=== PATIENT | male | born 1945 | race Two or more races ===

== ENCOUNTER 2020-05-05 13:16 | Outpatient (REF) | payer MEDICARE, SELFPAY | END 2020-05-05 13:17 | disposition home or self-care (01) | LOC: HO.HAP 13:16 | PROVIDERS: Visit Provider Internal Medicine | DX: Z46.1 Encounter for fitting and adjustment of hearing aid (principal) | CPT/HCPCS: 92592; 99499 ==

== ENCOUNTER 2020-06-24 11:26 | Outpatient (REF) | payer MEDICARE, SELFPAY | END 2020-06-24 11:27 | disposition home or self-care (01) | LOC: HO.HAP 11:26 | PROVIDERS: Visit Provider Internal Medicine | DX: Z46.1 Encounter for fitting and adjustment of hearing aid (principal) | CPT/HCPCS: V5266 ==

== ENCOUNTER 2020-08-05 09:07 | Outpatient (REF) | payer MEDICARE, SELFPAY ==
[2020-08-05 10:03] LABS: MANUAL DIFF FLAG NO
[2020-08-05 10:15] LABS: Basophils Absolute Auto 0.1 X10*3/uL (0.0-0.2); Basophils Percent Auto 0.9 % (0-2); Eosinophils Absolute Auto 0.2 X10*3/uL (0.0-0.4); Eosinophils Percent Auto 3.4 % (0-4); Hematocrit 43.9 % (42-52); Hemoglobin 14.6 g/dl (14.0-18.0); Imm Gran Abs Auto 0.01 X10*3/uL (0.00-0.03); Imm Gran Pct Auto 0.2 % (0.0-0.4); Lymphocytes Absolute Auto 1.5 X10*3/uL (1.2-4.9); Lymphocytes Percent Auto 26.2 % (20-40); Mean Corpuscular HGB Conc 33.3 g/dl (31.0-36.0); Mean Corpuscular Hemoglobin 32.2 pg (27.0-33.0); Mean Corpuscular Volume 96.9 fL (80-98); Monocytes Absolute Auto 0.6 X10*3/uL (0.1-1.2); Neutrophils Absolute Auto 3.5 X10*3/uL (2.0-8.3); Neutrophils Percent Auto 59.3 % (45-73); Platelet Count 223 X10*3/uL (160-400); Red Blood Count 4.53 X10*6/uL (4.60-5.80); Red Cell Distribution Width 12.3 % (11.0-16.0); White Blood Count 5.8 X10*3/uL (4.8-10.8)
[2020-08-05 10:39] LABS: Alanine Aminotransferase 23 U/L (0-40); Alkaline Phosphatase 77 U/L (39-117); Anion Gap 10 (12-20); Aspartate Amino Transferase 25 U/L (5-37); Bilirubin Total 0.6 mg/dL (0.0-1.0); Carbon Dioxide 30 mmol/L (22-29); Chloride 104 mmol/L (96-108); Cholesterol 130 mg/dL; Estimated Glomerular Filt Rate > 60; Glucose Fasting 102 mg/dL (60-99); HDL Cholesterol 31 mg/dL; LDL Cholesterol Calculated 63 mg/dl; Potassium 4.3 mmol/L (3.3-5.1); Sodium 140 mmol/L (135-145); Total Protein 7.6 g/dL (6.5-8.0); Triglycerides 181 mg/dL
[2020-08-05 10:51] LABS: Blood Urea Nitrogen 11 mg/dL (9-16); Calcium 8.9 mg/dL (8.4-10.2)
[2020-08-06 04:21] LABS: Folate 4.3 ng/mL (> or = 4.0); Vitamin B12 291 pg/mL (200-900)
== END 2020-08-05 09:08 | disposition home or self-care (01) ==
LOC: HO.LAB 09:07
PROVIDERS: PCP Internal Medicine; Visit Provider Internal Medicine
DX: E78.5 Hyperlipidemia, unspecified (principal); D51.0 Vitamin B12 deficiency anemia due to intrinsic factor deficiency; I10 Essential (primary) hypertension
CPT/HCPCS: 36415; 80053; 80061; 82607; 82746; 85025

== ENCOUNTER 2020-08-07 13:23 | Outpatient (REF) | payer MEDICARE, SELFPAY ==
[2020-08-07 14:03] LABS: COVID-19 Test Negative (Negative)
== END 2020-08-07 13:24 | disposition home or self-care (01) ==
LOC: HO.LAB 13:23
PROVIDERS: Visit Provider Internal Medicine
DX: Z20.822 Contact with and (suspected) exposure to COVID-19 (principal)
CPT/HCPCS: 36415; 87635; C9803

== ENCOUNTER 2020-08-12 10:09 | Outpatient (REF) | payer MEDICARE, SELFPAY | END 2020-08-12 10:10 | disposition home or self-care (01) | LOC: HO.LAB 10:09 | PROVIDERS: Visit Provider Internal Medicine | DX: Z20.822 Contact with and (suspected) exposure to COVID-19 (principal) | CPT/HCPCS: C9803; U0003; U0005 ==

== ENCOUNTER 2020-09-22 11:30 | Outpatient (REF) | payer MEDICARE, SELFPAY ==
--- NOTE | ~2020-09-22 | XR_ITS ---
EXAMINATION: XR SHOULDER, LEFT CLINICAL INFORMATION: Left shoulder pain. COMPARISON: None TECHNIQUE: AP external rotation, Grashey, scapular Y, and axillary views of the left shoulder. FINDINGS: There is no evidence of acute fracture or dislocation of the left shoulder. No calcific tendinitis is appreciated. Glenohumeral joint appears unremarkable with minimal spurring inferiorly. There is mild spurring about the acromioclavicular joint. No widening of the coracoclavicular space is seen. XR/XR shoulder LT min 2V IMPRESSION: No significant left shoulder abnormality appreciated.
== END 2020-09-22 11:31 | disposition home or self-care (01) ==
LOC: HO.XRAY 11:30
PROVIDERS: PCP Internal Medicine; Visit Provider Internal Medicine
DX: M25.512 Pain in left shoulder (principal)
CPT/HCPCS: 73030

== ENCOUNTER 2020-11-09 16:06 | Inpatient (IN) | payer MEDICARE, SELFPAY ==
--- NOTE | ~2020-11-09 | CT_ITS ---
EXAMINATION: CT ANGIOGRAM HEAD CT ANGIOGRAM NECK CLINICAL INFORMATION: Left-sided weakness. Acute cerebrovascular accident. COMPARISON: None available. TECHNIQUE: Initial noncontrast fall internship imaging of the head and neck was performed. Noncontrast head CT was also performed. Test bolus sequences followed by intravenous administration 70 mL of Omnipaque 350. Helical imaging was performed in the axial plane from the aortic arch to the skull vertex. Delayed postcontrast imaging of the head was also performed. The data was processed at the lead neurodiagnostic technologist's workstation for generation of MIP sequences. Angled MIPs and volume rendered reformatted images were also generated at an offline 3D workstation. Stenoses are assessed in accordance with NASCET criteria unless otherwise indicated. This CT examination was performed using dose optimization techniques as appropriate, variously including the following: *Automated exposure control. *Adjustment of mA and/or kV according to patient size (this includes techniques or standardized protocols for targeted exams where dose is matched to indication/reason for exam; i.e. extremities or head). *Use of iterative reconstruction technique. DLP: 2485 mGy-cm FINDINGS: CT Head: There is no evidence of acute intracranial hemorrhage or edematous territorial infarction. A few foci of hypoattenuation in the periventricular and deep white matter are consistent with mild microangiopathy. Orellana-white matter differentiation is preserved. Proportional prominence of the ventricles and sulcal spaces. No evidence for obstructive hydrocephalus. No abnormal mass effect or midline shift. No extra-axial fluid collections. No pathologic intra-axial enhancement or regional oligemia. No acute soft tissue or osseous abnormalities. Moderate mucosal thickening of the paranasal sinuses. The mastoid air cells and middle ear cavities are clear. Multifocal odontogenic enamel erosions. CT Neck: The thyroid gland and remaining cervical soft tissues are within normal limits. Moderate degenerative disc disease from C3-T1 with disc-osteophyte complex formation. Facet and uncovertebral joint arthropathy leads to osseous encroachment on the neural foramina from C3-T1. CT Upper Chest: The visualized lung apices and upper mediastinum are within normal limits. Neck CTA: Aortic Arch: Normal contour and caliber with mild calcific atherosclerotic disease. Classic 3 vessel branching pattern of the aortic arch. Great Vessel Origins: No significant stenosis of the branch origins. Right Common Carotid Artery: No focal stenosis or occlusion. Cervical Right Internal Carotid Artery: Calcific atherosclerotic disease of the carotid bulb and proximal internal carotid artery causing less than 50% stenosis. Left Common Carotid Artery: No focal stenosis or occlusion. Cervical Left Internal Carotid Artery: Mild calcific atherosclerotic disease of the carotid bulb and proximal internal carotid artery without flow-limiting stenosis. Cervical Right Vertebral Artery: Co-dominant. Atherosclerotic disease causes mild to moderate narrowing of the origin. Otherwise, no focal stenosis or occlusion. Cervical Left Vertebral Artery: Co-dominant. No focal stenosis or occlusion. Brain CTA: Intracranial Internal Carotid Arteries: Minimal calcific atherosclerotic disease of the intracranial internal carotid arteries without occlusion or flow-limiting stenosis. Right Anterior Cerebral Artery: Normal A1 segment. Normal opacification of the distal DARRELL segments. Left Anterior Cerebral Artery: Normal A1 segment. Normal opacification of the distal DARRELL segments. Anterior Communicating Artery: Normal. Right Middle Cerebral Artery: Normal M1 segment of the MCA without focal stenosis or occlusion. Normal arborization of the distal segments. Left Middle Cerebral Artery: Normal M1 segment of the MCA without focal stenosis or occlusion. Normal arborization of the distal segments. Right Vertebral Artery: Normal V4 segment. The posterior inferior cerebellar artery is not well opacified; however, there is no CT evidence of acute occlusion. Left Vertebral Artery: Normal V4 segment. Normal opacification of the proximal segments of the posterior inferior cerebellar artery. Basilar Artery: Normal without focal stenosis or occlusion. Normal appearance of the proximal superior cerebellar arteries. Right Posterior Cerebral Artery: Normal P1 segment. Normal opacification of the distal LEAF COVERER segments. Left Posterior Cerebral Artery: Normal P1 segment. Normal opacification of the distal LEAF COVERER segments. Normal opacification of the superior sagittal, straight, transverse, and sigmoid sinuses. CT/CT angio head neck IMPRESSION: 1. No evidence of acute intracranial hemorrhage or edematous territorial infarction. Mild underlying microangiopathy and generalized cerebral volume loss. 2. CTA of the head and neck without proximal occlusion or flow-limiting stenosis. 3. Moderate multilevel degenerative spondyloarthropathy of the cervical spine. This critical result was discussed with Dr. Bueno at 20:38 on 11/09/2020 and it was ascertained that the content and urgency of the report was understood at the time of direct communication.
--- NOTE | ~2020-11-09 | MR_ITS ---
EXAMINATION: MR BRAIN WITHOUT CONTRAST CLINICAL INFORMATION: Stroke. COMPARISON: Head CTA November 09, 2020. TECHNIQUE: Multiplanar, multisequence imaging of the brain was performed without intravenous contrast. FINDINGS: There is a small focus of acute lacunar infarction within the right lateral thalamus. There is no large territory infarction, hemorrhage, or mass. Mild to moderate patchy foci of T2/FLAIR hyperintensity is seen in the cerebral white matter most typical of chronic microangiopathy. The ventricles are normal in size without hydrocephalus. A small focus of chronic lacunar infarction is seen in the right superior cerebellum. The major arterial flow voids appear preserved at the skull base. There is scattered mild to moderate paranasal sinus mucosal thickening. MR/MR head/brain wo con IMPRESSION: Small focus of acute lacunar infarction in the right lateral thalamus. Background changes of mild to moderate chronic microangiopathy. Small chronic lacunar infarct seen in the right cerebellum.
[2020-11-09 16:14] VITALS: BP 187/90; PULSE 62; RESP 18; TEMP 36.8; O2SAT 96; BMI 30.5
--- NOTE | 2020-11-09 18:01 | ECG_ITS ---
Test Reason : WEAKNESS Blood Pressure : / mmHG Vent. Rate : 055 BPM Atrial Rate : 055 BPM P-R Int : 164 ms QRS Dur : 084 ms QT Int : 420 ms P-R-T Axes : 040 025 037 degrees QTc Int : 401 ms Sinus bradycardia with Premature atrial complexes in a pattern of bigeminy Otherwise normal ECG When compared with ECG of 02-JUL-2016 09:25, No significant change was found Referred By: Max Foote Electronically Signed By:Narendra Ryan
[2020-11-09 18:32] LABS: MANUAL DIFF FLAG NO
[2020-11-09 18:34] LABS: Basophils Absolute Auto 0.1 X10*3/uL (0.0-0.2); Basophils Percent Auto 0.8 % (0-2); Eosinophils Absolute Auto 0.4 X10*3/uL (0.0-0.4); Hematocrit 44.3 % (42-52); Imm Gran Abs Auto 0.01 X10*3/uL (0.00-0.03); Imm Gran Pct Auto 0.2 % (0.0-0.4); Lymphocytes Absolute Auto 2.9 X10*3/uL (1.2-4.9); Lymphocytes Percent Auto 46.4 % (20-40); Mean Corpuscular HGB Conc 33.9 g/dl (31.0-36.0); Mean Corpuscular Volume 97.6 fL (80-98); Mean Platelet Volume 10.4 fL (9.4-12.4); Monocytes Absolute Auto 0.6 X10*3/uL (0.1-1.2); Monocytes Percent Auto 9.6 % (2-11); Neutrophils Absolute Auto 2.3 X10*3/uL (2.0-8.3); Platelet Count 207 X10*3/uL (160-400); Red Blood Count 4.54 X10*6/uL (4.60-5.80); Red Cell Distribution Width 13.2 % (11.0-16.0); White Blood Count 6.3 X10*3/uL (4.8-10.8)
[2020-11-09 18:41] LABS: INTERNATIONAL NORM RATIO 1.1 (0.9-1.1); Prothrombin Time 12.3 SEC (9.9-13.0)
[2020-11-09 18:43] LABS: Partial Thromboplastin Time 32.9 SEC (24.1-38.0)
[2020-11-09 19:01] LABS: Anion Gap 12 (12-20); Blood Urea Nitrogen 11 mg/dL (9-16); Calcium 9.1 mg/dL (8.4-10.2); Carbon Dioxide 29 mmol/L (22-29); Chloride 104 mmol/L (96-108); Estimated Glomerular Filt Rate > 60; Glucose Random 93 mg/dL (60-115); Potassium 4.6 mmol/L (3.3-5.1); Sodium 140 mmol/L (135-145)
[2020-11-09 19:07] LABS: Troponin-I High Sensitivity 7.5 ng/L (<3.5-35.0)
--- NOTE | 2020-11-09 19:18 | ED_ITS ---
HPI - Neuro Symptoms/Deficit General Chief Complaint: General Medical Stated Complaint: stroke Time Seen by Provider: 11/09/20 16:45 Source: patient and family Mode of arrival: ambulatory Limitations: no limitations History of Present Illness HPI Narrative: Patient has history of hypertension coronary disease on baby aspirin since 1400 11/08 patient noticed sudden onset of weakness in his left leg and left arm was walking and able to ambulate because of weakness almost fell weakness continued all day and today he comes as informed his daughter who brought her to the hospital. No headache no seizures Related Data Home Medications Medication Instructions Recorded Confirmed aspirin 1 tab PO DAILY 11/09/20 11/09/20 metoprolol tartrate 1 tab PO DAILY 11/09/20 11/09/20 omeprazole 1 cap PO QAM 11/09/20 11/09/20 rosuvastatin 1 tab PO DAILY 11/09/20 11/09/20 trazodone 2 tab PO BEDTIME PRN 11/09/20 11/09/20 Allergies Allergy/AdvReac Type Severity Reaction Status Date / Time Penicillins [PENICILLINS] Allergy Intermediate Rash Verified 11/09/20 16:14 atorvastatin AdvReac Intermediate elevated Verified 11/09/20 16:14 liver enzymes quetiapine [From SEROQUEL] AdvReac Intermediate ERRATIC Verified 11/09/20 16:14 BEHAVIOR, NIGHTMARES,DIZZINESS Review of Systems Review of Systems: Constitutional : No Weight loss, No Fever, No Chills ENT/Mouth : No sore throat, No Rhinorrhea Eyes: No Eye Pain, No Swelling Cardiovascular : No Chest Pain, no palpitations Respiratory : No Cough, No Sputum, no shortness of breath Gastrointestinal : no Nausea, No Vomiting, No Diarrhea, No abdominal Pain, no black stools Genitourinary : No Dysuria, No Urinary Frequency Musculoskeletal : No joint pain, No Myalgias, No Joint Swelling Skin : No Skin Lesions, No rash Neuro : + Weakness, No Numbness, No Dizziness, No Headache Psych : No Anxiety/Panic, No Depression Heme/Lymph: No Bruising, No Lymphadenopathy Endocrine : No Polyuria, No Polydipsia All other systems reviewed and are negative Neurologic: Denies Abnormal speech present [facility] Past Medical History Medical History CAD (coronary artery disease) Dyslipidemia Essential hypertension GERD (gastroesophageal reflux disease) Hearing loss Insomnia Left shoulder pain Pernicious anemia Surgical History History of angioplasty Family History Family History Father No problems noted. Mother No problems noted. Social History Social History Alcohol intake: never Cigarettes Per Day: 5 Advance Directives: No Advance Directives Information Provided: Yes Physical Exam Vital Signs: Vital Signs: Last Vital Signs Temp 98.2 F 11/09/20 16:14 Pulse 62 11/09/20 16:14 Resp 18 11/09/20 16:14 BP 187/90 H 11/09/20 16:14 Pulse Ox 96 11/09/20 16:14 Body Mass Index 30.5 Const: General: healthy appearing and comfortable Orientation/consciousness: patient oriented x3 HENMT: Head: Yes normocephalic and Yes atraumatic Eyes: General: appearance normal, both eyes and all related structures Neck: Neck: Yes normal visual inspection and Yes full ROM Chest: Chest palpation & inspection: normal inspection of the chest Resp: Effort & Inspection: normal respiratory effort Auscultation: clear to auscultation bilaterally, no crackles and no rales Cardio: Palpation: normal PMI Rate: regular rate Rhythm: regular rhythm Heart sounds: S1 normal heart sound present and S2 normal heart sound present Bruits: Abdominal aortic bruit present Peripheral pulses: Peripheral pulses 2+ throughout GI: Inspection: Yes normal to inspection Palpation (GI): Abdominal aortic bruit present, Soft to palpation and nontender Auscultation: normal bowel sounds : General: Yes no CVA tenderness Back/Spine/Pelvis: Back: no CVA tenderness Thoracic/Lumbar Spine: thoracic and lumbar spine normal to inspection Skin: General skin exam: no rashes or lesions noted Neuro: General: patient oriented x3 and CN's II-XI intact bilaterally Cognition (Neuro): normal cognition Speech: No Abnormal speech present Gait exam (Neuro): Staggering gait present Motor exam (neuro): Other motor observations present (+4/5 left upper extremity 4 /5 left lower extremity 5/5 right-sided) MDM - Neuro Symptoms/Deficit MDM Narrative Medical decision making narrative: Patient with acute onset of left-sided weakness more than 24 hours ago CTA head neck negative for any LV 0 or stroke but clinical examination patient does have weakness more in the left lower extremities than the left upper extremity without any facial involvement or speech . Case discussed Dr. Stroud neurologist plan to admit continue aspirin MRI 2D echo in the morning to rule out any arrhythmias Lab Data Attestation: I reviewed the patient's lab results. Result diagrams: 11/09/20 18:28 11/09/20 18:28 Labs: Lab Results 11/09/20 11/09/20 11/09/20 Range/Units 18:28 18:28 18:28 WBC 6.3 (4.8-10.8) X10*3/uL RBC 4.54 L (4.60-5.80) X10*6/uL Hgb 15.0 (14.0-18.0) g/dl Hct 44.3 (42-52) % MCV 97.6 (80-98) fL MCH 33.0 (27.0-33.0) pg MCHC 33.9 (31.0-36.0) g/dl RDW 13.2 (11.0-16.0) % Plt Count 207 (160-400) X10*3/uL MPV 10.4 (9.4-12.4) fL Immature Gran % (Auto) 0.2 (0.0-0.4) % Neut % (Auto) 36.0 L (45-73) % Lymph % (Auto) 46.4 H (20-40) % Spink % (Auto) 9.6 (2-11) % Eos % (Auto) 7.0 H (0-4) % Baso % (Auto) 0.8 (0-2) % Lymph # (Auto) 2.9 (1.2-4.9) X10*3/uL Spink # (Auto) 0.6 (0.1-1.2) X10*3/uL Eos # (Auto) 0.4 (0.0-0.4) X10*3/uL Baso # (Auto) 0.1 (0.0-0.2) X10*3/uL Abs Immat Gran (auto) 0.01 (0.00-0.03) X10*3/uL Absolute Neuts (auto) 2.3 (2.0-8.3) X10*3/uL Absolute Nucleated RBC 0.000 (0.0-0.012) X10*3/uL Nucleated RBC % (auto) 0.0 (0.0-0.2) /100WBC PT 12.3 (9.9-13.0) SEC INR 1.1 (0.9-1.1) APTT 32.9 (24.1-38.0) SEC Sodium 140 (135-145) mmol/L Potassium 4.6 (3.3-5.1) mmol/L Chloride 104 (96-108) mmol/L Carbon Dioxide 29 (22-29) mmol/L Anion Gap 12 (12-20) BUN 11 (9-16) mg/dL Creatinine 1.09 (0.5-1.4) mg/dL Estim Creat Clear Calc 63.0 Estimated GFR > 60 Random Glucose 93 (60-115) mg/dL Calcium 9.1 (8.4-10.2) mg/dL Troponin I High Sens (<3.5-35.0) ng/L COVID-19 ([place]) (Negative) COVID-19 Clin Com 11/09/20 11/09/20 Range/Units 18:28 22:38 WBC (4.8-10.8) X10*3/uL RBC (4.60-5.80) X10*6/uL Hgb (14.0-18.0) g/dl Hct (42-52) % MCV (80-98) fL MCH (27.0-33.0) pg MCHC (31.0-36.0) g/dl RDW (11.0-16.0) % Plt Count (160-400) X10*3/uL MPV (9.4-12.4) fL Immature Gran % (Auto) (0.0-0.4) % Neut % (Auto) (45-73) % Lymph % (Auto) (20-40) % Spink % (Auto) (2-11) % Eos % (Auto) (0-4) % Baso % (Auto) (0-2) % Lymph # (Auto) (1.2-4.9) X10*3/uL Spink # (Auto) (0.1-1.2) X10*3/uL Eos # (Auto) (0.0-0.4) X10*3/uL Baso # (Auto) (0.0-0.2) X10*3/uL Abs Immat Gran (auto) (0.00-0.03) X10*3/uL Absolute Neuts (auto) (2.0-8.3) X10*3/uL Absolute Nucleated RBC (0.0-0.012) X10*3/uL Nucleated RBC % (auto) (0.0-0.2) /100WBC PT (9.9-13.0) SEC INR (0.9-1.1) APTT (24.1-38.0) SEC Sodium (135-145) mmol/L Potassium (3.3-5.1) mmol/L Chloride (96-108) mmol/L Carbon Dioxide (22-29) mmol/L Anion Gap (12-20) BUN (9-16) mg/dL Creatinine (0.5-1.4) mg/dL Estim Creat Clear Calc Estimated GFR Random Glucose (60-115) mg/dL Calcium (8.4-10.2) mg/dL Troponin I High Sens 7.5 (<3.5-35.0) ng/L COVID-19 ([place]) Negative (Negative) COVID-19 Clin Com See Note ECG Data Attestation: I personally reviewed and interpreted this ECG as follows: Interpretation: Sinus bradycardia with PACs heart rate 55 beats per minute normal axis normal intervals no acute ST-T changes NIH Stroke Scale Internal: Initial- Upon Arrival Level of Consciousness: Alert Level of Consciousness Questions: Answers both questions correctly Level of Consciousness Commands: Performs both tasks correctly Best Gaze: Normal Visual: No visual loss Facial Palsy: Normal Motor Arm (Right): No drift Motor Arm (Left): Drift Motor Leg (Right): No drift Motor Leg (Left): Drift Limb Ataxia: Absent Sensory: Normal Best Language: No aphasia Dysarthia: Normal Extinction and Inattention: No abnormality Score: 2 Discharge Plan Discharge Clinical Impression: Acute CVA (cerebrovascular accident) Patient Disposition: Admitted As Inpatient
[2020-11-09] MEDS: iohexoL 350 MG/ML 100 ML INFUS..BTL IV (19:37)
[2020-11-09] MEDS: Aspirin 81 MG TAB.CHEW 162 MG PO (20:22)
[2020-11-09 23:01] LABS: COVID-19 Test Negative (Negative)
[2020-11-10] VITALS (13 sets, daily range): BP systolic 128–191; BP diastolic 58–96; PULSE 53–73; RESP 16–18; TEMP 36.4–36.9; O2SAT 94–98
--- NOTE | 2020-11-10 | ECG_ITS ---
Test Reason : ALESHA Blood Pressure : / mmHG Vent. Rate : 053 BPM Atrial Rate : 053 BPM P-R Int : 162 ms QRS Dur : 084 ms QT Int : 476 ms P-R-T Axes : 067 054 075 degrees QTc Int : 446 ms Sinus bradycardia Otherwise normal ECG When compared with ECG of 09-NOV-2020 18:15, Premature atrial complexes are no longer Present Referred By: Max Foote Electronically Signed By:Narendra Ryan
[2020-11-10 00:54] LABS: MANUAL DIFF FLAG NO
[2020-11-10 01:00] LABS: Basophils Absolute Auto 0.1 X10*3/uL (0.0-0.2); Basophils Percent Auto 0.9 % (0-2); Eosinophils Absolute Auto 0.3 X10*3/uL (0.0-0.4); Eosinophils Percent Auto 5.2 % (0-4); Hematocrit 40.4 % (42-52); Hemoglobin 13.5 g/dl (14.0-18.0); Imm Gran Abs Auto 0.01 X10*3/uL (0.00-0.03); Imm Gran Pct Auto 0.2 % (0.0-0.4); Lymphocytes Absolute Auto 2.8 X10*3/uL (1.2-4.9); Lymphocytes Percent Auto 42.8 % (20-40); Mean Corpuscular HGB Conc 33.4 g/dl (31.0-36.0); Mean Corpuscular Hemoglobin 32.2 pg (27.0-33.0); Mean Corpuscular Volume 96.4 fL (80-98); Mean Platelet Volume 10.5 fL (9.4-12.4); Monocytes Absolute Auto 0.8 X10*3/uL (0.1-1.2); Monocytes Percent Auto 11.7 % (2-11); Neutrophils Absolute Auto 2.6 X10*3/uL (2.0-8.3); Neutrophils Percent Auto 39.2 % (45-73); Platelet Count 181 X10*3/uL (160-400); Red Blood Count 4.19 X10*6/uL (4.60-5.80); Red Cell Distribution Width 13.1 % (11.0-16.0); White Blood Count 6.6 X10*3/uL (4.8-10.8)
[2020-11-10 01:22] LABS: Anion Gap 9 (12-20); Blood Urea Nitrogen 10 mg/dL (9-16); Calcium 8.8 mg/dL (8.4-10.2); Carbon Dioxide 29 mmol/L (22-29); Chloride 106 mmol/L (96-108); Glucose Random 88 mg/dL (60-115); Potassium 4.2 mmol/L (3.3-5.1); Sodium 140 mmol/L (135-145)
--- NOTE | 2020-11-10 01:22 | PC.NURSE ---
BP / Hospitalist (Qamar) notified
--- NOTE | 2020-11-10 01:22 | PC.NURSE ---
pt alert and oriented. oriented to self, location, time and situation. pt is hard of hearing/deaf and uses hearing aid. verbal response and eye contact appropriate for setting. respirations even and unlabored. no distress noted at this time. call marin in reach.
[2020-11-10 01:31] LABS: Creatinine Clr Calc Pharmacy 76.4; Estimated Glomerular Filt Rate > 60
[2020-11-10] MEDS: hydrALAZINE HCl 20 MG/ML VIAL 5 MG IVPUSH (01:36)
[2020-11-10] MEDS: traZODone HCL 100 MG TABLET 200 MG PO (02:56)
[2020-11-10] MEDS: ondansetron HCL 4 MG/2 ML VIAL IVPUSH (04:40)
--- NOTE | 2020-11-10 04:46 | PC.NURSE ---
pt heartrate down to 41 bpm. pt appearing pale, diaphoretic and complaining of nausea hospitalist (Qamar) notified. prn zofran given EKG obtained by cable technician pt placed in supine position and stated he felt better after position change pt placed on 2L 02 nasal cannula
[2020-11-10 04:48] LABS: Glucose, Whole Blood 106 mg/dL (60-115)
--- NOTE | 2020-11-10 04:57 | PC.NURSE ---
pt given crackers, orange juice and jello. pt currently in bed in semi fowlers eating. skin back to baseline color PWD, no longer diaphoretic. no distress noted at this time. call marin in reach
--- NOTE | 2020-11-10 05:02 | PC.NURSE ---
neuro assessment: perrla pt able to smile and stick out tongue pt able to squeeze this nurses fingers with both his hands pt able to lift arms and legs bilaterally pt able to push and pull against this nurses hands with both his feet. hospitalist aware
--- NOTE | 2020-11-10 06:09 | P.HPHOSP_ITS ---
History of Present Illness Date of Service: 11/09/20 Chief Complaint: weakness This is a Gibraltarian-speaking only 74-year-old male with past medical history of CAD, dyslipidemia, HTN, GERD, hearing loss, insomnia, pernicious anemia who presents to the hospital with complaints of left-sided weakness. Patient is very hard of hearing and even with the help of undercoat sprayer was difficulty to get much history from him due to the difficulty hearing. Patient reports that around 2:00 p.m. on Monday he started developing weakness as well as pain in his left upper and lower extremity. The weakness worsened and he also had worsening pain and therefore decided to come to the hospital today. He denies any slurred speech, no change in vision, no headache, denies any facial droop, he reports that he has difficulty walking due to the weakness in his left leg. He denies any chest pain, no abdominal pain, nausea or vomi ting, no diarrhea or constipation, no urinary symptoms and no lower extremity edema. Denies any shortness of breath cough or sputum production. No fever or chills. On arrival to the ED patient hemodynamically stable with No significant abnormal vitals Labs are significant for WBC count of 6.6, hemoglobin of 13.5, otherwise unremarkable Head and neck CT angiogram shows of acute intracranial hemorrhage or at about a story [place]ie infarction. Mild underlying microangiopathy and generalized cerebral volume loss. CTA of the head and neck without proximal occlusion or flow- limiting stenosis. Neurology was consulted, recommended admission Review of Systems Review of Systems: Yes all other systems are reviewed and are negative [facility] Medical History CAD (coronary artery disease) Dyslipidemia Essential hypertension GERD (gastroesophageal reflux disease) Hearing loss Insomnia Left shoulder pain Pernicious anemia Family History Father No problems noted. Mother No problems noted. Surgical History History of angioplasty Social History Alcohol intake: never Cigarettes Per Day: 5 Advance Directives: No Advance Directives Information Provided: Yes Meds Allergies Allergy/AdvReac Type Severity Reaction Status Date / Time Penicillins [PENICILLINS] Allergy Intermediate Rash Verified 11/09/20 16:14 atorvastatin AdvReac Intermediate elevated Verified 11/09/20 16:14 liver enzymes quetiapine [From SEROQUEL] AdvReac Intermediate ERRATIC Verified 11/09/20 16:14 BEHAVIOR, NIGHTMARES,DIZZINESS Active Medications: Current Medications Generic Name Dose Route Start Last Admin Trade Name Freq PRN Reason Stop Dose Admin Acetaminophen 650 mg 11/09/20 23:49 Acetaminophen 325 Mg Tablet PO Q6H PRN Pain, Mild (Pain Scale 1-3) Aspirin 81 mg 11/10/20 09:00 Aspirin Enteric Coated 81 Mg Tablet. PO DAILY LAUREN Atorvastatin Calcium 80 mg 11/10/20 09:00 Atorvastatin Calcium 80 Mg Tablet PO DAILY LAUREN Docusate Sodium 100 mg 11/09/20 23:49 Docusate Sodium 100 Mg Capsule PO DAILY PRN Constipation Omeprazole 20 mg 11/10/20 06:30 Omeprazole 20 Mg Capsule. PO 0630 LAUREN Ondansetron HCl 4 mg 11/09/20 23:49 11/10/20 04:40 Ondansetron Hcl 4 Mg/2 Ml Vial IVPUSH 4 mg Q8H PRN Administration Nausea and Vomiting Trazodone HCl 200 mg 11/09/20 23:52 11/10/20 02:56 Trazodone Hcl 100 Mg Tablet PO 200 mg BEDTIME PRN Administration Sleep Home Medications Medication Instructions Recorded Confirmed Last Taken Type aspirin 1 tab PO DAILY 11/09/20 11/09/20 Unknown History metoprolol tartrate 1 tab PO DAILY 11/09/20 11/09/20 Unknown History omeprazole 1 cap PO QAM 11/09/20 11/09/20 Unknown History rosuvastatin 1 tab PO DAILY 11/09/20 11/09/20 Unknown History trazodone 2 tab PO BEDTIME PRN 11/09/20 11/09/20 Unknown History Physical Exam Vital Signs and Narrative: Vital Signs: Last Vital Signs Temp 97.8 F 11/10/20 01:05 Pulse 62 11/10/20 05:52 Resp 16 11/10/20 05:52 BP 128/58 L 11/10/20 04:41 Pulse Ox 94 11/10/20 04:41 Body Mass Index 30.5 Const: General: cooperative and no acute distress Orientation/consciousness: patient oriented x3 Eyes: General: appearance normal, both eyes and all related structures Resp: Effort & Inspection: normal respiratory effort and able to speak in complete sentences Auscultation: clear to auscultation bilaterally Cardio: Rate: regular rate Rhythm: regular rhythm GI: Palpation (GI): Soft to palpation Auscultation: normal bowel sounds Skin: General skin exam: no rashes or lesions noted Neuro: Other: 4/5 strength in the left lower extremity, left upper extremity with a strength 3/5, sensation intact, General: patient oriented x3 and CN's II-XI intact bilaterally Cognition (Neuro): normal cognition Extrem: General: Yes normal to inspection and Yes no pedal edema Results Labs CBC and Chem 7: 11/10/20 00:44 11/10/20 00:44 Labs: Laboratory Results - last 24 hr 11/09/20 11/09/20 11/09/20 18:28 18:28 18:28 MCV 97.6 MCH 33.0 MCHC 33.9 RDW 13.2 Plt Count 207 MPV 10.4 Immature Gran % (Auto) 0.2 Neut % (Auto) 36.0 L Lymph % (Auto) 46.4 H [place] % (Auto) 9.6 Eos % (Auto) 7.0 H Baso % (Auto) 0.8 Lymph # (Auto) 2.9 [place] # (Auto) 0.6 Eos # (Auto) 0.4 Baso # (Auto) 0.1 Abs Immat Gran (auto) 0.01 Absolute Neuts (auto) 2.3 Absolute Nucleated RBC 0.000 Nucleated RBC % (auto) 0.0 PT 12.3 INR 1.1 APTT 32.9 Anion Gap 12 Estim Creat Clear Calc 63.0 Estimated GFR > 60 POC Glucose Random Glucose 93 Calcium 9.1 Troponin I High Sens COVID-19 ([facility]INE) COVID-19 Clin Com 11/09/20 11/09/20 11/10/20 18:28 22:38 00:44 MCV MCH MCHC RDW Plt Count MPV Immature Gran % (Auto) Neut % (Auto) Lymph % (Auto) [place] % (Auto) Eos % (Auto) Baso % (Auto) Lymph # (Auto) [place] # (Auto) Eos # (Auto) Baso # (Auto) Abs Immat Gran (auto) Absolute Neuts (auto) Absolute Nucleated RBC Nucleated RBC % (auto) PT INR APTT Anion Gap 9 L Estim Creat Clear Calc 76.4 Estimated GFR > 60 POC Glucose Random Glucose 88 Calcium 8.8 Troponin I High Sens 7.5 COVID-19 ([facility]INE) Negative COVID-19 Clin Com See Note 11/10/20 11/10/20 00:44 04:37 MCV 96.4 MCH 32.2 MCHC 33.4 RDW 13.1 Plt Count 181 MPV 10.5 Immature Gran % (Auto) 0.2 Neut % (Auto) 39.2 L Lymph % (Auto) 42.8 H [place] % (Auto) 11.7 H Eos % (Auto) 5.2 H Baso % (Auto) 0.9 Lymph # (Auto) 2.8 [place] # (Auto) 0.8 Eos # (Auto) 0.3 Baso # (Auto) 0.1 Abs Immat Gran (auto) 0.01 Absolute Neuts (auto) 2.6 Absolute Nucleated RBC 0.000 Nucleated RBC % (auto) 0.0 PT INR APTT Anion Gap Estim Creat Clear Calc Estimated GFR POC Glucose 106 Random Glucose Calcium Troponin I High Sens COVID-19 ([facility]INE) COVID-19 Clin Com Imaging Radiologist's Impressions: Impressions Head/Neck CTA 11/09/20 17:59 IMPRESSION: 1. No evidence of acute intracranial hemorrhage or edematous territorial infarction. Mild underlying microangiopathy and generalized cerebral volume loss. 2. CTA of the head and neck without proximal occlusion or flow-limiting stenosis. 3. Moderate multilevel degenerative spondyloarthropathy of the cervical spine. This critical result was discussed with Dr. Bueno at 20:38 on 11/09/2020 and it was ascertained that the content and urgency of the report was understood at the time of direct communication. Assessment and Plan (1) Acute CVA (cerebrovascular accident): Status: Acute 74-year-old male with past medical history of CAD, HLD, who presents to the hospital with complaints of left-sided weakness will be admitted for further evaluation of stroke # acute CVA - has left-sided weakness most likely acute stroke - CT angiogram negative at this time - will obtain MRI in the a.m. - echocardiogram - patient on rosuvastatin, will switch to high dose atorvastatin - on ASA at home-will continue # HLD - continue high dose statin # insomnia - conitnue trazodone # CAD - continue ASA DVT prophylaxis:Lovenox Quality Stroke Does the patient have a stroke diagnosis?: No VTE Prior VTE?: No VTE Risk Level:: Medical - moderate - high VTE Device Contraindication: Treatment Not Indicated VTE Drug Contraindication: N/A - Med Ordered
[2020-11-10 07:27] LABS: Cholesterol 135 mg/dL; HDL Cholesterol 25 mg/dL; LDL Cholesterol Calculated 63 mg/dl; Triglycerides 237 mg/dL
[2020-11-10] MEDS: Aspirin Enteric Coated 81 MG TABLET.DR PO (07:54)
[2020-11-10] MEDS: Atorvastatin Calcium 80 MG TABLET PO (07:54)
[2020-11-10] MEDS: Enoxaparin Sodium 40 MG/0.4 ML SYRINGE SUBCUT (07:54)
[2020-11-10] MEDS: Omeprazole 20 MG CAPSULE.DR PO (07:54)
--- NOTE | 2020-11-10 09:30 | CA_ITS ---
Transthoracic Echocardiogram Patient (Last, First, Middle): Cristino Orellana J Gender: Male Date of : 1945 Age: 74 Procedure Date: 11/10/2020 Procedure Type: Transthoracic Echocardiogram Location: ER Height: 170.18 cm Weight: 88. kg BSA: 2.00 m2 Heart Rate: bpm BP: 128 / [address] Sweeper Operator: Referring MD: Max Foote MD Symptoms: stroke Conclusions: - Normal left ventricular size and systolic function. There is mildly increased left ventricular wall thickness. The visually estimated ejection fraction is between 60-65%. - There is a 3.7 x 3.4 mm calcified mobile structure attached to the ventricular aspect of the aortic valve (likely noncoronary cusp). Differentials including mobile plaque vs healed vegetation. Findings Left Ventricle Normal left ventricular size and systolic function. There is mildly increased left ventricular wall thickness. The visually estimated ejection fraction is between 60-65%. There is no evidence of regional wall motion abnormalities. Abnormal diastolic function is noted. Spectral Doppler is indicative of an impaired relaxation filling pattern. E/E prime ratio is between 8 and 15 consistent with indeterminate filling pressures. Right Ventricle Normal right ventricular cavity size and systolic function. Atria Both atria are normal in size. There is no evidence of interatrial shunt by color Doppler. Aortic Valve There is mild thickening of the aortic valve. There is no aortic valve stenosis. There is trace (trivial) aortic valve regurgitation. There is a 3.7 x 3.4 mm calcified mobile structure attached to the ventricular aspect of the aortic valve (likely noncoronary cusp). Differentials including mobile plaque vs healed vegetation. Mitral Valve There is moderate mitral annular calcification. There is no mitral valve regurgitation. There is no mitral valve stenosis. Pulmonic Valve Normal pulmonic valve structure and function. There is trace pulmonic valve regurgitation. Tricuspid Valve Normal tricuspid valve structure and function. There is no tricuspid valve regurgitation. Normal right atrial pressure. There is no evidence of pulmonary hypertension. Great Vessels Moderate plaque is seen in the ascending aorta. The visualized portions of the pulmonary artery and branches are normal. Venous The inferior vena cava is normal in size and collapses greater than 50% with inspiration. Pericardium/Pleural There is no evidence of pericardial effusion. Prior Study Comparison Changes noted compared to prior study dated: 07/01/2016. There is a 3.7 x 3.4 mm calcified mobile structure attached to the ventricular aspect of the aortic valve (likely noncoronary cusp). Differentials including mobile plaque vs healed vegetation. Please send a set of blood cultures. Measurements 2D Linear Measurements RVIDd: 2.84 RVIDd Index: 1.42 IVSd: 1.14 0.6-0.9/0.6-1.0 cm LVIDd: 4.49 3.9-5.3/4.2-5.9 cm LVIDd Index: 2.25 2.4-3.2/2.2-3.1 cm/m2 LVIDs: 2.89 2.0-3.6 cm LVPWd: 1.29 0.7-1.1 cm Ao Root: 2.90 2.1-3.5 cm LA Diam: 3.80 2.7-3.8/3.0-4.0 cm LAIDs Index: 1.90 1.5-2.3 cm/m2 LV Mass: 250.49 67-162/88-224 g LV Mass Index: 125.24 43-95/49-115 g/m2 LVOT Diam: 2.20 3.0+(-)1.3 cm 2D Systolic Function EF 4C: 58.80 >55% EF 2C: 50.20 >55% EF BiP: 55.30 >55% Mitral Valve MV Pk E: 0.53 MV PK A: 0.63 MV Decel Time: 349.00 E/A: 0.80 E'Lateral: 8.16 E'Medial: 4.24 E/E' Med: 12.40 E/E' Lat: 6.50 Aortic Valve AoV Pk Art: 1.66 AoV Mn Art: 1.17 AoV VTI: 0.30 AoV Pk Grad: 11.00 Aov Mn Grad: 6.00 CAITLIN Cont.VTI: 2.55 LVOT LVOT Pk Art: 1.01 LVOT Mn Art: 0.69 LVOT VTI: 0.20 LVOT Pk Grad: 4.00 LVOT Mn Grad: 2.00 LVOT Diam: 2.20 LVOT Area: 3.80 Diastolic Function MV Pk E: 0.53 MV Pk A: 0.63 E/A: 0.80 E'Medial: 4.24 E/E' Med: 12.40 E' Laterial: 8.16 E/E' Lat: 6.50 Tricuspid Valve TR Pk Art: 2.44 TR Pk Grad: 24.00 RA Press: 3.00 RVSP: 27.00 Great Vessels Aorta Ao Root-2D: 2.90 2.0-3.7 cm Ao Asc: 3.40 2.1-3.4 cm Ao Arch: 3.30 Updated in Other Vendor System with Status of Final Naerndra Ryan MD electronically signed on 11/10/2020 2:58:48 PM with status of Final
--- NOTE | 2020-11-10 09:46 | P.PNIM_ITS ---
Subjective Subjective Date of Service: 11/10/20 Neurologic Neurologic: Denies Abnormal speech present Physical Exam Vital Signs: Vital Signs: Last Vital Signs Temp 97.8 F 11/10/20 01:05 Pulse 73 11/10/20 09:23 Resp 18 11/10/20 07:57 BP 151/93 H 11/10/20 09:23 Pulse Ox 98 11/10/20 09:23 Body Mass Index 30.5 Const: General: cooperative, healthy appearing, comfortable and no acute distress Orientation/consciousness: patient oriented x3 HENMT: Head: Yes normocephalic and Yes atraumatic Eyes: General: appearance normal, both eyes and all related structures Neck: Neck: Yes normal visual inspection and Yes full ROM Chest: Chest palpation & inspection: normal inspection of the chest Resp: Effort & Inspection: normal respiratory effort and able to speak in complete sentences Auscultation: clear to auscultation bilaterally, no c rackles and no rales Cardio: Palpation: normal PMI Rate: regular rate Rhythm: regular rhythm Heart sounds: S1 normal heart sound present and S2 normal heart sound present Bruits: Abdominal aortic bruit present Peripheral pulses: Peripheral pulses 2+ throughout GI: Inspection: Yes normal to inspection Palpation (GI): Abdominal aortic bruit present, Soft to palpation and nontender Auscultation: normal bowel sounds : General: Yes no CVA tenderness Back/Spine/Pelvis: Back: no CVA tenderness Thoracic/Lumbar Spine: thoracic and lumbar spine normal to inspection Skin: General skin exam: no rashes or lesions noted Neuro: Other: 4/5 strength in the left lower extremity, left upper extremity with a strength 3/5, sensation intact, General: patient oriented x3 and CN's II-XI intact bilaterally Cognition (Neuro): normal cognition Speech: No Abnormal speech present Gait exam (Neuro): Staggering gait present Motor exam (neuro): Other motor observations present (+4/5 left upper extremity 4 /5 left lower extremity 5/5 right-sided) Extrem: General: Yes normal to inspection and Yes no pedal edema Objective Data Current Medications Generic Name Dose Route Start Last Admin Trade Name Freq PRN Reason Stop Dose Admin Acetaminophen 650 mg 11/09/20 23:49 Acetaminophen 325 Mg Tablet PO Q6H PRN Pain, Mild (Pain Scale 1-3) Aspirin 81 mg 11/10/20 09:00 11/10/20 07:54 Aspirin Enteric Coated 81 Mg Tablet. PO 81 mg DAILY LAUREN Administration Atorvastatin Calcium 80 mg 11/10/20 09:00 11/10/20 07:54 Atorvastatin Calcium 80 Mg Tablet PO 80 mg DAILY LAUREN Administration Docusate Sodium 100 mg 11/09/20 23:49 Docusate Sodium 100 Mg Capsule PO DAILY PRN Constipation Enoxaparin Sodium 40 mg 11/10/20 09:00 11/10/20 07:54 Enoxaparin Sodium 40 Mg/0.4 Ml Syringe SUBCUT 40 mg Q24H LAUREN Administration Omeprazole 20 mg 11/10/20 06:30 11/10/20 07:54 Omeprazole 20 Mg Capsule. PO 20 mg 0630 LAUREN Administration Ondansetron HCl 4 mg 11/09/20 23:49 11/10/20 04:40 Ondansetron Hcl 4 Mg/2 Ml Vial IVPUSH 4 mg Q8H PRN Administration Nausea and Vomiting Trazodone HCl 200 mg 11/09/20 23:52 11/10/20 02:56 Trazodone Hcl 100 Mg Tablet PO 200 mg BEDTIME PRN Administration Sleep Labs CBC & Chem 7: 11/10/20 00:44 11/10/20 00:44 Labs: Triglycerides 237 Cholesterol 135 LDL Cholesterol, Calc 63 HDL Cholesterol 25 Quality Stroke Does the patient have a stroke diagnosis?: No VTE Prior VTE?: No VTE Risk Level:: Medical - moderate - high VTE Device Contraindication: Treatment Not Indicated VTE Drug Contraindication: N/A - Med Ordered Assessment and Plan (1) Acute CVA (cerebrovascular accident): Status: Acute Assessment and Plan: 74-year-old male with past medical history of CAD, HLD, who presents to the hospital with left-sided weakness and concern for stroke not yet evident on CT # Acute CVA as seen on MR - has left-sided weakness most likely acute stroke - CT angiogram negative at this time - MRI:Small focus of acute lacunar infarction in the right lateral thalamus. - echocardiogram - patient on rosuvastatin, changed to high intensity statin ( atorvastatin) - on ASA at home-will continue -Neuro consult pending -PT and OT eval # HLD - continue high dose statin -Hypertrigliceridemia, add Fenofibrate # Insomnia - conitnue trazodone # CAD - continue ASA DVT prophylaxis:Lovenox
[2020-11-10] MEDS: Fenofibrate 54 MG TABLET PO (10:06)
--- NOTE | 2020-11-10 10:08 | PC.NURSE ---
alert, speech clear, skin wpd, nad, b/l smile and [facility] ascp consultant strength, swallows fine, b/l smile no drift
--- NOTE | 2020-11-10 11:27 | PC.NURSE ---
nad, having bedside echo
--- NOTE | 2020-11-10 12:52 | PM.NEUROCN ---
History of Present Illness Data of Consult Service Date: 11/10/20 Primary Care Provider: Unknown Physician HPI Reason for consult: Left leg weakness for 2 days, left hand numbness for one day This is a 74-year-old man with a history of hypertension, dyslipidemia hearing loss and a small myocardial infarction a few years ago, pernicious anemia and GERD who noted her around 2 PM on Monday, while walking the part that his left leg was not quite right. The symptoms continued and guarded worse in the night. 24 hours later he called his daughter because he was feeling some numbness in the left hand as well. He was brought to the hospital more than 24 hours after onset of symptoms with some left leg weakness and slight left hand numbness. There was no headache or dizziness. There was no speech impediment or facial droop and no visual disturbance. Since then he feels sits little bit better but not back to normal. He had a CTA which did not show any occlusive disease in the neck or intracranial circulation. MRI shows a moderate sized lacunar stroke in the right lateral thalamic posterior capsular area. There is also mild microvascular white matter changes. There is no previous history of stroke or TIA. He had already been on metoprolol and aspirin on admission. He Review of Systems Eyes: Eyes: Reports no additional eye complaints ENT: Reports system reviewed and no additional complaints, except as documented and Reports Normal hearing present Cardiovascular: Cardiovascular: Reports no additional cardiovascular complaints Respiratory: Respiratory: Reports no additional respiratory complaints Gastrointestinal: Gastrointestinal: Reports no additional gastrointestinal complaints Genitourinary: Genitourinary: Reports no additional male genitourinary complaints Musculoskeletal: Musculoskeletal: Reports no additional musculoskeletal complaints Integumentary/Breasts: Skin/Breast: Reports system reviewed and no additional complaints, except as docu Neurologic: Reports as per HPI and Reports Normal hearing present Psychiatric: Psychiatric: Reports as per HPI Endocrine: Endocrine: Reports no additional endocrine complaints Hematologic/Lymphatic: Hematologic/Lymphatic: Reports no additional hematologic/lymphatic complaints Allergic/Immunologic: Allergic/Immunologic: Reports no additional allergic/immunologic complaints [facility] Past Medical History Medical History CAD (coronary artery disease) Dyslipidemia Essential hypertension GERD (gastroesophageal reflux disease) Hearing loss Insomnia Left shoulder pain Pernicious anemia Family History Family History Father No problems noted. Mother No problems noted. Surgical History Surgical History History of angioplasty Social History Social History Alcohol intake: never Cigarettes Per Day: 5 Advance Directives: No Advance Directives Information Provided: Yes Meds Allergies Allergy/AdvReac Type Severity Reaction Status Date / Time Penicillins [PENICILLINS] Allergy Intermediate Rash Verified 11/09/20 16:14 atorvastatin AdvReac Intermediate elevated Verified 11/09/20 16:14 liver enzymes quetiapine [From SEROQUEL] AdvReac Intermediate ERRATIC Verified 11/09/20 16:14 BEHAVIOR, NIGHTMARES,DIZZINESS Active Medications: Current Medications Generic Name Dose Route Start Last Admin Trade Name Freq PRN Reason Stop Dose Admin Acetaminophen 650 mg 11/09/20 23:49 Acetaminophen 325 Mg Tablet PO Q6H PRN Pain, Mild (Pain Scale 1-3) Aspirin 81 mg 11/10/20 09:00 11/10/20 07:54 Aspirin Enteric Coated 81 Mg Tablet. PO 81 mg DAILY LAUREN Administration Atorvastatin Calcium 80 mg 11/10/20 09:00 11/10/20 07:54 Atorvastatin Calcium 80 Mg Tablet PO 80 mg DAILY LAUREN Administration Docusate Sodium 100 mg 11/09/20 23:49 Docusate Sodium 100 Mg Capsule PO DAILY PRN Constipation Enoxaparin Sodium 40 mg 11/10/20 09:00 11/10/20 07:54 Enoxaparin Sodium 40 Mg/0.4 Ml Syringe SUBCUT 40 mg Q24H LAUREN Administration Fenofibrate 54 mg 11/10/20 10:00 11/10/20 10:06 Fenofibrate 54 Mg Tablet PO 54 mg DAILY LAUREN Administration Omeprazole 20 mg 11/10/20 06:30 11/10/20 07:54 Omeprazole 20 Mg Capsule. PO 20 mg 0630 LAUREN Administration Ondansetron HCl 4 mg 11/09/20 23:49 11/10/20 04:40 Ondansetron Hcl 4 Mg/2 Ml Vial IVPUSH 4 mg Q8H PRN Administration Nausea and Vomiting Trazodone HCl 200 mg 11/09/20 23:52 11/10/20 02:56 Trazodone Hcl 100 Mg Tablet PO 200 mg BEDTIME PRN Administration Sleep Home Medications Medication Instructions Recorded Confirmed Last Taken Type aspirin 1 tab PO DAILY 11/09/20 11/09/20 Unknown History metoprolol tartrate 1 tab PO DAILY 11/09/20 11/09/20 Unknown History omeprazole 1 cap PO QAM 11/09/20 11/09/20 Unknown History rosuvastatin 1 tab PO DAILY 11/09/20 11/09/20 Unknown History trazodone 2 tab PO BEDTIME PRN 11/09/20 11/09/20 Unknown History Physical Exam Vital Signs: Vital Signs: Last Vital Signs Temp 97.8 F 11/10/20 01:05 Pulse 68 11/10/20 10:07 Resp 18 11/10/20 10:07 BP 160/80 H 11/10/20 10:07 Pulse Ox 96 11/10/20 10:07 Body Mass Index 30.5 Const: General: cooperative, comfortable, no acute distress, well developed, alert and awake Nutritional Appearance: well nourished Orientation/consciousness: oriented to person, oriented to place and oriented to time Limitations: no limitations HENMT: Head: Yes normal to inspection, Yes normocephalic and Yes atraumatic Ears: hearing grossly normal bilaterally (Severe hearing loss bilaterally. Has hearing aids) General nose exam: Normal external nose present Face and sinus: Yes normal facial exam Mouth: Normal oral and palatal mucosa present Eyes: General: appearance normal, both eyes and all related structures Visual Richard: normal visual richard by confrontation Alignment and Position: alignment normal Periorbital: periorbital findings normal Eyelids: Yes eyelids normal Conjunctivae: conjunctivae normal Sclerae: sclerae normal Corneas: corneas normal Pupils: Equal, round and reactive pupils present and Pupil accommodation reflex normal EOM: EOMs intact bilaterally Direct Ophthalmoscopy: normal light reflex Neck: Neck: Yes normal visual inspection, Yes full ROM and Yes no meningeal signs Thyroid: Thyroid normal Carotids: normal carotid upstroke and bounding pulses Chest: Chest palpation & inspection: normal inspection of the chest Resp: Effort & Inspection: normal respiratory effort Auscultation: clear to auscultation bilaterally Cardio: Rate: regular rate Rhythm: regular rhythm Heart sounds: S1 normal heart sound present and S2 normal heart sound present Peripheral pulses: Peripheral pulses 2+ throughout GI: Inspection: Yes normal to inspection Percussion: Yes normal to percussion Auscultation: normal bowel sounds Rectal Exam - Male: Yes deferred Back/Spine/Pelvis: Cervical Spine: normal cervical lordosis and cervical ROM normal Thoracic/Lumbar Spine: thoracic and lumbar spine normal to inspection Skin: General skin exam: no rashes or lesions noted Neuro: Other: Minimal weakness of left deltoid 5 minus/5. Left hip flexor and dorsiflexor weakness, 4+/5, with normal recent reflexes and flexor plantar responses General: oriented to person, oriented to place, oriented to time, gait normal, tone normal, moves all extremities, Normal light touch and pain sensation, no meningeal signs, no focal motor deficits, CN's II-XI intact bilaterally (Severe hearing loss bilaterally), normal sensation to monofilament and deep tendon reflexes 2+ bilaterally Cranial nerves: Yes CN's II-XII intact bilaterally, Yes Equal, round and reactive pupils present, Yes Bilaterally intact EOM present, Yes Nystagmus not present, Yes Normal facial strength present, Yes Midline tongue present, Yes Normal gag reflex present, Yes Symmetric palate elevation present, Yes Normal hearing present and Yes Ability to bilaterally rotate head present Cognition (Neuro): normal cognition Speech: Other speech findings present (Neuro) Motor exam (neuro): 5/5 motor strength present throughout (Except for subtle weakness in the left deltoid. Hip flexor and dorsiflexor), Pronator motor function not present, no tremor noted, no asterixis, Motor fasciculations not present, Normal motor muscle tone present throughout and Motor abnormalities not present Sensory Exam: Bilaterally intact graphesthesia Deep tendon reflexes (DTR's): Right triceps reflex intensity grade: 2+, Left triceps reflex intensity grade: 2+, Rt Biceps (C5, C6): 2+, Left biceps reflex intensity grade: 2+, Right brachioradialis reflex intensity grade: 2+, Left brachioradialis reflex intensity grade: 2+, Right patellar reflex intensity grade: 2+, Left patellar reflex intensity grade: 2+, Right ankle reflex intensity grade: 2+ and Left ankle reflex intensity grade: 2+ Plantar Reflex Responses: downgoing: right, left and bilateral Coordination: [id number] test normal, [id number]-[id number] test normal and Romberg test negative Pupils: Normal pupillary reactivity/response: bilateral Extrem: General: Yes normal to inspection, Yes normal exam except as noted and Yes no pedal edema Psych: Appearance: grossly normal Mental Status: mental status grossly normal Speech and movement: Normal speech and movement present and Clear speech present Affect: normal affect Attitude: cooperative Thought process: Normal thought process present Results Labs CBC & Chem 7: 11/10/20 00:44 11/10/20 00:44 Labs: Short CBC 11/09/20 11/10/20 Range/Units 18:28 00:44 WBC 6.3 6.6 (4.8-10.8) X10*3/uL Hgb 15.0 13.5 L (14.0-18.0) g/dl Hct 44.3 40.4 L (42-52) % Plt Count 207 181 (160-400) X10*3/uL BMP 11/09/20 11/10/20 18:28 00:44 Sodium 140 140 Potassium 4.6 4.2 Chloride 104 106 Carbon Dioxide 29 29 BUN 11 10 Creatinine 1.09 0.90 Calcium 9.1 8.8 Assessment and Plan (1) Acute CVA (cerebrovascular accident): Status: Acute Small vessel disease with a lacunar stroke right lateral thalamus and posture Stroke. Expect complete recovery in a few weeks. He has no evidence of any major vascular occlusive disease in the neck or intracranial circulation. The recommendation would be to control his blood pressure and continue aspirin 81 mg. PT, OT (2) Dyslipidemia: Status: Acute Check lipid profile and suggest atorvastatin 80 mg a day (3) Hearing loss: Status: Acute (4) Essential hypertension: Status: Acute Control of blood ppressure trying to keep systolic below 1:30 and diastolic below 80 (5) CAD (coronary artery disease): Qualifiers: Coronary Disease-Associated Artery/Lesion type: [place] artery [place] vs. transplanted heart: [place] heart Associated angina: angina presence unspecified Qualified Code(s): I25.10 - Atherosclerotic heart disease of [place] coronary artery without angina pectoris Status: Acute Procedures Date of Service Date of Service: 11/10/20
--- NOTE | 2020-11-10 14:18 | MHC.CM.PN ---
Met with patient and daughter, Reena in regards to discharge planning. Patient is primarily Malagasy speaking. Patient's daughter speaks Uruguayan & Malagasy. 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 Patient lives alone, ambulates with a cane during the winter weathers and is active with [facility]. He receives medical transportation as needed. PCP verified. Daughter has a copy of patient's HCP at home and will attempt to obtain a copy. IMM explained and signed. Physical therapy and occupational therapy evals are completing. Home with services vs short term rehab are being recommended. Patient and daughter would prefer patient discharge home with services. Spoke with Mary at [facility]. Home services will be provided by [facility]. Reena will transport patient home when medically stable. Continue to monitor for d/c needs.
--- NOTE | 2020-11-10 14:29 | MHC.STROKE ---
11/09/20 1606 WALK-IN WITH DAUGHTER. C/O LA, LL WEAKNESS THAT STARTED 11/08/2020 AT 1400. NIHSS = 2, OUT OF THE WINDOW FOR TPA, CT/CTAH/N DONE, NO BLEED NO LVO. ADMITTED TO INPATIENT, STROKE ORDER SET USED. PASSED SWALLOW SCREEN PRIOR TO PO. PT/OT RECOMMENDING STR OR HOME WITH REHAB SERVICES. CASE MANAGEMENT NOTE REFERS TO THEIR PREFERENCE TO GO HOME WITH SERICES. DR BAZAN SAW PATIENT, SEE HIS NOTE, REOMMENDING BP CONTROL WITH SBP AROUND 130'S. ON ASPIRIN/STATIN. I MET WITH THE PATIENT TODAY WITH THE TRAINING AND DEVELOPMENT SPECIALIST, I REVIEWED THE MRI SCAN AND LOCATION OF THE STROKE WITH CORRELATING SYMPTOMS. I REVIEWED HIS RISK FACTORS, HE I STRESSED MEDICATION COMPLIANCE. HIS LDL IS 63. HE IS VERY [place] AND RE-INFKORCEMENT WILL BE NEEDED. ALL STROKE MEASURES MET. I WILL CONTINUE TO FOLLOW.
[2020-11-10] MEDS: Nicotine 21 MG PATCH.TD24 TRANSDERMA (16:39)
--- NOTE | 2020-11-10 18:53 | PC.NURSE ---
PATIENT VOID 550 CC URINE ,PATIENT ATE 100 % OF HIS MEALS ,PATIENT DRANK 600 CC ,PATIENT IS WATCHING TELEVISION
--- NOTE | 2020-11-10 19:06 | PC.NURSE ---
attempt #1 to give report. Lucrecia SHULTZ to take
[2020-11-11 03:40] VITALS: BP 167/86; PULSE 65; RESP 18; TEMP 36.7; O2SAT 92
[2020-11-11] MEDS: Omeprazole 20 MG CAPSULE.DR PO (06:21)
[2020-11-11 06:56] VITALS: BP 147/70; PULSE 68; RESP 20; TEMP 36.6; O2SAT 97
[2020-11-11] MEDS: Enoxaparin Sodium 40 MG/0.4 ML SYRINGE SUBCUT (07:50)
[2020-11-11] MEDS: Fenofibrate 54 MG TABLET PO (07:51)
[2020-11-11] MEDS: Aspirin Enteric Coated 81 MG TABLET.DR PO (07:51)
[2020-11-11] MEDS: Nicotine 21 MG PATCH.TD24 TRANSDERMA (07:52)
--- NOTE | 2020-11-11 09:38 | PM.DS ---
DS: Providers Provider Date of Service: 11/11/20 Date of admission: 11/09/20 23:50 Primary care physician: Unknown Physician Consults: 11/09/20 23:50 Consult to Neurology Routine Consulting Provider: [facility] Reason for consultation: stroke Has provider been notified: Yes DS: Diagnosis Discharge Diagnosis (1) Acute CVA (cerebrovascular accident): Status: Acute (2) Dyslipidemia: Status: Acute (3) Hearing loss: Status: Acute (4) Essential hypertension: Status: Acute (5) CAD (coronary artery disease): Status: Acute DS: Medications Discharge Medications Home Medications: Home Medications Medication Instructions Recorded Confirmed aspirin 1 tab PO DAILY 11/09/20 11/09/20 metoprolol tartrate 1 tab PO DAILY 11/09/20 11/09/20 omeprazole 1 cap PO QAM 11/09/20 11/09/20 rosuvastatin 1 tab PO DAILY 11/09/20 11/09/20 trazodone 2 tab PO BEDTIME PRN 11/09/20 11/09/20 DS: Summary Hospital Course Hospital Course: Chief Complaint: weakness This is a [place] Zealander-speaking only 74-year-old male with past medical history of CAD, dyslipidemia, HTN, GERD, hearing loss, insomnia, pernicious anemia who presents to the hospital with complaints of left-sided weakness. Patient is very hard of hearing and even with the help of supervisor orchard was difficulty to get much history from him due to the difficulty hearing. Patient reports that around 2:00 p.m. on Monday he started developing weakness as well as pain in his left upper and lower extremity. The weakness worsened and he also had worsening pain and therefore decided to come to the hospital today. He denies any slurred speech, no change in vision, no headache, denies any facial droop, he reports that he has difficulty walking due to the weakness in his left leg. He denies any chest pain, no abdominal pain, nausea or vomiting, no diarrhea or constipation, no urinary symptoms and no lower extremity edema. Denies any shortness of breath cough or sputum production. No fever or chills. On arrival to the ED patient hemodynamically stable with No significant abnormal vitals Labs are significant for WBC count of 6.6, hemoglobin of 13.5, otherwise unremarkable Head and neck CT angiogram shows of acute intracranial hemorrhage or at about a story Sallie infarction. Mild underlying microangiopathy and generalized cerebral volume loss. CTA of the head and neck without proximal occlusion or flow-limiting stenosis. Hospital course: Patient was admitted for further workup for possible stroke and indeed MRI of the head showed Small vessel disease with a lacunar stroke right lateral thalamus and posture Stroke. patient wa seen by Neurologist (Dr. Underwood) is Expected to completely recovery in a few weeks. He has no evidence of any major vascular occlusive disease in the neck or intracranial circulation. The recommendation would be to control his blood pressure and continue aspirin 81 mg. PT, OT recommend going home with service. At this time, patient has minimal weakness in the left hand. His home meds will include ASA, Lipitor and Fenofibrate for Hyperlipidememia and Hypertriglyceridemai and his HTN meds and should follow up with PCP within a week. Smoking Cessation is asvised and t Final Diagnosis: Acute stroke Hypelipidemia Hypertriglyceridemia Tobacco use desorder HTN h/o CAD Time Spent with Patient Time attestation: Total time spent providing and/or coordinating discharge services: Discharge coordination time: Greater than 30 minutes Quality: Stroke Does the patient have a stroke diagnosis?: Yes Reason for No Anti-thrombotic at DC: N/A - Med Ordered Reason for No Anticoagulant at DC: Drug treatment not indicated Reason Not Initiating IV-Tpa: Drug treatment not indicated Reason for No Anti-thrombotic by Day Two: N/A - Med Ordered Reason for No Statin at DC: N/A - Med Ordered Physical Exam Vital Signs: Vital Signs: Last Vital Signs Temp 98 F 11/11/20 06:56 Pulse 68 11/11/20 06:56 Resp 20 11/11/20 06:56 BP 147/70 H 11/11/20 06:56 Pulse Ox 97 11/11/20 06:56 Body Mass Index 30.5 Const: General: cooperative, healthy appearing, comfortable, no acute distress, well developed, alert and awake Nutritional Appearance: well nourished Orientation/consciousness: oriented to person, oriented to place, oriented to time and patient oriented x3 Limitations: no limitations Eyes: Pupils: Equal, round and reactive pupils present EOM: EOMs intact bilaterally Direct Ophthalmoscopy: normal light reflex Neck: Neck: Yes no meningeal signs Resp: Effort & Inspection: normal respiratory effort and able to speak in complete sentences Auscultation: clear to auscultation bilaterally, no crackles and no rales Cardio: Palpation: normal PMI Rate: regular rate Rhythm: regular rhythm Heart sounds: S1 normal heart sound present and S2 normal heart sound present Bruits: Abdominal aortic bruit present Peripheral pulses: Peripheral pulses 2+ throughout GI: Palpation (GI): Abdominal aortic bruit present, Soft to palpation and nontender Percussion: Yes normal to percussion Auscultation: normal bowel sounds Skin: General skin exam: no rashes or lesions noted Neuro: Other: Minimal weakness of left deltoid 5 minus/5. Left hip flexor and dorsiflexor weakness, 4+/5, with normal recent reflexes and flexor plantar responses General: oriented to person, oriented to place, oriented to time, patient oriented x3, gait normal, tone normal, moves all extremities, Normal light touch and pain sensation, no meningeal signs, no focal motor deficits, CN's II-XI intact bilaterally (Severe hearing loss bilaterally), normal sensation to monofilament and deep tendon reflexes 2+ bilaterally Cranial nerves: Yes CN's II-XII intact bilaterally, Yes Equal, round and reactive pupils present, Yes Bilaterally intact EOM present, Yes Nystagmus not present, Yes Normal facial strength present, Yes Midline tongue present, Yes Normal gag reflex present, Yes Symmetric palate elevation present, Yes Normal hearing present and Yes Ability to bilaterally rotate head present Cognition (Neuro): normal cognition Speech: No Abnormal speech present and Other speech findings present (Neuro) Gait exam (Neuro): Staggering gait present Motor exam (neuro): 5/5 motor strength present throughout (Except for subtle weakness in the left deltoid. Hip flexor and dorsiflexor), Pronator motor function not present, no tremor noted, no asterixis, Motor fasciculations not present, Normal motor muscle tone present throughout, Motor abnormalities not present and Other motor observations present (+4/5 left upper extremity 4 /5 left lower extremity 5/5 right-sided) Sensory Exam: Bilaterally intact graphesthesia Deep tendon reflexes (DTR's): Right triceps reflex intensity grade: 2+, Left triceps reflex intensity grade: 2+, Rt Biceps (C5, C6): 2+, Left biceps reflex intensity grade: 2+, Right brachioradialis reflex intensity grade: 2+, Left brachioradialis reflex intensity grade: 2+, Right patellar reflex intensity grade: 2+, Left patellar reflex intensity grade: 2+, Right ankle reflex intensity grade: 2+ and Left ankle reflex intensity grade: 2+ Plantar Reflex Responses: downgoing: right, left and bilateral Coordination: [id number] test normal, kilo-jd-[id number] test normal and Romberg test negative Pupils: Normal pupillary reactivity/response: bilateral Extrem: General: Yes normal to inspection, Yes normal exam except as noted and Yes no pedal edema Psych: Appearance: grossly normal Affect: normal affect Discharge Plan Discharge Anticipated Discharge Date/Time: 11/11/20 09:47 Patient Disposition: Home Health Service Discharge Diagnosis: Acute stroke Referrals: Physician,Unknown [Primary Care Provider] - 1 Week Discharge Medications: New atorvastatin 80 mg Tablet 80 mg PO DAILY Qty: 30 RF: 0 fenofibrate 54 mg Tablet 54 mg PO DAILY Qty: 30 RF: 0 Continued aspirin 81 mg tablet,delayed release (DR/EC) 1 tab PO DAILY RF: 0 trazodone 100 mg tablet 2 tab PO BEDTIME PRN (Reason: Sleep) RF: 0 omeprazole 20 mg capsule,delayed release(DR/EC) 1 cap PO QAM RF: 0 metoprolol tartrate 25 mg tablet 1 tab PO DAILY RF: 0 Discontinued rosuvastatin 40 mg tablet 1 tab PO DAILY RF: 0 Discharge Orders: Discharge Order (Routine); Ordered 11/11/20 Ordered By: Titus Garber Diet: advance to usual diet and low salt diet Activity on Discharge: As tolerated Stand Alone Forms: Patient Portal Discharge page Care Plan Goals: Full recovery from stroke, controll of blood pressure and cholesterol Health Concerns: smoking, Stroke, Plan of Treatment: Take all your medications as tolerated and follow up with your Doctor in a [facility] for appointment Participate in PT as ordered Assessment: SEE above
[2020-11-11 09:47] VITALS: BP 147/70; PULSE 68; O2SAT 97
--- NOTE | 2020-11-11 09:51 | W.MHC.F2F ---
Service Date Service Date: 11/11/20 Encounter Date of encounter: 11/11/20 Reasons for Services Reason for jail: CV/CP assess and/or care, neurological assessment and medication treatment Reason for physical therapy: home safety and mobility, therapeutic exercises, gait/transfer training and energy conservation Reason for occupational therapy: home safety and mobility, therapeutic exercises, gait/transfer training, assess need for DME and energy conservation Homebound: Leaving the home is medically contraindicated at this time without the asist of a device and/or another person due th the listed conditions above and below. Homebound supporting statement: Homebound due to acute stroke with left sided weakness and therefore needing the assistance of another person Certification: Based on the above findings, I certify that this patient is confined to the home and needs intermittent jail care, physical therapy and/or speech therapy, or continues to need occupational therapy. The patient is under my care, and I have initiated the establishment of the plan of care. The patient will be followed by a physician who will periodically review the plan of care.
--- NOTE | 2020-11-11 10:05 | MHC.CM.PN ---
sylvia at [facility] [phone] was notified of pts dc she confirmed thast she will be arranging sn,ot and pt services for pt
== END 2020-11-11 11:33 | disposition home health service (06) | DRG 66 ==
LOC: HO.ED 21:06 → HO.EDOVER 11-10 00:27 → HO.IMC 11-10 19:34
PROVIDERS: Admitting Provider Internal Medicine; Emergency Provider Internal Medicine; Visit Provider Internal Medicine
DX: I63.81 Other cerebral infarction due to occlusion or stenosis of small artery (principal); K21.9 Gastro-esophageal reflux disease without esophagitis; I25.10 Atherosclerotic heart disease of native coronary artery without angina pectoris; E78.5 Hyperlipidemia, unspecified; R29.702 NIHSS score 2; G47.00 Insomnia, unspecified; H91.90 Unspecified hearing loss, unspecified ear; I25.2 Old myocardial infarction; F17.210 Nicotine dependence, cigarettes, uncomplicated; Z98.61 Coronary angioplasty status; Z20.822 Contact with and (suspected) exposure to COVID-19; Z71.6 Tobacco abuse counseling; Z88.0 Allergy status to penicillin; Z79.82 Long term (current) use of aspirin; Z79.899 Other long term (current) drug therapy
CPT/HCPCS: 36415; 70496; 70498; 70551; 80048; 80061; 82947; 84484; 85025; 85610; 85730; 87635; 93005; 93306; 97112; 97116; 97162; 97166; 97535; 99285; J1650; J2405; Q9967

== ENCOUNTER → 2020-11-23 10:13 | Outpatient (BNVA) | payer MEDICARE, SELFPAY | PROVIDERS: PCP Internal Medicine; Referring Provider Internal Medicine; Visit Provider Internal Medicine Cardiovascular Disease | DX: I25.10 Atherosclerotic heart disease of native coronary artery without angina pectoris (principal); E78.5 Hyperlipidemia, unspecified | CPT/HCPCS: 99212 ==

== ENCOUNTER 2020-11-27 09:10 | Outpatient (REF) | payer MEDICARE, SELFPAY ==
--- NOTE | 2020-11-27 12:31 | MHC.AU.HFU ---
Hearing Instrument Follow-Up- Binaural Date of Visit: 11/27/20 Right Ear: Roof Promenade Tile Setter: Kiran Model: 3 SERIES I30 BTE Serial Number: [id number] Repair Warranty: ORIGINAL EXP 11/29/15 Loss and Damage Warranty: 11/29/15 Battery Size: 13 Color: Silver Tubing: Tube lock Type of Mold: Microsonic skeleton mold Dispensed By: [facility] Date of Fittin09/26/2013 Left Ear: Roof Promenade Tile Setter: Kiran Model: 3 SERIES I30 BTE Serial Number: [id number] Repair Warranty: 11/29/2015 Loss and Damage Warranty: 11/29/15 Battery Size: 13 Color: SILVER Tubing: Tube lock Type of Mold: Microsonic skeleton mold Dispensed By: [facility] Date of Fittin09/26/2013 Follow-Up Summary: Patient dropped off left hearing aid stating that it is not working and he can't hear anything out of it. Confirmed that there is no amplification via listening, however aid does turn on and can hear the start up tone. Cleaned aid, replaced tubing, cleaned earmold, vacuumed microphones and battery compartment, placed in hearing aid dryer. Aid still not amplifying. Need to sent aid to [facility] for repair. Requesting PA for out of warranty repair from [facility]. Once approved, will send aid out. Called patient's daughter and advised that he can come in to program his right aid (which he hasn't worn recently due to discomfort in the canal) for the left ear and attach his left earmold. He will schedule another appointment to come and switch the right aid over for the left for the time being. Recommendations: Recommendations: Patient will be contacted when materials have arrived. A prior authorization will be submitted to patient's insurance. Diagnosis Code(s): Primary Diagnosis: H90.6 Mixed Hearing Loss, Bilateral Signature: Provider: Ilene Luciano, CCC-A
== END 2020-11-27 09:11 | disposition home or self-care (01) ==
LOC: HO.HAP 09:10
PROVIDERS: Visit Provider Internal Medicine
DX: Z46.1 Encounter for fitting and adjustment of hearing aid (principal); H90.6 Mixed conductive and sensorineural hearing loss, bilateral
CPT/HCPCS: 92592

== ENCOUNTER 2021-03-24 11:24 | Outpatient (REF) | payer MEDICARE, SELFPAY | END 2021-03-24 11:25 | disposition home or self-care (01) | LOC: HO.HAP 11:24 | PROVIDERS: Visit Provider Internal Medicine | DX: Z46.1 Encounter for fitting and adjustment of hearing aid (principal); H90.6 Mixed conductive and sensorineural hearing loss, bilateral | CPT/HCPCS: 92592 ==

== ENCOUNTER 2021-03-29 11:55 | Outpatient (REF) | payer MEDICARE, SELFPAY | END 2021-03-29 11:56 | disposition home or self-care (01) | LOC: HO.HAP 11:55 | PROVIDERS: Visit Provider Internal Medicine | DX: Z13.89 Encounter for screening for other disorder (principal) ==

== ENCOUNTER 2021-09-04 08:31 | Outpatient (REF) | payer OTHER, SELFPAY ==
[2021-09-04 08:49] LABS: MANUAL DIFF FLAG NO
[2021-09-04 09:22] LABS: Basophils Absolute Auto 0.1 X10*3/uL (0.0-0.2); Basophils Percent Auto 1.6 % (0-2); Eosinophils Absolute Auto 0.3 X10*3/uL (0.0-0.4); Eosinophils Percent Auto 6.1 % (0-4); Hematocrit 40.7 % (42.0-52.0); Hemoglobin 13.5 g/dl (14.0-18.0); Imm Gran Abs Auto 0.01 X10*3/uL (0.00-0.03); Imm Gran Pct Auto 0.2 % (0.0-0.4); Lymphocytes Absolute Auto 1.9 X10*3/uL (1.2-4.9); Lymphocytes Percent Auto 44.7 % (20-40); Mean Corpuscular HGB Conc 33.2 g/dl (31.0-36.0); Mean Corpuscular Hemoglobin 32.6 pg (27.0-33.0); Mean Corpuscular Volume 98.3 fL (80.0-98.0); Mean Platelet Volume 11.2 fL (9.4-12.4); Monocytes Absolute Auto 0.4 X10*3/uL (0.1-1.2); Monocytes Percent Auto 8.7 % (2-11); Neutrophils Absolute Auto 1.6 x10*3/uL (2.0-8.3); Neutrophils Percent Auto 38.7 % (45-73); Platelet Count 221 X10*3/uL (160-400); Red Blood Count 4.14 X10*6/uL (4.60-5.80); Red Cell Distribution Width 12.3 % (11.0-16.0); White Blood Count 4.3 X10*3/uL (4.8-10.8)
[2021-09-04 09:50] LABS: Alanine Aminotransferase 16 U/L (0-40); Albumin Level 3.9 g/dL (3.5-5.0); Alkaline Phosphatase 63 U/L (39-117); Anion Gap 12 (12-20); Aspartate Amino Transferase 25 U/L (5-37); Bilirubin Total 0.4 mg/dL (0.0-1.0); Blood Urea Nitrogen 10 mg/dL (9-16); Calcium 8.9 mg/dL (8.4-10.2); Carbon Dioxide 24 mmol/L (22-29); Chloride 107 mmol/L (96-108); Cholesterol 109 mg/dL; Estimated Glomerular Filt Rate > 60; Glucose Fasting 104 mg/dL (60-99); HDL Cholesterol 30 mg/dL; LDL Cholesterol Calculated 46 mg/dl; Potassium 4.4 mmol/L (3.3-5.1); Sodium 139 mmol/L (135-145); Total Protein 7.9 g/dL (6.5-8.0); Triglycerides 168 mg/dL
[2021-09-04 10:22] LABS: Folate 4.7 ng/mL (> or = 4.0); Vitamin B12 286 pg/mL (200-900)
[2021-09-09 12:41] LABS: Vitamin D 25-OH, D2 <4 ng/mL; Vitamin D 25-OH, D3 23 ng/mL; Vitamin D 25-OH, Total 23 ng/mL (30-100)
== END 2021-09-04 08:32 | disposition home or self-care (01) ==
LOC: HO.LAB 08:31
PROVIDERS: PCP Internal Medicine; Visit Provider Internal Medicine
DX: I25.10 Atherosclerotic heart disease of native coronary artery without angina pectoris (principal); D64.9 Anemia, unspecified; K21.9 Gastro-esophageal reflux disease without esophagitis; E78.5 Hyperlipidemia, unspecified; D51.0 Vitamin B12 deficiency anemia due to intrinsic factor deficiency; E55.9 Vitamin D deficiency, unspecified
CPT/HCPCS: 36415; 80053; 80061; 82306; 82607; 82746; 85025

== ENCOUNTER 2022-02-14 10:08 | Outpatient (REF) | payer OTHER, SELFPAY ==
[2022-02-14 10:32] LABS: MANUAL DIFF FLAG NO
[2022-02-14 11:42] LABS: Basophils Absolute Auto 0.1 X10*3/uL (0.0-0.2); Basophils Percent Auto 1.3 % (0-2); Eosinophils Absolute Auto 0.4 X10*3/uL (0.0-0.4); Eosinophils Percent Auto 8.4 % (0-4); Hematocrit 42.3 % (42.0-52.0); Hemoglobin 14.1 g/dl (14.0-18.0); Imm Gran Abs Auto 0.01 X10*3/uL (0.00-0.03); Imm Gran Pct Auto 0.2 % (0.0-0.4); Lymphocytes Absolute Auto 1.9 X10*3/uL (1.2-4.9); Lymphocytes Percent Auto 40.3 % (20-40); Mean Corpuscular HGB Conc 33.3 g/dl (31.0-36.0); Mean Corpuscular Volume 96.1 fL (80.0-98.0); Mean Platelet Volume 11.2 fL (9.4-12.4); Monocytes Absolute Auto 0.5 X10*3/uL (0.1-1.2); Monocytes Percent Auto 9.6 % (2-11); Neutrophils Absolute Auto 1.9 x10*3/uL (2.0-8.3); Neutrophils Percent Auto 40.2 % (45-73); Platelet Count 229 X10*3/uL (160-400); Red Cell Distribution Width 12.3 % (11.0-16.0); White Blood Count 4.7 X10*3/uL (4.8-10.8)
== END 2022-02-14 10:09 | disposition home or self-care (01) ==
LOC: HO.LAB 10:08
PROVIDERS: PCP Internal Medicine; Visit Provider Internal Medicine
DX: D64.9 Anemia, unspecified (principal); E55.9 Vitamin D deficiency, unspecified
CPT/HCPCS: 36415; 82306; 85025

== ENCOUNTER 2022-05-18 08:26 | Outpatient (REF) | payer OTHER, SELFPAY ==
[2022-05-18 08:41] LABS: MANUAL DIFF FLAG NO
--- NOTE | 2022-05-18 08:45 | ECG_ITS ---
Test Reason : pre op Blood Pressure : / mmHG Vent. Rate : 056 BPM Atrial Rate : 056 BPM P-R Int : 182 ms QRS Dur : 084 ms QT Int : 404 ms P-R-T Axes : 047 033 065 degrees QTc Int : 389 ms Sinus bradycardia with sinus arrhythmia Otherwise normal ECG When compared with ECG of 10-NOV-2020 04:41, QT has shortened Referred By: Hawa Singh Electronically Signed By:BRYANT VILLALOBOS MD
[2022-05-18 08:56] LABS: Basophils Absolute Auto 0.1 X10*3/uL (0.0-0.2); Basophils Percent Auto 1.2 % (0-2); Eosinophils Absolute Auto 0.3 X10*3/uL (0.0-0.4); Eosinophils Percent Auto 5.8 % (0-4); Hemoglobin 14.1 g/dl (14.0-18.0); Imm Gran Abs Auto 0.01 X10*3/uL (0.00-0.03); Imm Gran Pct Auto 0.2 % (0.0-0.4); Lymphocytes Percent Auto 38.3 % (20-40); Mean Corpuscular HGB Conc 33.6 g/dl (31.0-36.0); Mean Corpuscular Hemoglobin 32.3 pg (27.0-33.0); Mean Corpuscular Volume 96.3 fL (80.0-98.0); Mean Platelet Volume 10.9 fL (9.4-12.4); Monocytes Absolute Auto 0.5 X10*3/uL (0.1-1.2); Monocytes Percent Auto 8.9 % (2-11); Neutrophils Absolute Auto 2.4 x10*3/uL (2.0-8.3); Neutrophils Percent Auto 45.6 % (45-73); Platelet Count 212 X10*3/uL (160-400); Red Blood Count 4.36 X10*6/uL (4.60-5.80); Red Cell Distribution Width 12.8 % (11.0-16.0); White Blood Count 5.2 X10*3/uL (4.8-10.8)
[2022-05-18 09:31] LABS: Alanine Aminotransferase 23 U/L (0-40); Alkaline Phosphatase 58 U/L (39-117); Anion Gap 10 (12-20); Aspartate Amino Transferase 28 U/L (5-37); Bilirubin Total 0.8 mg/dL (0.0-1.0); Blood Urea Nitrogen 13 mg/dL (9-16); Carbon Dioxide 28 mmol/L (22-29); Chloride 105 mmol/L (96-108); Cholesterol 108 mg/dL; Estimated Glomerular Filt Rate > 60; Glucose Fasting 105 mg/dL (60-99); HDL Cholesterol 30 mg/dL; LDL Cholesterol Calculated 48 mg/dl; Potassium 3.8 mmol/L (3.3-5.1); Sodium 139 mmol/L (135-145); Total Protein 7.3 g/dL (6.5-8.0); Triglycerides 150 mg/dL
[2022-05-18 09:48] LABS: Vitamin D 25-OH Total 48.9 ng/mL (>30)
[2022-05-18 09:53] LABS: Folate 4.2 ng/mL (> or = 4.0); Vitamin B12 470 pg/mL (200-900)
== END 2022-05-18 08:27 | disposition home or self-care (01) ==
LOC: HO.LAB 08:26
PROVIDERS: PCP Internal Medicine; Visit Provider Internal Medicine
DX: Z01.818 Encounter for other preprocedural examination (principal); E53.8 Deficiency of other specified B group vitamins; D64.9 Anemia, unspecified; E78.5 Hyperlipidemia, unspecified; E55.9 Vitamin D deficiency, unspecified
CPT/HCPCS: 36415; 80053; 80061; 82306; 82607; 82746; 85025; 93005

== ENCOUNTER 2022-05-23 08:34 | Day surgery (SDC) | payer OTHER, SELFPAY ==
--- NOTE | 2022-05-20 10:25 | MHC.SHP ---
Pre-Procedural Eval Section A Date of Service: 05/20/22 The patient is an INPATIENT: No Changes since office visit: No Cold of Flu in the past 2 weeks, No New Medical Problems, No Changes in Medication and No Patient answered all questions The History & Physical has been completed within 30 days and I have reviewed it.: Yes Section B Chief Complaint: Age-related nuclear cataract, left eye Allergies: Allergies Allergy/AdvReac Type Severity Reaction Status Date / Time Penicillins [PENICILLINS] Allergy Intermediate Rash Verified 05/16/22 13:59 atorvastatin AdvReac Intermediate elevated Verified 05/16/22 13:59 liver enzymes quetiapine [From SEROQUEL] AdvReac Intermediate ERRATIC Verified 05/16/22 13:59 BEHAVIOR, NIGHTMARES,DIZZINESS Plan Diagnosis/Plan: Unchanged I have reviewed the history and physical and performed a pertinent physical examination on my patient. No changes have occurred unless specified. Time Spent With Patient Time: Total time managing care of this patient today ____ minutes.
[2022-05-23] MEDS: Tetracaine HCl/PF 0.5% Oph Sol 4 ML DROPS 1 DROP EYE-LEFT (09:20)
--- NOTE | 2022-05-23 09:23 | P.CONAN_ITS ---
[facility] Active Problems Active Problems: All Active Problems (Updated 05/16/22 @ 14:05 by Hawa Singh MD) Pre-op evaluation (Acute) Hypovitaminosis D (Acute) Mixed hyperlipidemia (Acute) Right-sided lacunar infarction (Acute) Obesity (BMI 30.0-34.9) (Acute) Need for dental care (Acute) Pre-operative clearance (Acute) CAD (coronary artery disease) (Acute) Left shoulder pain (Acute) Dyslipidemia (Acute) GERD (gastroesophageal reflux disease) (Acute) Insomnia (Acute) Pernicious anemia (Acute) Past Medical History Medical History CAD (coronary artery disease) Dyslipidemia Essential hypertension GERD (gastroesophageal reflux disease) Hearing loss Hypovitaminosis D Insomnia Left shoulder pain Mixed hyperlipidemia Myocardial infarction Pernicious anemia Right-sided lacunar infarction Family History Family History Father No problems noted. Mother No problems noted. Surgical History Surgical History Hx of esophagogastroduodenoscopy Stented coronary artery History of Problems with Anesthesia: No Social History Social History Household Members: None Housing: Apartment Do you presently have visiting nurse or other home services: No Alcohol intake: never Patient Tobacco Use Status: Current everyday Tobacco user Tobacco use type: Cigarette Cigarettes Per Day: 2 e-Cigarette/Vaping Use: Never Used Second Hand Smoke Exposure: No Use of substances other than those prescribed or required for medical reasons: No Are you DNR?: No Advance Directives: No Advance Directives Information Provided: Yes service: No Current occupational status: retired Cognitive needs: No Hearing needs: Yes Vision needs: No Meds Allergies Allergy/AdvReac Type Severity Reaction Status Date / Time Penicillins [PENICILLINS] Allergy Intermediate Rash Verified 05/23/22 09:32 atorvastatin AdvReac Intermediate elevated Verified 05/23/22 09:32 liver enzymes quetiapine [From SEROQUEL] AdvReac Intermediate ERRATIC Verified 05/23/22 09:32 BEHAVIOR, NIGHTMARES,DIZZINESS Active Medications: Current Medications Cyclopentolate HCl (Cyclopentolate 1 % Ophth Danna 2 Ml Drpbtl) 1 drop EYE-LEFT Q5M [facility] Stop: 05/23/22 09:26 Lactated Ringer's (Lr) 500 mls @ 20 mls/hr IVCONT .Q24H [facility] Ketorolac Tromethamine (Ketorolac Tromethamine 0.5% Op 5 Ml Drops) 1 drop EYE- LEFT Q5M [facility] Stop: 05/23/22 09:26 Moxifloxacin HCl (Moxifloxacin Hcl 0.5 % Oph Danna 3 Ml Drpbtl) 1 drop EYE-LEFT POSTOP ONE Stop: 05/23/22 09:04 Phenylephrine HCl (Phenylephrine Hcl 2.5% Oph Danna 2 Ml Bottle) 1 drop EYE-LEFT Q5M [facility] Stop: 05/23/22 09:26 Povidone Iodine (Povidone Iodine 5 % Ophth Soln 30 Ml Bottle) 1 appl EYE-LEFT PREOP PRN PRN Reason: Pre-Op Surgical Implant Prophy Tetracaine HCl (Tetracaine Hcl/Pf 0.5% Oph Danna 4 Ml Drops) 1 drop EYE-LEFT PREOP ONE Stop: 05/23/22 09:04 Last Admin: 05/23/22 09:20 Dose: 1 drop Triamcinolone Acetonide (Triamcinolone Acetonide 40 Mg/Ml Vial) 40 mg IM POSTOP ONE Stop: 05/23/22 09:04 Tropicamide (Tropicamide 1 % Ophth Danna 3 Ml Btl) 1 drop EYE-LEFT Q5M [facility] Stop: 05/23/22 09:26 Exam Exam Date and Time: May 23, 2022922 Height,Weight and Vital Signs: Height 5 ft 7 in Weight 87.09 kg Airway Mallampati Class: III (Edentulous) TM Dist: >3cm Neck ROM: Full Denture: Upper and Lower Loose/Missing/Broken Teeth: Yes, Upper and Lower Heart: RRR Lungs: CTA Assessment and Plan Assessment Anesthesia Assessment: Anesthesia Plan Discussed and Chart Reviewed Final Anesthetic Review History of Problems with Anesthesia: No NPO: Yes ASA Class: III Final Preanesthetic Review: Meds/Allgs Chart Reviewed, Consent Obtained/Reviewed and Anes Risks/Benef Reviewed Patient Risk: Intermediate Procedure Risk: Low Anesthetic Plan Anesthetic Plan: MAC: Disposition: Standard PACU
[2022-05-23] MEDS: Cyclopentolate 1 % Ophth Sol 2 ML DRPBTL 1 DROP EYE-LEFT ×3 (09:24→09:44)
[2022-05-23 09:25] VITALS: BP 150/80; PULSE 57; RESP 16; TEMP 36.5; O2SAT 96
[2022-05-23] MEDS: Tropicamide 1 % Ophth Sol 3 ML BTL 1 DROP EYE-LEFT ×3 (09:28→09:45)
[2022-05-23] MEDS: Ketorolac Tromethamine 0.5% Op 5 ML DROPS 1 DROP EYE-LEFT ×3 (09:32→09:46)
[2022-05-23] MEDS: Phenylephrine HCL 2.5% Oph SoL 2 ML BOTTLE 1 DROP EYE-LEFT ×3 (09:34→09:47)
--- NOTE | 2022-05-23 10:28 | HO.PNOPHT ---
Ophthalmology Procedure Procedure Date of Service: 05/23/22 Ophthalmology Viscoelastic: Healfelicia Ayalat Dual Pack Pro Ophthalmology Lenses: TECEDUARDO [id number] (23.5) Procedure Notes: PREOPERATIVE DIAGNOSIS: Decreased visual acuity left eye secondary to cataract POSTOPERATIVE DIAGNOSIS: Same PROCEDURE: Left cataract extraction with intraocular lens insertion SURGEON: Omid Amos M.D. ANESTHESIA: Topical/MAC ESTIMATED BLOOD LOSS: None COMPLICATIONS: None After obtaining informed consent, the patient was brought to the operation room suite and placed in the supine position. After adequate sedation per anesthesia, topical drops of Tetracaine were given to the left eye. The eye was then prepped and draped in the usual sterile fashion. The operating room microscope was then positioned over the operative eye and a lid speculum placed. A paracentesis was created. Viscoelastic was then instilled into the anterior chamber. A three plane incision was then created temporally, utilizing a 2.85 mm keratome. Capsulotomy forceps were then utilized to create a circular tear capsulotomy. Hydrodissection and hydrodelineation were carried out until adequate mobilization of the nucleus occurred. Phacoemulsification was then utilized to remove the dense central nucleus followed by removal of the cortical material utilizing the automated aspiration irrigation unit. Viscoat elastic was instilled into the posterior capsular bag followed by placement of a posterior chamber intraocular lens without difficulty. The residual Viscoat elastic was then removed utilizing the automated IA machine. The wound was check and found to be watertight. The patient tolerated the procedure well and the lid speculum was removed. Intracameral injection of Vigamox 0.1 mL followed by a subtenon injection of Kenalog-40 0.2 mL were administered. The patient will be seen in the a.m.
[2022-05-23 10:56] VITALS: BP 135/79; PULSE 56; RESP 16; TEMP 36.7; O2SAT 98
== END 2022-05-23 11:10 | disposition home or self-care (01) ==
PROVIDERS: PCP Internal Medicine; Visit Provider Ophthalmology
PROC: (CPT 66985; principal; 2022-05-23 10:50)
DX: H25.12 Age-related nuclear cataract, left eye (principal); H52.4 Presbyopia; I10 Essential (primary) hypertension; I25.10 Atherosclerotic heart disease of native coronary artery without angina pectoris; Z98.61 Coronary angioplasty status; I25.2 Old myocardial infarction; E78.00 Pure hypercholesterolemia, unspecified; Z79.82 Long term (current) use of aspirin; Z79.51 Long term (current) use of inhaled steroids; Z79.899 Other long term (current) drug therapy; Z88.0 Allergy status to penicillin; Z88.8 Allergy status to other drugs, medicaments and biological substances; F17.210 Nicotine dependence, cigarettes, uncomplicated
CPT/HCPCS: 66984; J2250; J3301; V2632

== ENCOUNTER 2022-06-13 07:29 | Day surgery (SDC) | payer OTHER, SELFPAY ==
--- NOTE | 2022-06-08 09:28 | MHC.SHP ---
Pre-Procedural Eval Section A Date of Service: 06/08/22 The patient is an INPATIENT: No Changes since office visit: No Cold of Flu in the past 2 weeks, No New Medical Problems, No Changes in Medication and No Patient answered all questions The History & Physical has been completed within 30 days and I have reviewed it.: Yes Section B Chief Complaint: Age-related nuclear cataract, right eye Allergies: Allergies Allergy/AdvReac Type Severity Reaction Status Date / Time Penicillins [PENICILLINS] Allergy Intermediate Rash Verified 05/23/22 09:32 atorvastatin AdvReac Intermediate elevated Verified 05/23/22 09:32 liver enzymes quetiapine [From SEROQUEL] AdvReac Intermediate ERRATIC Verified 05/23/22 09:32 BEHAVIOR, NIGHTMARES,DIZZINESS Plan Diagnosis/Plan: Unchanged I have reviewed the history and physical and performed a pertinent physical examination on my patient. No changes have occurred unless specified. Time Spent With Patient Time: Total time managing care of this patient today ____ minutes.
[2022-06-13 07:53] VITALS: BP 156/76; PULSE 65; RESP 18; TEMP 36.1; O2SAT 96
--- NOTE | 2022-06-13 07:53 | HO.ANESPROP2 ---
[facility] Active Problems Active Problems: All Active Problems (Updated 05/23/22 @ 09:43 by Johanna Wilde RN) Pre-operative clearance (Acute) Need for dental care (Acute) Obesity (BMI 30.0-34.9) (Acute) Pre-op evaluation (Acute) Hypovitaminosis D (Acute) Mixed hyperlipidemia (Acute) Right-sided lacunar infarction (Acute) CAD (coronary artery disease) (Acute) Left shoulder pain (Acute) Dyslipidemia (Acute) GERD (gastroesophageal reflux disease) (Acute) Insomnia (Acute) Pernicious anemia (Acute) Past Medical History Medical History CAD (coronary artery disease) CVA (cerebral vascular accident) Dyslipidemia Essential hypertension GERD (gastroesophageal reflux disease) Hearing loss Hypovitaminosis D Insomnia Left shoulder pain Mixed hyperlipidemia Myocardial infarction Pernicious anemia Right-sided lacunar infarction Family History Family History Father No problems noted. Mother No problems noted. Surgical History Surgical History Hx of esophagogastroduodenoscopy Stented coronary artery History of Problems with Anesthesia: No Social History Social History Household Members: None Housing: Apartment Do you presently have visiting nurse or other home services: No Alcohol intake: never Patient Tobacco Use Status: Current everyday Tobacco user Tobacco use type: Cigarette Cigarettes Per Day: 2 e-Cigarette/Vaping Use: Never Used Second Hand Smoke Exposure: No Advance Directives: No Advance Directives Information Provided: Yes service: No Current occupational status: retired Cognitive needs: No Hearing needs: Yes Vision needs: No Meds Allergies Allergy/AdvReac Type Severity Reaction Status Date / Time Penicillins [PENICILLINS] Allergy Intermediate Rash Verified 05/23/22 09:32 atorvastatin AdvReac Intermediate elevated Verified 05/23/22 09:32 liver enzymes quetiapine [From SEROQUEL] AdvReac Intermediate ERRATIC Verified 05/23/22 09:32 BEHAVIOR, NIGHTMARES,DIZZINESS Active Medications: Current Medications Cyclopentolate HCl (Cyclopentolate 1 % Ophth Danna 2 Ml Drpbtl) 1 drop EYE-RIGHT Q5M [facility] Stop: 06/13/22 07:56 Ketorolac Tromethamine (Ketorolac Tromethamine 0.5% Op 5 Ml Drops) 1 drop EYE-RIGHT Q5M [facility] Stop: 06/13/22 07:56 Phenylephrine HCl (Phenylephrine Hcl 2.5% Oph Danna 2 Ml Bottle) 1 drop EYE-RIGHT Q5M [facility] Stop: 06/13/22 07:56 Povidone Iodine (Povidone Iodine 5 % Ophth Soln 30 Ml Bottle) 1 appl EYE-RIGHT PREOP PRN PRN Reason: Pre-Op Surgical Implant Prophy Tropicamide (Tropicamide 1 % Ophth Danna 3 Ml Btl) 1 drop EYE-RIGHT Q5M [facility] Stop: 06/13/22 07:56 Exam Exam Date and Time: June 13, 2022 0753 Height,Weight and Vital Signs: Height 5 ft 7 in Weight 87.09 kg Airway Mallampati Class: III TM Dist: >3cm Neck ROM: Full Partial: Upper and Lower Loose/Missing/Broken Teeth: Yes, Upper and Lower Heart: RRR Lungs: CTA Assessment and Plan Assessment Anesthesia Assessment: Anesthesia Plan Discussed and Chart Reviewed Final Anesthetic Review History of Problems with Anesthesia: No NPO: Yes ASA Class: III Final Preanesthetic Review: Meds/Allgs Chart Reviewed, Consent Obtained/Reviewed and Anes Risks/Benef Reviewed Patient Risk: Intermediate Procedure Risk: Low Anesthetic Plan Anesthetic Plan: MAC: Disposition: Standard PACU
[2022-06-13] MEDS: Tetracaine HCl/PF 0.5% Oph Sol 4 ML DROPS 1 DROP EYE-RIGHT (08:06)
[2022-06-13] MEDS: Cyclopentolate 1 % Ophth Sol 2 ML DRPBTL 1 DROP EYE-RIGHT ×3 (08:07→08:09)
[2022-06-13] MEDS: Tropicamide 1 % Ophth Sol 3 ML BTL 1 DROP EYE-RIGHT ×3 (08:07→08:09)
[2022-06-13] MEDS: Phenylephrine HCL 2.5% Oph SoL 2 ML BOTTLE 1 DROP EYE-RIGHT ×3 (08:07→08:09)
[2022-06-13] MEDS: Ketorolac Tromethamine 0.5% Op 5 ML DROPS 1 DROP EYE-RIGHT ×3 (08:07→08:09)
[2022-06-13] MEDS: Lactated Ringers 500 ML 20 ML IVCONT (08:52)
--- NOTE | 2022-06-13 09:28 | HO.PNOPHT ---
Ophthalmology Procedure Procedure Date of Service: 06/13/22 Ophthalmology Viscoelastic: Kole Ayalat Dual Pack Pro Ophthalmology Lenses: TECNIS [id number] (22.5) Procedure Notes: PREOPERATIVE DIAGNOSIS: Decreased visual acuity right eye secondary to cataract POSTOPERATIVE DIAGNOSIS: Same PROCEDURE: Right cataract extraction with intraocular lens insertion SURGEON: Omid Amos M.D. ANESTHESIA: Topical ESTIMATED BLOOD LOSS: None COMPLICATIONS: None After obtaining informed consent, the patient was brought to the operating room suite and placed in the supine position. After adequate sedation per anesthesia, topical drops of Tetracaine were given to the right eye. The eye was then prepped and draped in the usual sterile fashion. The operating room microscope was then positioned over the operative eye and a lid speculum placed. A paracentesis was created. Viscoelastic was then instilled into the anterior chamber. A three plane incision was then created temporally, utilizing a 2.85 mm keratome. Capsulotomy forceps were then utilized to create a circular tear capsulotomy. Hydrodissection and hydrodelineation were carried out until adequate mobilization of the nucleus occurred. Phacoemulsification was then utilized to remove the dense central nucleus followed by removal of the cortical material utilizing the automated aspiration irrigation unit. Viscoelastic was instilled into the posterior capsular bag followed by placement of a posterior chamber intraocular lens without difficulty. The residual Viscoelastic was then removed utilizing the automated IA machine. The wound was checked and found to be watertight. The patient tolerated the procedure well and the lid speculum was removed. Intracameral injection of Vigamox 0.1 mL followed by a subtenon injection of Kenalog-40 0.2 mL were administered. The patient will be seen in the a.m.
[2022-06-13 09:55] VITALS: BP 173/69; PULSE 58; RESP 16; TEMP 37; O2SAT 97
== END 2022-06-13 10:10 | disposition home or self-care (01) ==
PROVIDERS: PCP Internal Medicine; Visit Provider Ophthalmology
PROC: (CPT 66985; principal; 2022-06-13 10:00)
DX: H25.11 Age-related nuclear cataract, right eye (principal); H52.4 Presbyopia; H35.363 Drusen (degenerative) of macula, bilateral; I25.10 Atherosclerotic heart disease of native coronary artery without angina pectoris; I25.2 Old myocardial infarction; Z98.61 Coronary angioplasty status; I10 Essential (primary) hypertension; E78.00 Pure hypercholesterolemia, unspecified; Z79.82 Long term (current) use of aspirin; Z79.899 Other long term (current) drug therapy; Z79.51 Long term (current) use of inhaled steroids; Z88.0 Allergy status to penicillin; Z88.8 Allergy status to other drugs, medicaments and biological substances; F17.210 Nicotine dependence, cigarettes, uncomplicated
CPT/HCPCS: 66984; J3301; V2632

== ENCOUNTER → 2022-10-06 12:34 | Outpatient (BNVA) | payer OTHER, SELFPAY | PROVIDERS: PCP Internal Medicine; Referring Provider Internal Medicine; Visit Provider Internal Medicine Cardiovascular Disease | DX: I25.10 Atherosclerotic heart disease of native coronary artery without angina pectoris (principal); I10 Essential (primary) hypertension | CPT/HCPCS: 99212 ==

== ENCOUNTER 2023-01-25 09:47 | Outpatient (AMB) | payer OTHER, SELFPAY ==
--- NOTE | 2023-01-25 09:49 | A.OFFPC_ITS ---
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 Required: No Accompanied by: Daughter Allergies Penicillins [PENICILLINS] Allergy (Intermediate, Verified 01/25/23 10:02) Rash atorvastatin Adverse Reaction (Intermediate, Verified 01/25/23 10:02) elevated liver enzymes quetiapine [From SEROQUEL] Adverse Reaction (Intermediate, Verified 01/25/23 10:02) ERRATIC BEHAVIOR, NIGHTMARES,DIZZINESS Medication List - Last Reconciled 01/25/23 by Hawa Singh MD albuterol sulfate 90 mcg/actuation (Ventolin HFA) 2 puffs inhalation Q6H PRN 30 days aspirin 81 mg PO DAILY 90 days blood pressure monitor (Blood Pressure Kit) As directed cholecalciferol (vitamin D3) 25 mcg PO DAILY 90 days fluticasone propionate 44 mcg/actuation (Flovent HFA) 1 puff inhalation BID 30 days losartan 50 mg PO DAILY 90 days metoprolol succinate ER (Toprol XL) 50 mg PO DAILY omeprazole 20 mg PO QAM 90 days rosuvastatin 40 mg PO DAILY 90 days trazodone 200 mg (2 x 100 mg) PO DAILY PRN 90 days triamcinolone acetonide 0.1% 1 appl topical DAILY 30 days Tobacco use date assessed: 05/16/22 Fall risk assessment: No Falls in past year Last assessed Fall Risk: 01/25/23 Dental Screening Dental Screen Date: 01/25/23 Did you have a dental visit in the last 12 months?: No Did you have a dental problem in the last 6 months where you did not have access to dental care?: No Was dental information given to patient?: Patient has dentist HPI HPI Comments History of Present Illness Details This is a 77-year-old male that comes for his physical exam. Denies any chest pain or shortness breath. He is an occasional smoker and was advised to quit. No need for colonoscopy due to age. Alone in the room. Use hearing aids in left ear. [facility] Medical History (Updated 01/25/23 @ 12:18 by Hawa Singh MD) CVA (cerebral vascular accident) Myocardial infarction Hypovitaminosis D Mixed hyperlipidemia Right-sided lacunar infarction CAD (coronary artery disease) Left shoulder pain Dyslipidemia Hearing loss GERD (gastroesophageal reflux disease) Insomnia Essential hypertension Pernicious anemia Surgical History Hx of esophagogastroduodenoscopy Stented coronary artery Family History Father No problems noted. Mother No problems noted. Social History Household Members: None Housing: Apartment Do you presently have visiting nurse or other home services: No Alcohol intake: never Patient Tobacco Use Status: Current someday Tobacco user Tobacco use type: Cigarette Cigarettes Per Day: 2 e-Cigarette/Vaping Use: Never Used Second Hand Smoke Exposure: No service: No Current occupational status: retired Cognitive needs: No Hearing needs: Yes Vision needs: No Questionnaire Thrive Questionnaire Date Thrive assessed: 05/16/22 OSMAN-7 AMB Questionnaire OSMAN-7 Date OSMAN - 7 assessed: 05/16/22 Source: Developed by Drs. Julio Tovar, Ebonie Gutierrez, Jose Guadalupe Smith and colleagues, with an educational caio from [employer]. Review of Systems Const All systems reviewed & are unremarkable except as noted in HPI and below Eyes Reports no additional complaints, Denies change in vision and Denies other visual disturbances Card Denies chest pain at rest, Denies chest pain with activity, Denies edema, Denies irregular heart rhythm, Denies claudication, Denies dyspnea, Denies dyspnea on exertion, Denies orthopnea, Denies paroxysmal nocturnal dyspnea and Denies slow heart rate Resp Denies cough, Denies dyspnea and Denies dyspnea on exertion GI Denies abdominal pain, Denies change in bowel habits, Denies excessive flatus, Denies nausea and Denies vomiting Denies urinary hesitancy, Denies urinary incontinence and Denies urinary urgency Musc Denies abnormal gait, Denies atrophy, Denies deformity and Denies limited range of motion Skin/Breast Denies bleeding lesions, Denies changing lesions and Denies rash Neuro Denies abnormal gait, Denies behavioral changes and Denies lack of coordination Psych Denies behavioral changes Physical exam (Primary Care) Vital Signs: Last Vital Signs BP 132/70 01/25/23 09:50 BMI result Body Mass Index 29.3 Tobacco/Smoking Status: Tobacco use Status Tobacco use date assessed 05/16/22 01/25/23 09:57 Patient Tobacco Use Status Current someday Tobacco 01/25/23 09:57 Tobacco use type Cigarette 01/25/23 09:57 e-Cigarette/Vaping Use Never Used 01/25/23 09:57 Thrive Assessment: Date of Thrive Assessment Date Thrive assessed 05/16/22 01/25/23 09:57 HENMT Head: Yes normal to inspection, Yes normocephalic and Yes atraumatic Ears: external ears normal Eyes General: appearance normal, both eyes and all related structures Eyelids: Yes eyelids normal Conjunctivae: conjunctivae normal Neck Neck: Yes normal visual inspection and Yes supple Resp Effort & Inspection: normal respiratory effort Auscultation: clear to auscultation bilaterally Cardio Jugular venous distension: no JVD Rate: regular rate Rhythm: regular rhythm Heart sounds: S1 normal heart sound present and S2 normal heart sound present Extrem General: Yes full ROM Assessment and Plan Assessment & Plan (1) Physical exam: Code(s): Z00.00 - Encounter for general adult medical examination without abnormal findings Plan: Repeat in a year Orders: Orders Lipid Panel Today E78.5 - Hyperlipidemia, unspecified Vitamin B12 and Folate Today E53.8 - Deficiency of other specified B group vitamins Comprehensive [place]. Panel Fast Today I63.81 - Other cerebral infarction due to occlusion or stenosis of small artery Vitamin D 25-OH Total Today E55.9 - Vitamin D deficiency, unspecified PSA,Total (Free>4and<10) Today Z12.5 - Encounter for screening for malignant neoplasm of prostate Coding Level of Care Code Est Pt Prev Care >65y(03184) Diagnoses Physical exam Z00.00 Time Spent (min) 31
[2023-01-25 09:50] VITALS: BP 132/70; BMI 29.3
== END 2023-01-25 10:12 | disposition home or self-care (01) ==
PROVIDERS: Visit Provider Internal Medicine
DX: Z00.00 Encounter for general adult medical examination without abnormal findings (principal)
CPT/HCPCS: 99397

== ENCOUNTER 2023-03-29 08:00 | Outpatient (AMB) | payer OTHER, SELFPAY ==
--- NOTE | 2023-03-29 08:09 | AM.OFFWIN_ITS ---
Intake Vital Signs 03/29/23 08:10 Height 5 ft 7 in Weight 189 lb BMI 29.6 BP 130/70 Blood Pressure Location Rt brachial Position Sitting Pulse 60 Pulse Source Pulse Oximeter Temp 97.8 F Temp Source Temporal Artery Scan Pulse Oximetry (%) 96 Intake Visit Reasons: EST/lump on bottom lip,(lobby) Intake Note: pt is here for c.o lump on bottom lip 2x months Patient Tobacco Use Status: Current someday Tobacco user Allergies Penicillins [PENICILLINS] Allergy (Intermediate, Verified 03/29/23 08:10) Rash atorvastatin Adverse Reaction (Intermediate, Verified 03/29/23 08:10) elevated liver enzymes quetiapine [From SEROQUEL] Adverse Reaction (Intermediate, Verified 03/29/23 08:10) ERRATIC BEHAVIOR, NIGHTMARES,DIZZINESS Do you need a note to return to daycare/school/sports/work: Yes HPI HPI Comments History of Present Illness Details Daughter interpreting for him He presents for a lip lesions Started as a wound to his lower lip x 4-5 weeks Unsure if burnt when smoking, burnt on food/ and/or bit it He denies drainage Pain level to lesion is 5/10 Said it has een increasing in size Has been in contact with PCP who recommended vasaline when it was a wound without relief Used Blistex, peroxide. PCP gave antibiotic Bacitracin which he has been using intermittent Picked at it and has some peices that fall off Dermatology appointment is [facility] dermatology; June 02 PENDING SALE TO [facility] Medical History CVA (cerebral vascular accident) Myocardial infarction Hypovitaminosis D Mixed hyperlipidemia Right-sided lacunar infarction CAD (coronary artery disease) Left shoulder pain Dyslipidemia Hearing loss GERD (gastroesophageal reflux disease) Insomnia Essential hypertension Pernicious anemia Surgical History Hx of esophagogastroduodenoscopy Stented coronary artery Family History Father No problems noted. Mother No problems noted. Social History Household Members: None Housing: Apartment Do you presently have visiting nurse or other home services: No Alcohol intake: never Patient Tobacco Use Status: Current someday Tobacco user Tobacco use type: Cigarette Cigarettes Per Day: 2 e-Cigarette/Vaping Use: Never Used Second Hand Smoke Exposure: No service: No Current occupational status: retired Cognitive needs: No Hearing needs: Yes Vision needs: No Review of Systems Const Denies fever(s) and Denies headache(s) ENT Denies dental pain, Denies headache(s), Reports mouth lesions (lower lip lesion), Denies nasal congestion, Denies sore throat, Denies throat swelling and Denies tongue swelling Card Denies dyspnea Resp Denies dyspnea Skin/Breast Reports as per HPI and Reports lesions Neuro Denies headache(s) Aller/Immun Denies throat swelling and Denies tongue swelling Physical Exam Vital Signs: Last Vital Signs Temp 97.8 F 03/29/23 08:10 Pulse 60 03/29/23 08:10 BP 130/70 03/29/23 08:10 Pulse Ox 96 03/29/23 08:10 BMI result Body Mass Index 29.6 General: Non-toxic, NAD. Speaking full sentences. Skin: Warm dry throughout. Eye: EOMI HENT: Lower lip just left of midline pt has firm, non-mobile, raised, slightly tender mass with yellow scaling/dry flakes noted. No fluctuance, drainage. Lesion does not go into inner lower lip. Airway patent. Uvula midline. No pharyngeal erythema or edema. 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 Bilateral canals clear. TM non-erythematous, non-bulging. No TM perforation or hemotympanum noted. Respiratory: No tachypnea MSK: Full ROM extremities. Neurology: A/O. No aphasia or facial droop. Gait without abnormality Psych: Good mood and affect Assessment & Plan Assessment & Plan (1) Lesion of lip: Code(s): K13.0 - Diseases of lips (2) Mass of lip: Code(s): K13.0 - Diseases of lips Plan Patient seen and evaluated. He has some lip edema with erythema and will cover with doxycycline to take with food. Discussed with pt and daughter that I am more concerned with a mass that needs biopsy to rule out a cancer due to smoking hx and sun exposure. They are aware dermatology probably wont biopsy and they will need to call PCP for referral to specialist like maxillofacial surgery for further evaluation. I discussed doxy wont resolve lesion and he needs biopsy. They both expressed verbal understanding and had no additional questions at time of d/c. Medications: New doxycycline hyclate 100 mg PO BID 14 caps 0RF K13.0 - Diseases of lips Coding Level of Care Code Est Pt Level 3 (02327) Diagnoses Lesion of lip K13.0 Mass of lip K13.0
[2023-03-29 08:10] VITALS: BP 130/70; PULSE 60; TEMP 36.6; O2SAT 96; BMI 29.6
== END 2023-03-29 09:22 | disposition home or self-care (01) ==
PROVIDERS: PCP Internal Medicine; Visit Provider Physician Assistant
DX: K13.0 Diseases of lips (principal)
CPT/HCPCS: 99213

== ENCOUNTER 2023-05-06 08:00 | Emergency (ER) | payer OTHER, SELFPAY ==
[2023-05-06 08:17] VITALS: BP 142/62; PULSE 54; RESP 18; TEMP 36.6; O2SAT 95; BMI 24.5
--- NOTE | 2023-05-06 10:01 | ED.GENADULT ---
HPI - General Adult General Chief complaint: Skin/Abscess/Foreign Body Stated complaint: burn on lip 2 mos ago Time Seen by Provider: 05/06/23 08:37 Source: patient, family (patient's daughter) and medical record librarians teacher Mode of arrival: ambulatory Limitations: language barrier History of Present Illness HPI narrative: Patient is a 77 year old assigned male at with a history of CAD, GERD, HTN, and tobacco use presenting to the emergency department today with a large lower lip lesion. Patient states that over the last month he has had a lower left lip lesion growing. Patient states that it started as a burn from smoking his cigarette all the way down to his lip and it continues to grow. Patient states that he saw his PCP who referred him to dermatology. Dermatology referred him to a plastic surgeon who he has an appointment with later this month. Patient states he just wants it to stop growing. Patient denies any dizziness, lightheadedness, abdominal pain, nausea, vomiting, fever, chills, blurry vision, double vision, loss of vision, chest pain, difficulty breathing, shortness of breath, back pain, night sweats, pain with urination, increased urinary frequency, increased urinary urgency, blood in his urine or stool, syncope or a near syncopal episode, bowel incontinence, bladder incontinence, bowel retention, bladder retention, or any other complaints at this time. Onset (ago): month(s) (1) Location: mouth Radiation: non-radiation Severity: mild Relieving factors: none Exacerbating factors: none Associated symptoms: denies other symptoms Treatments prior to arrival: none Related Data Previous Rx's Medication Instructions Recorded rosuvastatin 40 mg tablet 40 mg PO DAILY 90 days #90 tabs 12/20/21 cholecalciferol (vitamin D3) 25 25 mcg PO DAILY 90 days #90 caps 03/21/22 mcg (1,000 unit) capsule triamcinolone acetonide 0.1 % 1 appl topical DAILY 30 days #30 07/21/22 topical cream grams blood pressure monitor (Blood #1 ea 08/19/22 Pressure Kit) fluticasone propionate 44 1 puff inhalation BID 30 days 09/27/22 mcg/actuation HFA aerosol inhaler #10.6 grams (Flovent HFA) omeprazole 20 mg capsule,delayed 20 mg PO QAM 90 days #90 caps 09/27/22 release trazodone 100 mg tablet 200 mg (2 x 100 mg) PO DAILY PRN 09/27/22 insomnia 90 days #180 tabs metoprolol succinate 50 mg 50 mg PO DAILY #30 tabs 10/13/22 tablet,extended release 24 hr (Toprol XL) albuterol sulfate 90 mcg/actuation 2 puff inhalation Q6H PRN 12/25/22 aerosol inhaler (Ventolin HFA) shortness of breath or wheezing 30 days #6.7 grams losartan 50 mg tablet 50 mg PO DAILY 90 days #90 tabs 01/28/23 bacitracin zinc 500 unit/gram 1 appl topical Q8H 7 days #14 grams 03/06/23 topical ointment (Antibiotic (bacitracin zinc)) doxycycline hyclate 100 mg capsule 100 mg PO BID #14 caps 03/29/23 aspirin 81 mg tablet,delayed 81 mg PO DAILY 90 days #90 tabs 04/28/23 release Allergies Allergy/AdvReac Type Severity Reaction Status Date / Time Penicillins [PENICILLINS] Allergy Intermediate Rash Verified 05/06/23 08:17 atorvastatin AdvReac Intermediate elevated Verified 05/06/23 08:17 liver enzymes quetiapine [From SEROQUEL] AdvReac Intermediate ERRATIC Verified 05/06/23 08:17 BEHAVIOR, NIGHTMARES,DIZZINESS Review of Systems Constitutional: Constitutional: Reports no additional constitutional complaints, Denies chills, Denies fever(s) and Denies night sweats Eyes: Eyes: Reports no additional eye complaints, Denies blurry vision, Denies change in vision, Denies diplopia, Denies eye discharge, Denies loss of vision and Denies eye pain ENT: Denies dizziness Comments: lower lip lesion Cardiovascular: Cardiovascular: Reports no additional cardiovascular complaints, Denies chest pain, Denies lightheadedness, Denies Loss of Consciousness and Denies dyspnea Respiratory: Respiratory: Reports no additional respiratory complaints and Denies dyspnea Gastrointestinal: Gastrointestinal: Reports no additional gastrointestinal complaints, Denies abdominal pain, Denies melena, Denies hematochezia, Denies change in bowel habits and Denies change in stool character Genitourinary: Genitourinary: Reports no additional male genitourinary complaints, Denies hematuria, Denies oliguria, Denies difficulty urinating, Denies dysuria, Denies urinary frequency, Denies urinary hesitancy, Denies urinary incontinence and Denies urinary urgency Musculoskeletal: Musculoskeletal: Reports no additional musculoskeletal complaints, Denies numbness and Denies tingling Neurologic: Denies dizziness, Denies loss of vision, Denies numbness and Denies tingling Psychiatric: Psychiatric: Reports no additional psychiatric complaints Endocrine: Endocrine: Reports no additional endocrine complaints Hematologic/Lymphatic: Hematologic/Lymphatic: Reports no additional hematologic/lymphatic complaints Allergic/Immunologic: Allergic/Immunologic: Reports no additional allergic/immunologic complaints PMFSH Past Medical History Attestation statement: The following information was validated with the patient. (patient's daughter validated all information provided by the patient.) Source: old records reviewed, obtained from family (patient's daughter provided additional history and confirmed the history provided by the patient.) and nursing notes reviewed Onset Date is defined in the Problem List Problems that require an onset date and time if occurred within 24 hrs of arrival to the ED Aortic Dissection and Rupture; Neurologic impairment; Cardiopulmonary Arrest; Endotracheal Intubation; Insertion or Replacement of Mechanical Circulatory Assist Device Medical History (Updated 05/06/23 @ 10:18 by BRITT Maloney) Mass of lip Lesion of lip Physical exam Pre-op evaluation Obesity (BMI 30.0-34.9) Need for dental care Pre-operative clearance Left shoulder pain CVA (cerebral vascular accident) Myocardial infarction Hypovitaminosis D Mixed hyperlipidemia Right-sided lacunar infarction CAD (coronary artery disease) Dyslipidemia Hearing loss GERD (gastroesophageal reflux disease) Insomnia Essential hypertension Pernicious anemia Surgical History Hx of esophagogastroduodenoscopy Stented coronary artery Family History Family History Father No problems noted. Mother No problems noted. Social History Social History Household Members: None Housing: Apartment Do you presently have visiting nurse or other home services: No Alcohol intake: never Patient Tobacco Use Status: Current someday Tobacco user Tobacco use type: Cigarette Cigarettes Per Day: 2 e-Cigarette/Vaping Use: Never Used Second Hand Smoke Exposure: No Advance Directives: No Advance Directives Information Provided: Yes service: No Current occupational status: retired Cognitive needs: No Hearing needs: Yes Vision needs: No Physical Exam ED Vital Signs: Vital Signs - 24 hr 05/06/23 08:17 Temperature 97.9 F Pulse Rate 54 Respiratory Rate 18 Blood Pressure 142/62 H Pulse Oximetry 95 Oxygen Delivery Method Room Air BMI result Body Mass Index 24.5 Const General: cooperative, no acute distress, alert and awake Nutritional Appearance: well nourished Orientation/consciousness: patient oriented x3 Limitations: no limitations HENMT Head: Yes normal to inspection and Yes atraumatic Ears: hearing grossly normal bilaterally and external ears normal General nose exam: Normal external nose present, no nasal discharge noted and no epistaxis Face and sinus: Yes normal facial exam, No abrasion and No laceration Mouth: Normal oral and palatal mucosa present, no drooling and no muffled voice Mouth/tongue images: 1. large irregular lip lesion Eyes General: appearance normal, both eyes and all related structures Periorbital: periorbital findings normal Eyelids: Yes eyelids normal Conjunctivae: conjunctivae normal Pupils: Equal, round and reactive pupils present EOM: EOMs intact bilaterally Neck Neck: Yes normal visual inspection, Yes full ROM and Yes no lymphadenopathy Chest Chest palpation & inspection: normal inspection of the chest Resp Effort & Inspection: normal respiratory effort and able to speak in complete sentences GI Inspection: Yes normal to inspection Neuro General: patient oriented x3 and moves all extremities Cranial nerves: Yes Equal, round and reactive pupils present Cognition (Neuro): normal cognition Motor exam (neuro): 5/5 motor strength present throughout Sensory Exam: Normal double simultaneous stimulation for sensation Coordination: [id number] test normal Extrem General: Yes normal to inspection, Yes full ROM and Yes capillary refill normal Psych Appearance: grossly normal Mental Status: mental status grossly normal Affect: normal affect Attitude: cooperative Thought process: Normal thought process present Thought content: Normal thought content present Insight: Good insight present (Psych) Procedures Smoking Cessation Time Spent Discussing Smoking Cessation w/Patient (min): 10 Patient Acknowledges Need for Cessation: Yes Medical Decision Making Medical Decision Making MDM Narrative: Patient is a 77 year old assigned male at with a history of CAD, HTN, GERD, and tobacco use presenting to the emergency department today with a large lower lip lesion. Patient's physical exam showed a large lower lip lesion that is likely cancerous in nature. I explained my physical exam findings to the patient and the patient's daughter. I answered all questions asked by the patient and the patient's daughter. I counseled the patient in smoking cessation including resources on how to stop smoking and where to go for additional resources on how to stop smoking. I stressed the importance of the patient taking his medication as prescribed. I stressed the importance of the patient following up with his primary care provider and the plastic surgeon as scheduled later this month. I stressed the importance of the patient returning to the emergency department immediately if his symptoms were to worsen or if he were to develop any dizziness, shortness of breath, difficulty breathing, chest pain, blurry vision, loss of vision, nausea, vomiting, abdominal pain, fever, chills, back pain, or any other complaints. Patient and the patient's daughter verbalized agreement and understanding with this treatment plan and discharge. Differential Diagnosis Differential Diagnoses: The differential diagnosis associated with the presentation includes Lip lesion Lip mass Lip cancer Admission/Observation Consideration of admission/observation: Escalation of care including admission/observation considered Patient would have been admitted to the hospital had his clinical presentation warranted hospital admission. Independent Historian Clinical information obtained from an independent historian. History obtained from or confirmed by: Other (patient's daughter provided additional history and confirmed the history provided by the patient.) Chronic Conditions Patient?s care impacted by: Hypertension Discharge Plan Discharge Clinical Impression: Lesion of lip Patient Disposition: Home, Self-Care Additional Instructions: Follow up with your primary care provider and your plastic surgeon. Return to the emergency department immediately if your symptoms worsen or if you develop any dizziness, shortness of breath, difficulty breathing, chest pain, blurry vision, loss of vision, nausea, vomiting, abdominal pain, fever, chills, back pain, or any other complaints. Milena un seguimiento con zamudio proveedor de atenci?n primaria y zamuido cirujano pl?stico. Regrese al departamento de emergencias inmediatamente si isaac s?ntomas empeoran o si presenta mareos, dificultad para respirar, dificultad para respirar, dolor en el pecho, visi?n borrosa, p?rdida de la visi?n, n?useas, v?mitos, dolor abdominal, fiebre, escalofr?os, dolor de espalda o cualquier otras quejas. Prescriptions: No Action rosuvastatin 40 mg tablet 40 mg PO DAILY 90 Days Qty: 90 3RF cholecalciferol (vitamin D3) 25 mcg (1,000 unit) capsule 25 mcg PO DAILY 90 Days Qty: 90 3RF (DME) blood pressure monitor [Blood Pressure Kit] Kit See Rx Instructions .Route Qty: 1 0RF Rx Instructions: As directed Flovent HFA 44 mcg/actuation HFA aerosol inhaler 1 puff inhalation BID 30 Days Qty: 10.6 1RF Rx Instructions: administer with spacer omeprazole 20 mg capsule,delayed release(DR/EC) 20 mg PO QAM 90 Days Qty: 90 2RF trazodone 100 mg tablet 200 mg PO DAILY PRN (Reason: insomnia) 90 Days Qty: 180 3RF metoprolol succinate [Toprol XL] 50 mg tablet extended release 24 hr 50 mg PO DAILY Qty: 30 11RF albuterol sulfate [Ventolin HFA] 90 mcg/actuation HFA aerosol inhaler 2 puff inhalation Q6H PRN (Reason: shortness of breath or wheezing) 30 Days Qty: 6.7 2RF losartan 50 mg tablet 50 mg PO DAILY 90 Days Qty: 90 1RF bacitracin zinc [Antibiotic (bacitracin zinc)] 500 unit/gram ointment 1 appl topical Q8H 7 Days Qty: 14 0RF aspirin 81 mg tablet,delayed release (DR/EC) 81 mg PO DAILY 90 Days Qty: 90 1RF triamcinolone acetonide 0.1 % cream 1 appl topical DAILY 30 Days Qty: 30 0RF doxycycline hyclate 100 mg capsule 100 mg PO BID Qty: 14 0RF Referrals: Hawa Chatman MD [Primary Care Provider] - Print Language: Cambodian
== END 2023-05-06 10:29 | disposition home or self-care (01) ==
PROVIDERS: Emergency Provider Student in an Organized Health Care Education/Training Program; PCP Internal Medicine
DX: K13.0 Diseases of lips (principal); F17.210 Nicotine dependence, cigarettes, uncomplicated; Z71.6 Tobacco abuse counseling
CPT/HCPCS: 99283

== ENCOUNTER 2023-05-10 10:01 | Outpatient (AMB) | payer OTHER, SELFPAY ==
[2023-05-10 10:13] VITALS: BMI 29.8
--- NOTE | 2023-05-10 10:13 | A.OFFVIS_ITS ---
Intake Vital Signs 05/10/23 10:13 Height 5 ft 7 in Weight 190 lb BMI 29.8 Intake Visit Reasons: Lesion of lip, Bx Intake Note: This patient presents for an assessment for lesion of lip, discuss biopsy. Patient c/o; reports no changes. Wedding Transportation Driver Required: Yes Wedding Transportation Driver Language: Smelter Liner Name: Miriam Information Interpreted: non-clinical & clinical Accompanied by: Grand Child Allergies Penicillins [PENICILLINS] Allergy (Intermediate, Verified 05/10/23 10:23) Rash atorvastatin Adverse Reaction (Intermediate, Verified 05/10/23 10:23) elevated liver enzymes quetiapine [From SEROQUEL] Adverse Reaction (Intermediate, Verified 05/10/23 10:23) ERRATIC BEHAVIOR, NIGHTMARES,DIZZINESS Medication List - Last Reconciled 05/10/23 by Caio Medellin MD albuterol sulfate 90 mcg/actuation (Ventolin HFA) 2 puffs inhalation Q6H PRN 30 days aspirin 81 mg PO DAILY 90 days bacitracin zinc (Antibiotic (bacitracin zinc)) 1 appl topical Q8H 7 days blood pressure monitor (Blood Pressure Kit) As directed cholecalciferol (vitamin D3) 25 mcg PO DAILY 90 days doxycycline hyclate 100 mg PO BID fluticasone propionate 44 mcg/actuation (Flovent HFA) 1 puff inhalation BID 30 days losartan 50 mg PO DAILY 90 days metoprolol succinate ER (Toprol XL) 50 mg PO DAILY metoprolol tartrate 25 mg PO DAILY omeprazole 20 mg PO QAM 90 days rosuvastatin 40 mg PO DAILY 90 days trazodone 200 mg (2 x 100 mg) PO DAILY PRN 90 days triamcinolone acetonide 0.1% 1 appl topical DAILY 30 days HPI Lesion of lip, Bx HPI Details 77-year-old male referred for a lip lesi on. He says that this started about 3 months ago. He states that he bit his lip at that time and this lesion was noted. This lesion has continued to increase in size. He describes occasional bleeding from the area. His granddaughter states that he had been waiting to see a specialist this lip lesion but he could not be seen by ENT nor plastic surgery he says so they called the office to have him seen Hehas a long history of smoking. [facility] Medical History (Updated 05/10/23 @ 10:25 by Caio Medellin MD) Lesion of lip Mass of lip Physical exam Pre-op evaluation Obesity (BMI 30.0-34.9) Need for dental care Pre-operative clearance Left shoulder pain CVA (cerebral vascular accident) Myocardial infarction Hypovitaminosis D Mixed hyperlipidemia Right-sided lacunar infarction CAD (coronary artery disease) Dyslipidemia Hearing loss GERD (gastroesophageal reflux disease) Insomnia Essential hypertension Pernicious anemia Surgical History Hx of esophagogastroduodenoscopy Stented coronary artery Family History Father No problems noted. Mother No problems noted. Social History Household Members: None Housing: Apartment Do you presently have visiting nurse or other home services: No Alcohol intake: never Patient Tobacco Use Status: Current someday Tobacco user Tobacco use type: Cigarette Cigarettes Per Day: 2 e-Cigarette/Vaping Use: Never Used Second Hand Smoke Exposure: No service: No Current occupational status: retired Cognitive needs: No Hearing needs: Yes Vision needs: No Review of Systems Const Denies chills and Denies fever(s) Card Denies chest pain, Denies dyspnea and Denies dyspnea on exertion Resp Denies cough, Denies dyspnea and Denies dyspnea on exertion GI Denies hematochezia and Denies change in bowel habits Denies hematuria and Denies difficulty urinating Musc Denies back pain and Denies limited range of motion Neuro Denies focal weakness and Denies convulsions Psych Denies depression and Denies mood swings Physical Exam Vital Signs: BMI result Body Mass Index 29.8 Const General: comfortable and no acute distress Orientation/consciousness: patient oriented x3 HEENT Other: Elevated lesion on the lower lip on the left side, appears friable and very i rregular, 2.8 cm in widest dimension Neck Neck: Yes no lymphadenopathy Resp Auscultation: clear to auscultation bilaterally Cardio Rhythm: regular rhythm GI Palpation (GI): Soft to palpation, nontender and no guarding Neuro General: patient oriented x3 Assessment & Plan Assessment & Plan (1) Lesion of lip: Code(s): K13.0 - Diseases of lips Plan: He has a lip lesion as described above. This appears suspicious for a malignancy. I will schedule him for a biopsy of this lesion under local anesthesia at the minor procedure room. I explained the technique of this procedure. I reviewed the risks including but not limited to bleeding and infections. He has agreed to proceed. Quality Reporting (2019) Adult ([facility] 138/06/22/68) Smoking risk assessment performed?: Yes Patient Tobacco Use Status: Current someday Tobacco user Coding Level of Care Code New Pt Level 3 (76253) Diagnoses Lesion of lip K13.0
== END 2023-05-10 10:43 | disposition home or self-care (01) ==
PROVIDERS: PCP Internal Medicine; Visit Provider Surgery
DX: K13.0 Diseases of lips (principal)
CPT/HCPCS: 99203

== ENCOUNTER → 2023-05-10 10:01 | Outpatient (BNVA) | payer OTHER, SELFPAY | PROVIDERS: PCP Internal Medicine; Visit Provider Surgery | DX: K13.0 Diseases of lips (principal) | CPT/HCPCS: 99202 ==

== ENCOUNTER 2023-05-25 | Outpatient (REF) | payer OTHER, SELFPAY ==
[2023-05-25 11:25] VITALS: BMI 29.6
[2023-05-25 11:45] VITALS: BP 116/61; PULSE 52; RESP 16; O2SAT 97
--- NOTE | 2023-05-25 11:45 | W.PM.OPN ---
Operative Note Operative Note Date of Service: 05/25/23 Narrative: Preop diagnosis: Lip lesion Postop diagnosis: Lip lesion Procedure: Biopsy of lip lesion under local anesthesia Surgeon: Caio Medellin MD The patient is a 77-year-old male with note of a large fungating lesion on the lower lip about 2 cm in widest dimension. He understood the technique of biopsy. He was worried the risks, benefits, and alternatives I used lidocaine 1% to infiltrate the area that I was going to biopsy. I then excised a wedge shaped piece of the lesion using Metzenbaum scissors and forceps. This was sent as specimen. I achieved hemostasis on the excision site with nitrate sticks. Once hemostasis was confirmed, I have applied dressings. The procedure was completed. He tolerated the procedure well. There were no immediate complications. I will see him in the office to discuss the path report.
[2023-05-25 11:54] VITALS: BP 131/61; PULSE 65; RESP 16; TEMP 36.4; O2SAT 96
== END 2023-05-25 00:01 | disposition home or self-care (01) ==
LOC: HO.MS
PROVIDERS: PCP Internal Medicine; Visit Provider Surgery
PROC: (CPT 11106; principal; 2023-05-25 11:30)
DX: K13.0 Diseases of lips (principal)
CPT/HCPCS: 11106; 88305

== ENCOUNTER → 2023-05-25 11:30 | Outpatient (BNV) | payer OTHER, SELFPAY | PROVIDERS: PCP Internal Medicine; Visit Provider Surgery | DX: K13.0 Diseases of lips (principal) | CPT/HCPCS: 11106 ==

== ENCOUNTER 2023-05-27 08:35 | Outpatient (REF) | payer OTHER, SELFPAY ==
[2023-05-27 10:39] LABS: Alanine Aminotransferase 37 U/L (0-40); Albumin Level 3.9 g/dL (3.5-5.0); Alkaline Phosphatase 67 U/L (39-117); Anion Gap 10 (12-20); Aspartate Amino Transferase 32 U/L (5-37); Bilirubin Total 0.5 mg/dL (0.0-1.0); Blood Urea Nitrogen 11 mg/dL (9-16); Calcium 8.9 mg/dL (8.4-10.2); Carbon Dioxide 28 mmol/L (22-29); Chloride 107 mmol/L (96-108); Cholesterol 99 mg/dL (<200); Estimated Glomerular Filt Rate > 60; Glucose Fasting 95 mg/dL (60-99); HDL Cholesterol 28 mg/dL (>40); LDL Cholesterol Calculated 40 mg/dL (<100); Potassium 4.3 mmol/L (3.3-5.1); Sodium 141 mmol/L (135-145); Total Protein 7.7 g/dL (6.5-8.0); Triglycerides 157 mg/dL (<150)
[2023-05-27 10:45] LABS: PSA,Total (Free>4and<10) 4.23 ng/mL (0.00-4.00)
[2023-05-27 10:56] LABS: Folate 5.7 ng/mL (> or = 4.0)
[2023-05-27 11:22] LABS: Vitamin B12 384 pg/mL (200-900)
[2023-05-31 11:03] LABS: Free Prostate Spec Ag 1.3 ng/mL; Percent Free Prostate Spec Ag 33 % (calc) (>25); Prostate Specific Ag Total 3.9 ng/mL (< OR = 4.0)
== END 2023-05-27 08:36 | disposition home or self-care (01) ==
LOC: HO.LAB 08:35
PROVIDERS: PCP Internal Medicine; Visit Provider Internal Medicine
DX: Z12.5 Encounter for screening for malignant neoplasm of prostate (principal); E53.8 Deficiency of other specified B group vitamins; I63.81 Other cerebral infarction due to occlusion or stenosis of small artery; E55.9 Vitamin D deficiency, unspecified; E78.5 Hyperlipidemia, unspecified
CPT/HCPCS: 36415; 80053; 80061; 82306; 82607; 82746; 84153; 84154

== ENCOUNTER 2023-06-07 10:07 | Outpatient (AMB) | payer OTHER, SELFPAY ==
[2023-06-07 10:10] VITALS: BP 168/70; PULSE 59; BMI 30.5
--- NOTE | 2023-06-07 10:10 | MHC.OFFVIS ---
Intake Vital Signs 06/07/23 10:10 Height 5 ft 7 in Weight 195 lb BMI 30.5 BP 168/70 H Blood Pressure Location Lt brachial Position Sitting Pulse 59 Intake Visit Reasons: S/P biopsy lip lesion Intake Note: This patient presents for a post-op follow-up assessment status post biopsy lip lesion. Pt c/o; reports no complaints at this time. 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 This was done under local anesthesia. He is here to discuss the path report. He says he has no complaints at this time. [facility] Medical History Lesion of lip Mass of lip Physical exam Pre-op evaluation Obesity (BMI 30.0-34.9) Need for dental care Pre-operative clearance Left shoulder pain CVA (cerebral vascular accident) Myocardial infarction Hypovitaminosis D Mixed hyperlipidemia Right-sided lacunar infarction CAD (coronary artery disease) Dyslipidemia Hearing loss GERD (gastroesophageal reflux disease) Insomnia Essential hypertension Pernicious anemia Surgical History Hx of esophagogastroduodenoscopy Stented coronary artery Family History Father No problems noted. Mother No problems noted. Social History Household Members: None Housing: Apartment Do you presently have visiting nurse or other home services: No Alcohol intake: never Patient Tobacco Use Status: Current someday Tobacco user Tobacco use type: Cigarette Cigarettes Per Day: 2 e-Cigarette/Vaping Use: Never Used Second Hand Smoke Exposure: No service: No Current occupational status: retired Cognitive needs: No Hearing needs: Yes Vision needs: No Review of Systems Const Denies chills and Denies fever(s) Card Denies chest pain, Denies dyspnea and Denies dyspnea on exertion Resp Denies cough, Denies dyspnea and Denies dyspnea on exertion GI Denies hematochezia and Denies change in bowel habits Denies hematuria and Denies difficulty urinating Musc Denies back pain and Denies limited range of motion Neuro Denies focal weakness and Denies convulsions Psych Denies depression and Denies mood swings Physical Exam Vital Signs: Last Vital Signs Pulse 59 06/07/23 10:10 BP 168/70 H 06/07/23 10:10 BMI result Body Mass Index 30.5 Const General: comfortable and no acute distress HEENT Other: Lip lesion, elevated, irregular, with raw surfaces, 2.5 cm at widest dimension on the lower lip Assessment & Plan Assessment & Plan (1) Lesion of lip: Code(s): K13.0 - Diseases of lips Plan: Status post biopsy. His path report shows atypical endophytic squamous proliferation. A squamous cell carcinoma could not be ruled out so more tissue for diagnosis is recommended. I explained to the patient that will repeat the biopsy and remove larger tissue. I reviewed with him the technique of this procedure Will be scheduled at the minor procedure room. He understands the plan. He is aware of the risks, benefits, and alternatives Quality Reporting (2020) Adult ([facility] 138/06/22/68) Smoking risk assessment performed?: Yes Patient Tobacco Use Status: Current someday Tobacco user Coding Level of Care Code Global (29085) Diagnoses Lesion of lip K13.0
== END 2023-06-07 11:02 | disposition home or self-care (01) ==
PROVIDERS: PCP Internal Medicine; Visit Provider Surgery
DX: K13.0 Diseases of lips (principal)
CPT/HCPCS: 99214

== ENCOUNTER → 2023-06-07 10:07 | Outpatient (BNVA) | payer OTHER, SELFPAY | PROVIDERS: PCP Internal Medicine; Visit Provider Surgery | DX: K13.0 Diseases of lips (principal) | CPT/HCPCS: 99212 ==

== ENCOUNTER 2023-07-12 13:36 | Outpatient (REF) | payer OTHER, SELFPAY ==
[2023-07-12 13:59] VITALS: BP 180/74; PULSE 53; RESP 17; TEMP 36.9; O2SAT 97; BMI 30.2
--- NOTE | 2023-07-12 14:35 | W.PM.OPN ---
Operative Note Operative Note Date of Service: 07/12/23 Narrative: Preop diagnosis: Lower lip lesion Postop diagnosis: The same Procedure: Biopsy of lip lesion under local anesthesia Surgeon: Caio Medellin MD The patient is a 77-year-old male with note of on regular, ulcerating lip lesion and lower lip. He had previously under went a biopsy in the office but there was not enough tissue to make a diagnosis and rule out a squamous cell carcinoma. I thus for schedule him for a larger biopsy in the minor procedure room. He understood the technique of the planned procedure as well as the risks, benefits, and alternatives. He was placed in a reclining position. The area of the lesion was prepped and draped. Lidocaine 1% was used for local anesthesia. I excised a wedge shaped area of the lip lesion using blade 15. This was sent as a specimen. This measured about 5 mm in diameter I closed this incision with a [id number] chromic 3-0 stitch The procedure was completed. There was note of good hemostasis. He tolerated procedure well. There were no immediate complications. Estimated blood loss was about 5 cc He was given wound care instructions.
== END 2023-07-12 13:37 | disposition home or self-care (01) ==
LOC: HO.MS 13:36
PROVIDERS: PCP Internal Medicine; Visit Provider Surgery
PROC: (CPT 40812; principal; 2023-07-12 14:10)
DX: K13.0 Diseases of lips (principal); L98.8 Other specified disorders of the skin and subcutaneous tissue
CPT/HCPCS: 40812; 88305; 88312

== ENCOUNTER → 2023-07-12 13:36 | Outpatient (BNV) | payer OTHER, SELFPAY | PROVIDERS: PCP Internal Medicine; Visit Provider Surgery | DX: K13.0 Diseases of lips (principal) | CPT/HCPCS: 40510 ==

== ENCOUNTER 2023-07-26 16:04 | Outpatient (AMB) | payer OTHER, SELFPAY ==
--- NOTE | 2023-07-26 16:04 | MHC.PC.OV ---
Vital Signs 07/26/23 16:05 Height 5 ft 7 in Weight 196 lb BMI 30.7 BP 138/82 Blood Pressure Location Lt brachial Position Sitting Intake Visit Reasons: 4 month f/u Intake Note: Patient here for a 4 month follow up Company Pilot Required: No Accompanied by: Grand Child Allergies Penicillins [PENICILLINS] Allergy (Intermediate, Verified 07/26/23 16:32) Rash atorvastatin Adverse Reaction (Intermediate, Verified 07/26/23 16:32) elevated liver enzymes quetiapine [From SEROQUEL] Adverse Reaction (Intermediate, Verified 07/26/23 16:32) ERRATIC BEHAVIOR, NIGHTMARES,DIZZINESS Medication List - Last Reconciled 07/26/23 by Hawa Singh MD albuterol sulfate 90 mcg/actuation (Ventolin HFA) 2 puffs inhalation Q6H PRN 30 days aspirin 81 mg PO DAILY 90 days blood pressure monitor (Blood Pressure Kit) As directed cholecalciferol (vitamin D3) 25 mcg PO DAILY 90 days doxycycline hyclate 100 mg PO BID fluticasone propionate 44 mcg/actuation (Flovent HFA) 1 puff inhalation BID 30 days losartan 50 mg PO DAILY 90 days metoprolol succinate ER (Toprol XL) 50 mg PO DAILY metoprolol tartrate 25 mg PO DAILY nicotine (polacrilex) 4 mg buccal Q1H omeprazole 20 mg PO QAM 90 days rosuvastatin 40 mg PO DAILY 90 days trazodone 200 mg (2 x 100 mg) PO DAILY PRN 90 days triamcinolone acetonide 0.1% 1 appl topical DAILY 30 days Tobacco use date assessed: 07/26/23 Fall risk assessment: No Falls in past year Last assessed Fall Risk: 07/26/23 Dental Screening Dental Screen Date: 07/26/23 Did you have a dental visit in the last 12 months?: No Did you have a dental problem in the last 6 months where you did not have access to dental care?: No Was dental information given to patient?: Patient has dentist HPI HPI Comments History of Present Illness Details This is a 77-year-old male with hypertension, history of right lacunar infarction with no residual deficit, GERD and mixed hyperlipidemia that comes today for follow-up on her conditions accompanied by granddaughter. Blood pressure stable. Cholesterol well control with medication. On aspirin for secondary prophylaxis of cerebrovascular accident. Has elevated PSA and will be referred to Urology. GERD also stable with medications. [facility] Medical History (Updated 07/26/23 @ 16:44 by Hawa Singh MD) Lesion of lip Mass of lip Physical exam Pre-op evaluation Obesity (BMI 30.0-34.9) Need for dental care Pre-operative clearance Left shoulder pain CVA (cerebral vascular accident) Myocardial infarction Hypovitaminosis D Mixed hyperlipidemia Right-sided lacunar infarction CAD (coronary artery disease) Dyslipidemia Hearing loss GERD (gastroesophageal reflux disease) Insomnia Essential hypertension Pernicious anemia Surgical History Hx of esophagogastroduodenoscopy Stented coronary artery Family History Father No problems noted. Mother No problems noted. Social History Household Members: None Housing: Apartment Do you presently have visiting nurse or other home services: No Alcohol intake: never Patient Tobacco Use Status: Former Tobacco user Tobacco use type: Cigarette Cigarettes Per Day: 2 e-Cigarette/Vaping Use: Never Used Second Hand Smoke Exposure: No service: No Current occupational status: retired Cognitive needs: No Hearing needs: Yes Vision needs: No Questionnaire PHQ-9 Over the last 2 weeks, how often have you been bothered by any of the following problems? 1. Little interest or pleasure in doing things: not at all 2. Feeling down, depressed, or hopeless: not at all 3. Trouble falling or staying asleep, or sleeping too much: not at all 4. Feeling tired or having little energy: not at all 5. Poor appetite or overeating: not at all 6. Feeling bad about yourself - or that you are a failure or have let yourself or your family down: not at all 7. Trouble concentrating on things, such as reading the newspaper or watching television: not at all 8. Moving or speaking so slowly that other people could have noticed. Or the opposite - being so fidgety or restless that you have been moving around a lot more than usual: not at all 9. Thoughts that you would be better off or of hurting yourself in some way: not at all Total score: 0 Depression Screening Interpretation: Negative Depression Screening Done: Yes 27806 - PHQ-9 Billing: Yes Source: Developed by Ebonie Madrid Kurt Kroenke and colleagues, with an educational caio from [employer]. Thrive Questionnaire Date Thrive assessed: 07/26/23 I am a: Patient What is your living situation today?: I have a steady place to live Within the past 12 months, did the food you bought not last and you didn't have the money to get more?: Never true Within the past 12 months, did you worry whether your food would run out before you got money to buy more?: Never true Do you have trouble paying for medicines?: No Do you have trouble getting transportation to medical appointments?: No Do you have trouble paying your heating and electricity bill?: No Do you have trouble taking care of your child, family member or friend?: No Do you have trouble with day-to-day activities such as bathing, preparing meals, shopping, managing finances, etc.?: No Are you currently unemployed and looking for a job?: No Are you interested in more education?: No Please select the resources that you would like help with: None Currently or been in a relationship where the following occur: no concerns reported THRIVE Score: 0 AUDIT C Alcohol Use Questionnaire (AUDIT-C) 1. How often do you have a drink containing alcohol?: Never Total Score: 0 OSMAN-7 AMB Questionnaire OSMAN-7 Date OSMAN - 7 assessed: 07/26/23 Feeling nervous, anxious, or on edge: 0 = Not at all Not being able to stop or control worryin = Not at all Worrying too much about different things: 0 = Not at all Trouble relaxin = Not at all Being so restless that it is hard to sit still: 0 = Not at all Becoming easily annoyed or irritable: 0 = Not at all Feeling afraid as if something awful might happen: 0 = Not at all Total OSMAN-7 score (0-4 normal; 5-9 mild; 10-14 moderate; 15-21 severe): 0 Source: Developed by Ebonie Madrid Kurt Kroenke and colleagues, with an educational caio from [employer]. OSMAN-7 Assessment Billing OSMAN-7 Assessment Tool: OSMAN-7 Assessment 32141 Review of Systems Const All systems reviewed & are unremarkable except as noted in HPI and below Eyes Reports no additional complaints, Denies change in vision and Denies other visual disturbances Card Denies chest pain at rest, Denies chest pain with activity, Denies edema, Denies irregular heart rhythm, Denies claudication, Denies dyspnea, Denies dyspnea on exertion, Denies orthopnea, Denies paroxysmal nocturnal dyspnea and Denies slow heart rate Resp Denies cough, Denies dyspnea and Denies dyspnea on exertion GI Denies abdominal pain, Denies change in bowel habits, Denies excessive flatus, Denies nausea and Denies vomiting Denies urinary hesitancy, Denies urinary incontinence and Denies urinary urgency Physical exam (Primary Care) Vital Signs: Last Vital Signs BP 138/82 07/26/23 16:05 BMI result Body Mass Index 30.7 Tobacco/Smoking Status: Tobacco use Status Tobacco use date assessed 07/26/23 07/26/23 16:14 Patient Tobacco Use Status Former Tobacco user 07/26/23 16:14 Tobacco use type Cigarette 07/26/23 16:07 e-Cigarette/Vaping Use Never Used 07/26/23 16:07 PHQ-9: PHQ-9 Score PHQ-9: Total score 0 07/26/23 16:45 Depression Screening Interpretation: Negative Thrive Assessment: Date of Thrive Assessment Date Thrive assessed 07/26/23 07/26/23 16:14 Currently or been in a relationship where the following occur: no concerns reported Const Orientation/consciousness: patient oriented x3 [facility] Head: Yes normal to inspection Resp Effort & Inspection: normal respiratory effort Auscultation: clear to auscultation bilaterally Cardio Jugular venous distension: no JVD Rate: regular rate Rhythm: regular rhythm Heart sounds: S1 normal heart sound present and S2 normal heart sound present Neuro General: patient oriented x3 and no focal motor deficits Extrem General: Yes full ROM Psych Appearance: grossly normal Assessment and Plan Assessment & Plan (1) Right-sided lacunar infarction: Code(s): I63.81 - Other cerebral infarction due to occlusion or stenosis of small artery Plan: Continue aspirin for secondary prophylaxis. (2) Essential hypertension: Code(s): I10 - Essential (primary) hypertension Plan: Continue losartan. Blood pressure goal is equal or less than 130/80. (3) Mixed hyperlipidemia: Code(s): E78.2 - Mixed hyperlipidemia Plan: Continue statins. LDL goal is less than 70. (4) GERD (gastroesophageal reflux disease): Code(s): K21.9 - Gastro-esophageal reflux disease without esophagitis Qualifiers: Esophagitis presence: esophagitis presence not specified Qualified Code(s): K21.9 - Gastro-esophageal reflux disease without esophagitis Plan: Continue PPIs. Orders: Orders XR chest 2V Today R06.09 - Other forms of dyspnea Referrals Urology Referral R97.20 - Elevated prostate specific antigen [PSA] Medications: New nicotine (polacrilex) 4 mg buccal Q1H 30 days 40 ea 11RF Changed From metoprolol tartrate 25 mg PO DAILY To metoprolol tartrate 25 mg PO DAILY 90 days 90 tabs 1RF Refilled doxycycline hyclate 100 mg PO BID 14 caps 0RF K13.0 - Diseases of lips albuterol sulfate 90 mcg/actuation (Ventolin HFA) 2 puffs inhalation Q6H 30 days PRN 6.7 grams 2RF shortness of breath or wheezing losartan 50 mg PO DAILY 90 days 90 tabs 1RF trazodone 200 mg (2 x 100 mg) PO DAILY 90 days PRN 180 tabs 3RF insomnia triamcinolone acetonide 0.1% 1 appl topical DAILY 30 days 30 grams 0RF cholecalciferol (vitamin D3) 25 mcg PO DAILY 90 days 90 caps 3RF E55.9 - Vitamin D deficiency, unspecified aspirin 81 mg PO DAILY 90 days 90 tabs 1RF omeprazole 20 mg PO QAM 90 days 90 caps 2RF rosuvastatin 40 mg PO DAILY 90 days 90 tabs 3RF I25.10 - Atherosclerotic heart disease of [place] coronary artery without angina pectoris Discontinued fluticasone propionate 44 mcg/actuation (Flovent HFA) administer with spacer Discontinued Reason: Insurance Denied 1 puff inhalation BID 30 days 10.6 grams 1RF metoprolol succinate ER (Toprol XL) Discontinued Reason: Duplicate 50 mg PO DAILY 30 tabs 11RF Coding Level of Care Code Est Pt Level 4 (92704) Diagnoses Right-sided lacunar infarction I63.81 Essential hypertension I10 Mixed hyperlipidemia E78.2 Gastroesophageal reflux disease, unspecified whether esophagitis present K21.9 Esophagitis presence: esophagitis presence not specified Additional Codes OSMAN-7 Assessment Billing - OSMAN-7 Assessment Tool: OSMAN-7 Assessment 80314 ([id number]) Time Spent (min) 20
[2023-07-26 16:05] VITALS: BP 138/82; BMI 30.7
== END 2023-07-26 16:44 | disposition home or self-care (01) ==
PROVIDERS: PCP Internal Medicine; Visit Provider Internal Medicine
DX: I63.81 Other cerebral infarction due to occlusion or stenosis of small artery (principal); I10 Essential (primary) hypertension; E78.2 Mixed hyperlipidemia; K21.9 Gastro-esophageal reflux disease without esophagitis
CPT/HCPCS: 99214

== ENCOUNTER 2023-07-27 15:38 | Outpatient (AMB) | payer OTHER, SELFPAY ==
[2023-07-27 15:42] VITALS: BP 141/64; PULSE 52; BMI 30.7
--- NOTE | 2023-07-27 15:42 | A.OFFVIS_ITS ---
Intake Vital Signs 07/27/23 15:42 Height 5 ft 7 in Weight 196 lb BMI 30.7 BP 141/64 H Blood Pressure Location Rt brachial Position Sitting Pulse 52 Intake Visit Reasons: S/P biopsy of lip Intake Note: This patient presents for a follow-up assessment status post biopsy of lip. Patient c/o; reports ? protruding stitch. Commercial Drafter Required: Yes Commercial Drafter Language: Occitan Information Interpreted: non-clinical & clinical Accompanied by: Grand Child Allergies Penicillins [PENICILLINS] Allergy (Intermediate, Verified 07/27/23 15:51) Rash atorvastatin Adverse Reaction (Intermediate, Verified 07/27/23 15:51) elevated liver enzymes quetiapine [From SEROQUEL] Adverse Reaction (Intermediate, Verified 07/27/23 15:51) ERRATIC BEHAVIOR, NIGHTMARES,DIZZINESS HPI S/P biopsy of lip HPI Details He had undergone biopsy of a lip lesion under local anesthesia last July 11. He tolerated procedure well. He currently denies significant complaints. [facility] Medical History Lesion of lip Mass of lip Physical exam Pre-op evaluation Obesity (BMI 30.0-34.9) Need for dental care Pre-operative clearance Left shoulder pain CVA (cerebral vascular accident) Myocardial infarction Hypovitaminosis D Mixed hyperlipidemia Right-sided lacunar infarction CAD (coronary artery disease) Dyslipidemia Hearing loss GERD (gastroesophageal reflux disease) Insomnia Essential hypertension Pernicious anemia Surgical History Hx of esophagogastroduodenoscopy Stented coronary artery Family History Father No problems noted. Mother No problems noted. Social History Household Members: None Housing: Apartment Do you presently have visiting nurse or other home services: No Alcohol intake: never Patient Tobacco Use Status: Former Tobacco user Tobacco use type: Cigarette Cigarettes Per Day: 2 e-Cigarette/Vaping Use: Never Used Second Hand Smoke Exposure: No service: No Current occupational status: retired Cognitive needs: No Hearing needs: Yes Vision needs: No Review of Systems Const Denies chills and Denies fever(s) Card Denies chest pain, Denies dyspnea and Denies dyspnea on exertion Resp Denies cough, Denies dyspnea and Denies dyspnea on exertion GI Denies hematochezia and Denies change in bowel habits Denies hematuria and Denies difficulty urinating Musc Denies back pain and Denies limited range of motion Neuro Denies focal weakness and Denies convulsions Psych Denies depression and Denies mood swings Physical Exam Vital Signs: Last Vital Signs Pulse 52 07/27/23 15:42 BP 141/64 H 07/27/23 15:42 BMI result Body Mass Index 30.7 Const General: comfortable and no acute distress HEENT Other: Biopsy site on the left lower lip is well healed, lesion seems to have resolved Assessment & Plan Assessment & Plan (1) Lesion of lip: Code(s): K13.0 - Diseases of lips Plan: Status post biopsy. 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 There is no evidence of any malignancy. Lesion itself seems to have resolved I explained to him the benign findings. He understands. He can follow up on a p.r.n. basis. Quality Reporting (2019) Adult ([facility] ) Smoking risk assessment performed?: Yes Patient Tobacco Use Status: Former Tobacco user Coding Level of Care Code Global (85502) Diagnoses Lesion of lip K13.0
== END 2023-07-27 16:03 | disposition home or self-care (01) ==
PROVIDERS: PCP Internal Medicine; Visit Provider Surgery
DX: K13.0 Diseases of lips (principal)
CPT/HCPCS: 99024

== ENCOUNTER → 2023-07-27 15:38 | Outpatient (BNVA) | payer OTHER, SELFPAY | PROVIDERS: PCP Internal Medicine; Visit Provider Surgery | DX: K13.0 Diseases of lips (principal) | CPT/HCPCS: 99212 ==

== ENCOUNTER 2023-09-08 16:08 | Outpatient (REF) | payer OTHER, SELFPAY ==
--- NOTE | ~2023-09-08 | XR_ITS ---
EXAMINATION: XR CHEST CLINICAL INFORMATION: Other forms of dyspnea, states patient is a smoker and his physician wants updated chest x-ray. COMPARISON: 01/23/2019, 07/01/2016. TECHNIQUE: 2 views of the chest were obtained. FINDINGS: Increased nodular biapical pleural thickening. Heart size is normal. There is no gross pneumothorax. Mild dextroscoliosis of the thoracolumbar spine with multilevel degenerative changes. No pleural effusion. XR/XR chest 2V IMPRESSION: Increased nodular biapical pleural thickening. CT scan recommended for further evaluation for this patient with history of tobacco abuse.
== END 2023-09-08 16:09 | disposition home or self-care (01) ==
LOC: HO.XRAY 16:08
PROVIDERS: PCP Internal Medicine; Visit Provider Internal Medicine
DX: R06.09 Other forms of dyspnea (principal)
CPT/HCPCS: 71046

== ENCOUNTER 2023-10-20 14:32 | Outpatient (REF) | payer OTHER, SELFPAY ==
--- NOTE | ~2023-10-20 | CT_ITS ---
EXAMINATION: CT CHEST WITHOUT CONTRAST CLINICAL INFORMATION: By apical nodular thickening on chest radiograph from 09/08/2023 COMPARISON: None available. TECHNIQUE: Multidetector volumetric CT imaging of the chest was done. Axial MIP volume rendering provided. Sagittal and coronal reformatted images were obtained. This CT examination was performed using dose optimization techniques as appropriate, variously including the following: *Automated exposure control *Adjustment of mA and/or kV according to patient size (this includes techniques or standardized protocols for targeted exams where dose is matched to indication/reason for exam; i.e. extremities or head) *Use of iterative reconstruction technique DLP: 134 mGy-cm Examination is limited due to respiratory motion FINDINGS: DETECTIVE YOUTH BUREAU: Unremarkable LUNGS: There is biapical scarring. Lungs are clear without nodules or consolidations seen. MEDIASTINUM: The mediastinum is normal. CORONARY ARTERY CALCIFICATION: Moderate. PLEURA: There is no pleural effusion. No pleural mass or thickening. AXILLA: No lymphadenopathy. UPPER ABDOMEN: Unremarkable. OSSEOUS STRUCTURES: Unremarkable. CT/CT chest wo IV con IMPRESSION: No lung nodules. Biapical scarring. Moderate coronary artery calcification. Fleischner guidelines were followed.
== END 2023-10-20 14:33 | disposition home or self-care (01) ==
LOC: HO.CT 14:32
PROVIDERS: PCP Internal Medicine; Visit Provider Internal Medicine
DX: R93.89 Abnormal findings on diagnostic imaging of other specified body structures (principal)
CPT/HCPCS: 71250

== ENCOUNTER 2023-12-01 09:09 | Outpatient (AMB) | payer OTHER, SELFPAY ==
--- NOTE | 2023-12-01 09:14 | A.OFFVIS_ITS ---
Vital Signs 12/01/23 09:15 Height 5 ft 7 in Weight 198 lb 6.656 oz BMI 31.1 BP 120/80 Blood Pressure Location Lt brachial Position Sitting Pulse 63 Intake Visit Reasons: r/s 10/12/23 1 year followup w/ekg Intake Note: 1 year follow-up with ekg feeling good Tattoo And Body Artist Required: Yes Tattoo And Body Artist Name: Komal thompson Carpenter And Joiner: Carpenter And Joiner Present Accompanied by: Family/Other Allergies Penicillins [PENICILLINS] Allergy (Intermediate, Verified 07/27/23 15:51) Rash atorvastatin Adverse Reaction (Intermediate, Verified 07/27/23 15:51) elevated liver enzymes quetiapine [From SEROQUEL] Adverse Reaction (Intermediate, Verified 07/27/23 15:51) ERRATIC BEHAVIOR, NIGHTMARES,DIZZINESS Medication List - Last Reconciled 12/01/23 by David Hernandez MD albuterol sulfate 90 mcg/actuation (Ventolin HFA) 2 puffs inhalation Q6H PRN 30 days aspirin 81 mg PO DAILY 90 days blood pressure monitor (Blood Pressure Kit) As directed cholecalciferol (vitamin D3) 25 mcg PO DAILY 90 days losartan 50 mg PO DAILY 90 days metoprolol tartrate 25 mg PO DAILY 90 days nicotine (polacrilex) 4 mg buccal Q1H 30 days rosuvastatin 40 mg PO DAILY 90 days trazodone 200 mg (2 x 100 mg) PO DAILY PRN 90 days triamcinolone acetonide 0.1% 1 appl topical DAILY 30 days HPI Comments Details: Cristino comes for follow-up, accompanied by his grandson. He is very hard of hearing and was difficult to obtain history with help of buggy ladle tender although the grandson could interpret and was able to help out. Patient says he has been getting symptoms exertional shortness of breath. Denies any orthopnea, PND, leg edema. Denies any exertional chest pain. Taking all his medications. Last LDL is well optimized. Denies any prolonged palpitation irregular heartbeat. No lightheadedness, syncope. [facility] Medical History Lesion of lip Mass of lip Physical exam Pre-op evaluation Obesity (BMI 30.0-34.9) Need for dental care Pre-operative clearance Left shoulder pain CVA (cerebral vascular accident) Myocardial infarction Hypovitaminosis D Mixed hyperlipidemia Right-sided lacunar infarction CAD (coronary artery disease) Dyslipidemia Hearing loss GERD (gastroesophageal reflux disease) Insomnia Essential hypertension Pernicious anemia Surgical History Hx of esophagogastroduodenoscopy Stented coronary artery Family History Father No problems noted. Mother No problems noted. Social History Household Members: None Housing: Apartment Do you presently have visiting nurse or other home services: No Alcohol intake: never Patient Tobacco Use Status: Former Tobacco user Tobacco use type: Cigarette Cigarettes Per Day: 2 e-Cigarette/Vaping Use: Never Used Second Hand Smoke Exposure: No service: No Current occupational status: retired Cognitive needs: No Hearing needs: Yes Vision needs: No Review of Systems Const Denies chills, Denies fatigue, Denies fever(s), Denies frequent falls, Denies weakness, Denies weight gain and Denies weight loss ENT Denies dizziness Card Denies chest pain, Denies leg edema, Denies lightheadedness, Denies palpitations, Denies dyspnea, Denies dyspnea on exertion, Denies orthopnea and Denies other (loss of consciousness) Resp Denies cough, Denies dyspnea and Denies dyspnea on exertion GI Denies hematochezia and Denies change in stool character Musc Denies abnormal gait, Denies muscle weakness, Denies numbness, Denies radiating pain into limb and Denies tingling Neuro Denies abnormal gait, Denies dizziness, Denies frequent falls, Denies numbness, Denies tingling and Denies weakness Endo Denies fatigue and Denies palpitations Physical Exam Vital Signs: Last Vital Signs Pulse 63 12/01/23 09:15 BP 120/80 12/01/23 09:15 BMI result Body Mass Index 31.1 Const General: cooperative, comfortable, no acute distress, alert and awake Nutritional Appearance: overweight Orientation/consciousness: patient oriented x3 Limitations: no limitations Neck Neck: Yes trachea midline, Yes supple and Yes no JVD Carotids: no bruits Resp Effort & Inspection: normal respiratory effort Auscultation: clear to auscultation bilaterally and diminished lung sounds Cardio Jugular venous distension: no JVD Palpation: normal PMI Rate: regular rate Rhythm: regular rhythm Heart sounds: S1 normal heart sound present, S2 normal heart sound present, no click, no gallops and no murmurs GI Auscultation: normal bowel sounds Skin General skin exam: no rashes or lesions noted Neuro General: patient oriented x3 and no focal motor deficits Extrem General: Yes no clubbing, cyanosis or edema Office Procedures EKG Details: EKG shows normal sinus rhythm with right bundle-branch block which is new [id number], Complete Quality Reporting (2019) Adult ([facility] 138/06/22/68) Smoking risk assessment performed?: Yes Patient Tobacco Use Status: Former Tobacco user Assessment & Plan Assessment & Plan (1) Dyspnea on exertion: Code(s): R06.09 - Other forms of dyspnea Category: Medical Plan: New onset exertional shortness of breath in this elderly gentleman with now EKG showing new right bundle-branch block. At this point time suggest to further evaluate for these symptoms and abnormal EKG. Would suggest exercise myocardial perfusion imaging near future. Also suggest an echocardiogram. This is to evaluate for myocardial ischemia as well as LV systolic and diastolic function. These tests will be scheduled in near future. Further treatment based on the findings. If these are negative then pursue pulmonary workup. (2) CAD (coronary artery disease): Comment: Drug-eluting stent to LAD, June 2016. Residual moderate disease in mid RCA and OM 2 Code(s): I25.10 - Atherosclerotic heart disease of [place] coronary artery without angina pectoris Category: Medical Plan: CAD with drug-eluting stent to the LAD remotely. Had residual disease as well. Patient currently having symptoms exertional shortness breath new right bundle- branch block. Will pursue further workup with exercise myocardial perfusion imaging. Also suggest continued medical therapy. Continue low-dose aspirin therapy for life. Continue aggressive blood pressure control which seems to be well optimized. Advised to monitor blood pressure at home maintain a log. Continue high-intensity statin therapy with LDL well optimized at this point time. Encouraged to continue to participate in regular physical activity. Will follow up in the clinic in 1 year's time, sooner p.r.n.. Thank you for allowing me to partake in his care Orders: Orders CA echo transthoracic complete Today R06.09 - Other forms of dyspnea CA stress test Today R06.09 - Other forms of dyspnea NM cardiolite stress test 2 Weeks R06.09 - Other forms of dyspnea, R07.9 - Chest pain, unspecified Coding Level of Care Code Est Pt Level 4 (14136) Diagnoses Dyspnea on exertion R06.09 CAD (coronary artery disease) I25.10 CPT Codes EKG - CPT: 97653-[id number], Complete ([id number])
[2023-12-01 09:15] VITALS: BP 120/80; PULSE 63; BMI 31.1
== END 2023-12-01 09:44 | disposition home or self-care (01) ==
PROVIDERS: PCP Internal Medicine; Visit Provider Internal Medicine Cardiovascular Disease
DX: I45.10 Unspecified right bundle-branch block (principal); Z95.810 Presence of automatic (implantable) cardiac defibrillator
CPT/HCPCS: 93010; 93295; 99214

== ENCOUNTER → 2023-12-01 09:09 | Outpatient (BNVA) | payer OTHER, SELFPAY | PROVIDERS: PCP Internal Medicine; Visit Provider Internal Medicine Cardiovascular Disease | DX: Z45.02 Encounter for adjustment and management of automatic implantable cardiac defibrillator (principal); I25.10 Atherosclerotic heart disease of native coronary artery without angina pectoris; R06.09 Other forms of dyspnea | CPT/HCPCS: 93005; 99212 ==

== ENCOUNTER 2024-02-07 16:10 | Outpatient (AMB) | payer OTHER, SELFPAY ==
--- NOTE | 2024-02-07 16:30 | MHC.PC.OV ---
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: No Accompanied by: Grand Child Allergies Penicillins [PENICILLINS] Allergy (Intermediate, Verified 02/07/24 17:06) Rash atorvastatin Adverse Reaction (Intermediate, Verified 02/07/24 17:06) elevated liver enzymes quetiapine [From SEROQUEL] Adverse Reaction (Intermediate, Verified 02/07/24 17:06) ERRATIC BEHAVIOR, NIGHTMARES,DIZZINESS Medication List - Last Reconciled 02/07/24 by Hawa Singh MD albuterol sulfate 90 mcg/actuation (Ventolin HFA) 2 puffs inhalation Q6H PRN 30 days aspirin 81 mg PO DAILY 90 days blood pressure monitor (Blood Pressure Kit) As directed cholecalciferol (vitamin D3) 25 mcg PO DAILY 90 days losartan 50 mg PO DAILY 90 days metoprolol tartrate 25 mg PO DAILY 90 days nicotine (polacrilex) 4 mg buccal Q1H 30 days rosuvastatin 40 mg PO DAILY 90 days trazodone 200 mg (2 x 100 mg) PO DAILY PRN 90 days triamcinolone acetonide 0.1% 1 appl topical DAILY 30 days Tobacco use date assessed: 07/26/23 Fall risk assessment: No Falls in past year Last assessed Fall Risk: 02/07/24 Dental Screening Dental Screen Date: 07/26/23 HPI HPI Comments History of Present Illness Details This is a 78-year-old man that comes for his physical exam accompanied by family member. No acute complaints. Declines colonoscopy, fit test or Cologuard. [facility] Medical History (Updated 02/07/24 @ 17:14 by Hawa Singh MD) Physical exam Lesion of lip Mass of lip Pre-op evaluation Obesity (BMI 30.0-34.9) Need for dental care Pre-operative clearance Left shoulder pain CVA (cerebral vascular accident) Myocardial infarction Hypovitaminosis D Mixed hyperlipidemia Right-sided lacunar infarction CAD (coronary artery disease) Dyslipidemia Hearing loss GERD (gastroesophageal reflux disease) Insomnia Essential hypertension Pernicious anemia Surgical History Hx of esophagogastroduodenoscopy Stented coronary artery Family History (Updated 02/07/24 @ 17:10 by Hawa Singh MD) Father No problems noted. Mother No problems noted. Social History Household Members: None Housing: Apartment Do you presently have visiting nurse or other home services: No Alcohol intake: never Patient Tobacco Use Status: Former Tobacco user Tobacco use type: Cigarette Cigarettes Per Day: 2 e-Cigarette/Vaping Use: Never Used Second Hand Smoke Exposure: No service: No Current occupational status: retired Cognitive needs: No Hearing needs: Yes Vision needs: No Questionnaire PHQ-9 Over the last 2 weeks, how often have you been bothered by any of the following problems? 1. Little interest or pleasure in doing things: not at all 2. Feeling down, depressed, or hopeless: not at all 3. Trouble falling or staying asleep, or sleeping too much: not at all 4. Feeling tired or having little energy: not at all 5. Poor appetite or overeating: not at all 6. Feeling bad about yourself - or that you are a failure or have let yourself or your family down: not at all 7. Trouble concentrating on things, such as reading the newspaper or watching television: not at all 8. Moving or speaking so slowly that other people could have noticed. Or the opposite - being so fidgety or restless that you have been moving around a lot more than usual: not at all 9. Thoughts that you would be better off or of hurting yourself in some way: not at all Total score: 0 Depression Screening Interpretation: Negative Depression Screening Done: Yes 25637 - PHQ-9 Billing: Yes Source: Developed by Drs. Julio Tovar, Ebonie Gutierrez, Jose Guadalupe Smith and colleagues, with an educational caio from [employer]. Thrive Questionnaire Date Thrive assessed: 07/26/23 I am a: Patient What is your living situation today?: I have a steady place to live Within the past 12 months, did the food you bought not last and you didn't have the money to get more?: Never true Within the past 12 months, did you worry whether your food would run out before you got money to buy more?: Never true Do you have trouble paying for medicines?: No Do you have trouble getting transportation to medical appointments?: No Do you have trouble paying your heating and electricity bill?: No Do you have trouble taking care of your child, family member or friend?: No Do you have trouble with day-to-day activities such as bathing, preparing meals, shopping, managing finances, etc.?: No Are you currently unemployed and looking for a job?: No Are you interested in more education?: No Please select the resources that you would like help with: None Currently or been in a relationship where the following occur: No concerns reported THRIVE Score: 0 AUDIT C Alcohol Use Questionnaire (AUDIT-C) 1. How often do you have a drink containing alcohol?: Never Total Score: 0 Score Reviewed/Action Taken: No OSMAN-7 AMB Questionnaire OSMAN-7 Date OSMAN - 7 assessed: 07/26/23 Feeling nervous, anxious, or on edge: 0 = Not at all Not being able to stop or control worryin = Not at all Worrying too much about different things: 0 = Not at all Trouble relaxin = Not at all Being so restless that it is hard to sit still: 0 = Not at all Becoming easily annoyed or irritable: 0 = Not at all Feeling afraid as if something awful might happen: 0 = Not at all Total OSMAN-7 score (0-4 normal; 5-9 mild; 10-14 moderate; 15-21 severe): 0 Source: Developed by Drs. Julio Tovar, Ebonie Gutierrez, Jose Guadalupe Smith and colleagues, with an educational caio from [employer]. OSMAN-7 Assessment Billing OSMAN-7 Assessment Tool: OSMAN-7 Assessment 85052 Review of Systems Const All systems reviewed & are unremarkable except as noted in HPI and below Card Denies chest pain at rest, Denies chest pain with activity, Denies edema, Denies irregular heart rhythm, Denies claudication, Denies dyspnea, Denies dyspnea on exertion, Denies orthopnea, Denies paroxysmal nocturnal dyspnea and Denies slow heart rate Resp Denies cough, Denies dyspnea and Denies dyspnea on exertion GI Denies abdominal pain, Denies change in bowel habits, Denies excessive flatus, Denies nausea and Denies vomiting Physical exam (Primary Care) Vital Signs: Last Vital Signs BP 140/78 H 02/07/24 16:31 BMI result Body Mass Index 31.2 Tobacco/Smoking Status: Tobacco use Status Tobacco use date assessed 07/26/23 02/07/24 16:36 Patient Tobacco Use Status Former Tobacco user 02/07/24 16:36 Tobacco use type Cigarette 02/07/24 16:36 e-Cigarette/Vaping Use Never Used 02/07/24 16:36 PHQ-9: PHQ-9 Score PHQ-9: Total score 0 02/07/24 17:16 Depression Screening Interpretation: Negative Thrive Assessment: Date of Thrive Assessment Date Thrive assessed 07/26/23 02/07/24 16:36 Currently or been in a relationship where the following occur: No concerns reported HENMT Head: Yes normal to inspection, Yes normocephalic and Yes atraumatic Ears: external ears normal Eyes General: appearance normal, both eyes and all related structures Eyelids: Yes eyelids normal Conjunctivae: conjunctivae normal Neck Neck: Yes normal visual inspection and Yes supple Resp Effort & Inspection: normal respiratory effort Auscultation: clear to auscultation bilaterally Cardio Jugular venous distension: no JVD Rate: regular rate Rhythm: regular rhythm Heart sounds: S1 normal heart sound present and S2 normal heart sound present GI Inspection: Yes normal to inspection Palpation (GI): Soft to palpation and nontender Auscultation: normal bowel sounds Skin General skin exam: no rashes or lesions noted Neuro General: no focal motor deficits Extrem General: Yes full ROM Psych Appearance: grossly normal Office Procedures Flu Questionnaire Does the patient have a severe egg allergy?: No Does the patient have severe life threatening allergies?: No Does the patient have a fever or illness today?: No Has the patient ever had Guillain-[place] Syndrome?: No Has the patient ever had any past reaction to a flu shot?: No Immunizations Fluarix Triv [id number] (PF) 45 mcg (15 mcg x 3)/0.5 mL IM syringe Performing Provider: aHwa Singh MD [facility] Administered by: LAURIE Mitchell on 02/07/24 17:19 Dose Route Admin Location Dispensed Lot Number Expiration Date [facility] Roll Cutter 0.5 mL IM Left Deltoid 0.5 mL [id number] 10/28/24 [id number] [employer] VIS Given Date VIS Provided VIS Publication Date 02/07/24 Single Vaccine 20 Eligibility Eligibility Date Funding Source Not [facility] Eligible 02/07/24 Private Coding Level of Care Code Est Pt Prev Care >65y(64903) Diagnoses Physical exam Z00.00 Additional Codes OSMAN-7 Assessment Billing - OSMAN-7 Assessment Tool: OSMAN-7 Assessment 94684 ([id number]) Time Spent (min) 30 Assessment & Plan Assessment & Plan (1) Physical exam: Code(s): Z00.00 - Encounter for general adult medical examination without abnormal findings Category: Medical Plan: Repeat in a year. Orders: Orders PSA,Total (Free>4and<10) Today R35.1 - Nocturia Lipid Panel Today E78.5 - Hyperlipidemia, unspecified Comprehensive [place]. Panel Fast Today Z00.00 - Encounter for general adult medical examination without abnormal findings Influenza [id number] Immunization Today Z23 - Encounter for immunization
[2024-02-07 16:31] VITALS: BP 140/78; BMI 31.2
== END 2024-02-07 17:22 | disposition home or self-care (01) ==
PROVIDERS: PCP Internal Medicine; Visit Provider Internal Medicine
DX: Z23 Encounter for immunization (principal); Z00.00 Encounter for general adult medical examination without abnormal findings

== ENCOUNTER → 2024-02-07 16:10 | Outpatient (BNVA) | payer OTHER, SELFPAY | PROVIDERS: PCP Internal Medicine; Visit Provider Internal Medicine | DX: Z00.01 Encounter for general adult medical examination with abnormal findings (principal); Z23 Encounter for immunization; R35.1 Nocturia; E78.5 Hyperlipidemia, unspecified | CPT/HCPCS: 90471; 90656; 96127; 99397 ==

== ENCOUNTER → 2024-02-23 12:54 | Outpatient (BNVA) | payer OTHER, SELFPAY | PROVIDERS: PCP Internal Medicine ==

== ENCOUNTER 2024-07-06 08:39 | Outpatient (REF) | payer OTHER, SELFPAY ==
--- OUTSIDE RECORDS SUMMARY | 2024-07-06 08:42 | XMS_ITS | Data Portability ---
Author Organization [employer] [facility] [employer] Address [address] [place] [id number] Care Team Providers Care Cloth Trimmer Hand Name Role Phone HIM CCA OTHER Assessment Encounter Date Assessment Date Assessment LastModified by Organization Details LastModified Time 11/16/2023 11/16/2023 I have reviewed and agree with the assessment and plan as daocumented by the compound filler. I provided real-time medical direction for this encounter and was immediately available to provide additional phone-based assistance as needed. History as noted in EMR and by compound filler. I would add / emphasize: Via the use of flight control manager. Pt complaining of SOB worsened by increased heat/hot weather. On exam unlabored resp, AVSS, afebrile, speaking full sentences. Denies resp complaints currently. Clear lungs per report. AC being installed today, No orthopnea, CP, abdominal pain, fevers. Was referred to pulmonology but patient refused stating his sxs are minor. EncourageD follow up with PCP/pulmonology. No evidence of AECHF, acute bronchoconstrict ion, infectious PNA, or PE (normal HR, BP, Spo2) no pain swelling or tenderness in the leg/calf (sciatic pain in low back). Also c/o mild exacerbation of chronic sciatica. NO bowel/bladder sxs and no trauma per report. Pt requesting pain management offered x1 of toradol. PATIENT WOULD BENEFIT FROM REINFORCEMENT OF IMPORTANCE OF OUTPATIENT PULMONOLOGY FOLLW UP. pallfather Not available 11/16/2023 10:34:25 Plan of Treatment Reminders Order Date Submit Date Provider Last Modified By Organization Details Last Modified Time Details Appointments None recorded. Lab None recorded. Referral None recorded. Procedures None recorded. Surgeries None recorded. Imaging None recorded. Medication Orders ketorolac 60 mg/2 mL intramusc ular solution 2023 024 pallfather [id number], [address] [place], [address], 4 10:16:04 Patient TargetsNo targets recorded. Patient InstructionsNo instructions recorded. Reason for Referral None Reported. Medical Equipment None Reported. Allergies Allergen ID Allergen Name Allergen Category Reaction Reaction Severity Criticality Documentation Date Start Date Code Code System Note Provider Name and Address Organization Details Recorded Time 7275 Product containin g penicilli n (product) medicatio n Not available Not available Not available 02/27/2024 53064 8001 SNOMED Not Available [facility] - production 4 03:36:14 Medications Name Sig Start Date Stop Date Status Note LastModified by Organization Details LastModified Time losartan 50 mg tablet TOME 1 TABLETA POR V A ORAL TODOS LOS D active Not Available Not Available No t Available metoprolol succinate ER 50 mg tablet,extend ed release 24 hr TAKE 1 TABLET ORALLY DAILY active Not Available Not Available No t Available bacitracin zinc 500 unit/gram topical ointment APLIQUE AL MICHELLE AFECTADA CADA OCHO HORAS POR 7 D active Not Available Not Available No t Available aspirin 81 mg tablet,delaye d release TOME 1 TABLETA POR V A ORAL TODOS LOS D active Not Available Not Available No t Available triamcinolone acetonide 0.1 % topical cream APLIQUE AL MICHELLE AFECTADA TODOS LOS D FOR 30 DAYS active Not Available Not Available No t Available trazodone 100 mg tablet TOME DOS TABLETAS POR V A ORAL A DIARIO CUANDO SEA NECESARIO EL INSOMNIO active Not Available Not Available No t Available nicotine (polacrilex) 4 mg gum CHEW 1 PIECE EVERY HOUR active Not Available Not Available N ot Available omeprazole 20 mg capsule,delay ed release TOME 1 C PSULA POR V A ORAL CADA MA SOURAV active Not Available Not Available No t Available ibuprofen 600 mg tablet TOME GREGORY TABLETA POR V A ORAL CADA OCHO HORAS CUANDO SEA NECESARIO PARA EL DOLOR active Not Available Not Available No t Available albuterol sulfate HFA 90 mcg/actuation aerosol inhaler 2 PUFF INHALED EVERY 6 HOURS NEEDED FOR SHORTNESS OF BREATH OR WHEEZING FOR 30 DAYS active Not Available Not Available No t Available doxycycline hyclate 100 mg tablet TOME GREGORY TABLETA DOS VECES AL D A POR 7 D active Not Available Not Available No t Available Vitamin D3 25 mcg (1,000 unit) capsule TAKE 1 CAPSULE BY MOUTH DAILY FOR 90 DAYS active Not Available Not Available No t Available rosuvastatin 40 mg tablet TAKE 1 TABLET BY MOUTH DAILY FOR 90 DAYS active Not Available Not Available No t Available metoprolol tartrate 25 mg tablet TOME 1 TABLETA POR V A ORAL TODOS LOS D active Not Available Not Available No t Available Flovent HFA 44 mcg/actuation aerosol inhaler INHALE UN SOPLIDO POR V A ORAL DOS VECES AL D A WITH SPACER active Not Available Not Available No t Available Vitals Date Recorded Respiratory rate Body temperature Body weight Oxygen saturation Oxygen saturation in Arterial blood by Pulse oximetry Heart rate Systolic blood pressure Diastolic blood pressure Provider Name and Address Organization Details Last Updated DateTime 4 16 /min 97.6 [degF] 91215.4 8 g 97 % 97 % 86 /min 160 mm[Hg] 98 mm[Hg] Not Available [facility] - production 4 10:04:26 Social History None recorded. Functional Status None recorded. Mental Status None recorded. Family History Nothing Reported. Medical History No medical history recorded. Past Encounters Encounter ID Performer Location Encounter Start Date Encounter Closed Date Diagnosis/Indication Diagnosis SNOMED-CT Code Diagnosis ICD10 Code Diagnosis Note [id number] Chandan Tsai MD [facility] - [facility] [phone] 11/16/2023 10:04:24 11/16/2023 16:04:47 Dyspnea 830834052 R06.00 Low back pain 101410953 M54.50 Health Concerns Section Related Observation LastModified by Organization Detai ls LastModified Time None Recorded Concern Status LastModified by Organization Details LastModified Time None Recorded Advance Directives Directive None Recorded Payers Encounter Date Sequence Insurance Name Policy Number Policy Collado Covered Member ID Collado Member ID Guarantor Name 11/16/2023 1 [facility] - DOS ON OR AFTER 2022 - DUAL ELIGIBLE - SKILLED NURSING OPTIONS AND ONE CARE (MEDICARE REPLACEMENT/AD VANTAGE - HMO) Cristino Orellana [id number] Cristino Orellana Notes Date Note Type Note Provider Name and Address Organization Details Recorded Time 11/16/2023 text/html [facility] Nurse Triage Notes (Desi Franklin): Reason For Request: Patient wants a visit on November 15, to check on breathing problems. Chief Complaints: Shortness of Breath/Dyspnea PMH: Hypertension, Heart Disease, Other Allergies: Penicillin Comments: PMH: CVA, [place], High CholesterolAllergie s: Jessi Daughter requesting visit for patient with to assess respiratory status. States he is a chronic smoker. Recently trying to stop smoking. Recent x-rays and CT scan. No results received yet. Noticed increased sob over the last few months. Referred to [facility] recently. Increased dyspnea and fatigue on exertion. Patient has a worsening cough. c/o new back pain. No known fever. Uses Albuterol for wheezing in the past. Daughter called PCP who recommended patient go to the ED due to 02 level and respirations. Patient refusing. Daughter requesting visit for tomorrow so she can be present for the visit. Member is [place] speaking. Daughter states breathing is stable currently. ................... ................... ................... ................... ................... ................... ................... ........ Remote Sensing Technician Note From Carl Arriola: Pt daughter wanted pt evaluated for sob he has been having on the really hot days. Pt denies sob on arrival. Pt denies cp , NVD , dizziness , headache. Pt sts uses inhaler 2x per day on the hot days. Pt has been referred to retail [facility] however sts he doesn? t want to go. Pt sts having some sciatica pain radiating down towards buttocks/legs. Pt using advil back pain with some relief. Baseline vitals assessed, lungs clear, afebrile, no cva tenderness. C contacted and 15mg toradol IM. Pt advised to follow up with pcp and retail banker appt. Pt education on signs indicating the ER. Remote Sensing Technician Allergies: Penicillin ................... ................... ................... ................... ................... ................... ................... ........ Disposition: Fulfilled Chandan Tsai MD [address] [facility],[address], [place], [address], ROLF - SOFIA HERNANDEZ 11/16/2023 10:34:28
[2024-07-06 11:05] LABS: Alanine Aminotransferase 57 U/L (0-40); Albumin Level 4.1 g/dL (3.5-5.0); Alkaline Phosphatase 86 U/L (39-117); Anion Gap 12 (12-20); Aspartate Amino Transferase 50 U/L (5-37); Bilirubin Total 0.3 mg/dL (0.0-1.0); Blood Urea Nitrogen 14 mg/dL (9-16); Calcium 9.1 mg/dL (8.4-10.2); Carbon Dioxide 27 mmol/L (22-29); Chloride 106 mmol/L (96-108); Cholesterol 140 mg/dL (<200); Estimated Glomerular Filt Rate > 60; Glucose Fasting 103 mg/dL (60-99); HDL Cholesterol 26 mg/dL (>40); LDL Cholesterol Calculated 37 mg/dL (<100); Potassium 4.3 mmol/L (3.3-5.1); Sodium 141 mmol/L (135-145); Total Protein 8.7 g/dL (6.5-8.0); Triglycerides 386 mg/dL (<150)
[2024-07-06 11:26] LABS: PSA,Total (Free>4and<10) 4.76 ng/mL (0.00-4.00)
[2024-07-08 11:33] LABS: Free Prostate Spec Ag 1.6 ng/mL; Percent Free Prostate Spec Ag 32 % (calc) (>25)
== END 2024-07-06 08:40 | disposition home or self-care (01) ==
LOC: HO.LAB 08:39
PROVIDERS: PCP Internal Medicine; Visit Provider Internal Medicine
DX: Z00.00 Encounter for general adult medical examination without abnormal findings (principal); E78.5 Hyperlipidemia, unspecified; R35.1 Nocturia; Z12.5 Encounter for screening for malignant neoplasm of prostate
CPT/HCPCS: 36415; 80053; 80061; 84153; 84154

== ENCOUNTER 2024-08-08 15:32 | Outpatient (AMB) | payer OTHER, SELFPAY ==
[2024-08-08 15:41] VITALS: BP 122/78; BMI 31.0
--- NOTE | 2024-08-08 15:41 | MHC.PC.OV ---
Vital Signs 08/08/24 15:41 Height 5 ft 7 in Weight 198 lb BMI 31.0 BP 122/78 Blood Pressure Location Lt brachial Position Sitting Intake Visit Reasons: bp Intake Note: Patient here for a follow up BP Retread Operator Required: No Accompanied by: Grand Child Allergies Penicillins [PENICILLINS] Allergy (Intermediate, Verified 08/08/24 15:48) Rash atorvastatin Adverse Reaction (Intermediate, Verified 08/08/24 15:48) elevated liver enzymes quetiapine [From SEROQUEL] Adverse Reaction (Intermediate, Verified 08/08/24 15:48) ERRATIC BEHAVIOR, NIGHTMARES,DIZZINESS Medication List - Last Reconciled 08/08/24 by Hawa Singh MD albuterol sulfate 90 mcg/actuation (Ventolin HFA) 2 puffs inhalation Q6H PRN 30 days aspirin 81 mg PO DAILY 90 days blood pressure monitor (Blood Pressure Kit) As directed cholecalciferol (vitamin D3) 25 mcg PO DAILY 90 days losartan 50 mg PO DAILY 90 days metoprolol tartrate 25 mg PO DAILY 90 days nicotine (polacrilex) 4 mg buccal Q1H 30 days rosuvastatin 40 mg PO DAILY 90 days trazodone 200 mg (2 x 100 mg) PO DAILY PRN 90 days triamcinolone acetonide 0.1% 1 appl topical DAILY 30 days Tobacco use date assessed: 08/08/24 Fall risk assessment: No Falls in past year Last assessed Fall Risk: 08/08/24 Dental Screening Dental Screen Date: 08/08/24 Did you have a dental visit in the last 12 months?: Yes Did you have a dental problem in the last 6 months where you did not have access to dental care?: No Was dental information given to patient?: Patient has dentist HPI HPI Comments History of Present Illness Details The patient is a 78-year-old male presenting with concerns regarding elevated blood protein levels discovered in laboratories conducted a month ago. This laboratory finding is currently under further evaluation to assess the abnormality. Additionally, the patient has a history of hyperlipidemia concerning elevated triglycerides, which has required dietary modifications to reduce the intake of fried foods and fast food. A recent elevation in prostate-specific antigen warrants attention toward possible benign prostatic hyperplasia, with future referral to urology considered for assessment. He has history of right side lacunar infarction with no residual deficit. He also manages hypertension with Losartan 50 mg and Metoprolol, while Rosuvastatin addresses cholesterol levels. The patient uses Trazodone to aid sleep and reports leg cramps, which may be a medication side effect. The patient has no recent complaints of chest pain and remains a non-smoker. Recommendations have been made to minimize dietary risks associated with hyperlipidemia due to current lifestyle factors. [facility] Medical History (Updated 08/08/24 @ 16:02 by Hawa Singh MD) Physical exam Lesion of lip Mass of lip Pre-op evaluation Obesity (BMI 30.0-34.9) Need for dental care Pre-operative clearance Left shoulder pain CVA (cerebral vascular accident) Myocardial infarction Hypovitaminosis D Mixed hyperlipidemia Right-sided lacunar infarction CAD (coronary artery disease) Dyslipidemia Hearing loss GERD (gastroesophageal reflux disease) Insomnia Essential hypertension Pernicious anemia Surgical History Hx of esophagogastroduodenoscopy Stented coronary artery Family History Father No problems noted. Mother No problems noted. Social History Household Members: None Housing: Apartment Do you presently have visiting nurse or other home services: No Alcohol intake: never Patient Tobacco Use Status: Former Tobacco user Tobacco use type: Cigarette Cigarettes Per Day: 2 e-Cigarette/Vaping Use: Never Used Second Hand Smoke Exposure: No service: No Current occupational status: retired Cognitive needs: No Hearing needs: Yes Vision needs: No Questionnaire PHQ-9 Over the last 2 weeks, how often have you been bothered by any of the following problems? 1. Little interest or pleasure in doing things: not at all 2. Feeling down, depressed, or hopeless: not at all 3. Trouble falling or staying asleep, or sleeping too much: not at all 4. Feeling tired or having little energy: not at all 5. Poor appetite or overeating: not at all 6. Feeling bad about yourself - or that you are a failure or have let yourself or your family down: not at all 7. Trouble concentrating on things, such as reading the newspaper or watching television: not at all 8. Moving or speaking so slowly that other people could have noticed. Or the opposite - being so fidgety or restless that you have been moving around a lot more than usual: not at all 9. Thoughts that you would be better off or of hurting yourself in some way: not at all Total score: 0 Depression Screening Interpretation: Negative Depression Screening Done: Yes 72575 - PHQ-9 Billing: Yes Source: Developed by Drs. Julio Tovar, Ebonie Gutierrez, Jose Guadalupe Smith and colleagues, with an educational caio from [employer]. Thrive Questionnaire Date Thrive assessed: 08/08/24 I am a: Patient What is your living situation today?: I have a steady place to live Within the past 12 months, did the food you bought not last and you didn't have the money to get more?: Never true Within the past 12 months, did you worry whether your food would run out before you got money to buy more?: Never true Do you have trouble paying for medicines?: No Do you have trouble getting transportation to medical appointments?: No Do you have trouble paying your heating and electricity bill?: No Do you have trouble taking care of your child, family member or friend?: No Do you have trouble with day-to-day activities such as bathing, preparing meals, shopping, managing finances, etc.?: No Are you currently unemployed and looking for a job?: No Are you interested in more education?: No Please select the resources that you would like help with: None Currently or been in a relationship where the following occur: No concerns reported THRIVE Score: 0 AUDIT C Alcohol Use Questionnaire (AUDIT-C) 1. How often do you have a drink containing alcohol?: Never Total Score: 0 Score Reviewed/Action Taken: No OSMAN-7 AMB Questionnaire OSMAN-7 Date OSMAN - 7 assessed: 08/08/24 Feeling nervous, anxious, or on edge: 0 = Not at all Not being able to stop or control worryin = Not at all Worrying too much about different things: 0 = Not at all Trouble relaxin = Not at all Being so restless that it is hard to sit still: 0 = Not at all Becoming easily annoyed or irritable: 0 = Not at all Feeling afraid as if something awful might happen: 0 = Not at all Total OSMAN-7 score (0-4 normal; 5-9 mild; 10-14 moderate; 15-21 severe): 0 Source: Developed by Drs. Julio Tovar, Ebonie Gutierrez, Jose Guadalupe Smith and colleagues, with an educational caio from [employer]. OSMAN-7 Assessment Billing OSMAN-7 Assessment Tool: OSMAN-7 Assessment 94245 Review of Systems Const All systems reviewed & are unremarkable except as noted in HPI and below Card Denies chest pain at rest, Denies chest pain with activity, Denies edema, Denies irregular heart rhythm, Denies claudication, Denies dyspnea, Denies dyspnea on exertion, Denies orthopnea, Denies paroxysmal nocturnal dyspnea and Denies slow heart rate Resp Denies cough, Denies dyspnea and Denies dyspnea on exertion GI Denies abdominal pain, Denies change in bowel habits, Denies excessive flatus, Denies nausea and Denies vomiting Physical exam (Primary Care) Vital Signs: Last Vital Signs BP 122/78 08/08/24 15:41 BMI result Body Mass Index 31.0 Tobacco/Smoking Status: Tobacco use Status Tobacco use date assessed 07/26/23 02/07/24 16:36 Patient Tobacco Use Status Former Tobacco user 02/07/24 16:36 Tobacco use type Cigarette 02/07/24 16:36 e-Cigarette/Vaping Use Never Used 02/07/24 16:36 Depression Screening Interpretation: Negative Thrive Assessment: Date of Thrive Assessment Date Thrive assessed 08/08/24 08/08/24 15:33 Currently or been in a relationship where the following occur: No concerns reported Resp Effort & Inspection: normal respiratory effort Auscultation: clear to auscultation bilaterally Cardio Jugular venous distension: no JVD Rate: regular rate Rhythm: regular rhythm Heart sounds: S1 normal heart sound present and S2 normal heart sound present Extrem General: Yes full ROM Coding Level of Care Code Est Pt Level 4 (11774) Complex EM visit Add On G2211 Diagnoses Elevated total protein R77.8 Chronic cough R05.3 Elevated PSA R97.20 Essential hypertension I10 Mixed hyperlipidemia E78.2 Right-sided lacunar infarction I63.81 Leg cramps R25.2 Additional Codes PHQ-9 - 08902 - PHQ-9 Billing: Yes ([id number]) OSMAN-7 Assessment Billing - OSMAN-7 Assessment Tool: OSMAN-7 Assessment 98640 ([id number]) Time Spent (min) 24 Assessment & Plan Assessment & Plan (1) Elevated total protein: Code(s): R77.8 - Other specified abnormalities of plasma proteins Category: Medical (2) Chronic cough: Code(s): R05.3 - Chronic cough Category: Medical (3) Elevated PSA: Code(s): R97.20 - Elevated prostate specific antigen [PSA] Category: Medical (4) Essential hypertension: Code(s): I10 - Essential (primary) hypertension Category: Medical (5) Mixed hyperlipidemia: Code(s): E78.2 - Mixed hyperlipidemia Category: Medical (6) Right-sided lacunar infarction: Code(s): I63.81 - Other cerebral infarction due to occlusion or stenosis of small artery Category: Medical (7) Leg cramps: Code(s): R25.2 - Cramp and spasm Category: Medical Plan I will arrange further laboratory tests to assess protein levels in the blood for any abnormalities. Dietary modifications are crucial to managing hyperlipidemia, emphasizing avoiding fried foods. Given the concerning elevation of prostate-specific antigen, I recommend a urology consultation to investigate benign prostatic hyperplasia further. Continuation of current medication regimen remains essential for hypertension, cholesterol, and insomnia, with attentiveness to managing side effects like leg cramps. Follow-up visits will help review these interventions and their outcomes. Patient was informed and verbally consented to the use of an ambient scribe for clinic note documentation during this visit. I explained to the patient the importance of addressing hyperproteinemia through additional laboratory assessments to provide clarity on the elevated levels. We discussed dietary modifications due to hyperlipidemia, focusing on reducing the triglyceride-raising impact of fried and fast food consumption. We reviewed the elevated prostate-specific antigen, leading to a recommendation for a urology consultation to evaluate possible benign prostatic hyperplasia. I discussed with the patient the significance of adhering to his current medication, noting the risk of leg cramps, potentially linked to his antihypertensives. We also discussed the continued use of Trazodone for sleep support. The patient understands the instructions and anticipatory guidance provided, including follow-up plans. Orders: Orders Protein Electrophoresis, Serum Today R77.8 - Other specified abnormalities of plasma proteins Referrals Urology Referral R97.20 - Elevated prostate specific antigen [PSA] Pulmonology Referral R05.3 - Chronic cough Medications: New magnesium oxide 400 mg PO DAILY 90 days 90 tabs 1RF Patient Instructions: - Return for laboratory testing next week to assess blood protein levels. - Avoid fried foods and fast food to help manage triglyceride levels. - Attend urology referral to investigate elevated prostate-specific antigen. - Continue current medications as prescribed. - Monitor for any changes or increased frequency of leg cramps and report if they worsen. - Follow up routinely for blood pressure and cholesterol management. - Adhere to current sleep regimen and lifestyle recommendations.
--- OUTSIDE RECORDS SUMMARY | 2024-08-08 17:46 | XMS_ITS | Data Portability ---
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 I provided real-time medical direction for this encounter and was immediately available to provide additional phone-based assistance as needed. History as noted in EMR and by supervisor blood donor recruiters. I would add / emphasize: Via the use of rn concurrent review. Pt complaining of SOB worsened by increased [...] intramusc ular solution 2023 024 [id number], [address] [place], [address], 4 10:16:04 Patient TargetsNo targets recorded. Patient InstructionsNo instructions recorded. Reason for Referral None Reported. Medical Equipment None Reported. Allergies Allergen ID Allergen Name Allergen Category Reaction Reaction Severity Criticality Documentation Date Start Date Code Code System Note Provider Name and Address Organization Details Recorded Time 7275 Product containin g penicilli n (product) medicatio n Not available Not available Not available 02/27/2024 72580 8001 SNOMED Not Available [facility] - production [...] Updated DateTime 4 16 /min 97.6 [degF] 98197.4 8 g 97 % 97 % 86 /min 160 mm[Hg] 98 mm[Hg] Not Available [facility] - production 4 10:04:26 Social History None recorded. Functional Status None recorded. Mental Status None recorded. Family History Nothing Reported. Medical History No medical history recorded. Past Encounters Encounter ID Performer Location Encounter Start Date Encounter Closed Date Diagnosis/Indication Diagnosis SNOMED-CT Code Diagnosis ICD10 Code Diagnosis Note [id number] Chandan Tsai MD [facility] - [address] [address] 11/16/2023 10:04:24 11/16/2023 16:04:47 Dyspnea 195707167 R06.00 Low back pain 195801190 M54.50 Health Concerns Section Related Observation LastModified by Organization Detai ls LastModified Time None Recorded Concern Status LastModified by Organization Details LastModified Time None Recorded Advance Directives Directive None Recorded Payers Encounter Date Sequence Insurance Name Policy Number Policy Collado Covered Member ID Collado Member ID Guarantor Name 11/16/2023 1 [facility] - DOS ON OR AFTER 2022 - DUAL ELIGIBLE - [employer] OPTIONS AND ONE CARE (MEDICARE REPLACEMENT/AD VANTAGE - HMO) Cristino Orellana [id number] Cristino Orellana Notes Date Note Type Note Provider Name and Address Organization Details Recorded Time 11/16/2023 text/html [facility] Nurse Triage Notes (Desi Franklin): Reason For Request: Patient wants a visit on November 15, to check on breathing problems. Chief Complaints: Shortness of Breath/Dyspnea PMH: Hypertension, Heart Disease, Other Allergies: Penicillin Comments: PMH: CVA, NM, High CholesterolAllergie s: Jessi Daughter requesting visit for patient with to assess respiratory status. States he is a chronic smoker. Recently trying to stop smoking. Recent x-rays and CT scan. No results received yet. Noticed increased sob over the last few months. Referred to Community Support Worker recently. Increased dyspnea and fatigue on exertion. Patient has a worsening cough. c/o new back pain. No known fever. Uses Albuterol for wheezing in the past. Daughter called PCP who recommended patient go to the ED due to 02 level and respirations. Patient refusing. Daughter requesting visit for tomorrow so she can be present for the visit. Member is Serbian speaking. Daughter states breathing is stable currently. ................... ................... ................... ................... ................... ................... ................... ........ Eyeglass Frames Polisher Note From Carl Arriola: Pt daughter wanted pt evaluated for sob he has been having on the really hot days. Pt denies sob on arrival. Pt denies cp , NVD , dizziness , headache. Pt sts uses inhaler 2x per day on the hot days. Pt has been referred to service representative however sts he doesn? t want to go. Pt sts having some sciatica pain radiating down towards buttocks/legs. Pt using advil back pain with some relief. Baseline vitals assessed, lungs clear, afebrile, no cva tenderness. C contacted and 15mg toradol IM. Pt advised to follow up with pcp and service representative appt. Pt education on signs indicating the ER. Eyeglass Frames Polisher Allergies: Penicillin ................... ................... ................... ................... ................... ................... ................... ........ Disposition: Fulfilled Chandan Tsai MD [address] [facility],[address], [place], [address], ROLF - SOFIA HERNANDEZ 11/16/2023 10:34:28
== END 2024-08-08 15:58 | disposition home or self-care (01) ==
LOC: HO.HMCH 15:33
PROVIDERS: PCP Internal Medicine; Visit Provider Internal Medicine
DX: R77.8 Other specified abnormalities of plasma proteins (principal); R05.3 Chronic cough; I63.81 Other cerebral infarction due to occlusion or stenosis of small artery; R97.20 Elevated prostate specific antigen [PSA]; I10 Essential (primary) hypertension; E78.2 Mixed hyperlipidemia; R25.2 Cramp and spasm

== ENCOUNTER → 2024-08-08 15:32 | Outpatient (BNVA) | payer OTHER, SELFPAY | PROVIDERS: PCP Internal Medicine; Visit Provider Internal Medicine | DX: R77.8 Other specified abnormalities of plasma proteins (principal); R05.3 Chronic cough; R97.20 Elevated prostate specific antigen [PSA]; R78.2 Finding of cocaine in blood; I10 Essential (primary) hypertension; I63.81 Other cerebral infarction due to occlusion or stenosis of small artery; R25.2 Cramp and spasm | CPT/HCPCS: 96127; 99212 ==

== ENCOUNTER 2024-11-29 11:17 | Emergency (ER) | payer OTHER, SELFPAY ==
--- NOTE | ~2024-11-29 | CT_ITS ---
EXAMINATION: CT ABDOMEN AND PELVIS WITH CONTRAST CLINICAL INFORMATION: Right lower quadrant pain. Left flank pain. COMPARISON: None available. TECHNIQUE: Multidetector volumetric images were obtained from the superior aspect of the liver through the pubic symphysis following administration 85 mL of Omnipaque 350 intravenous contrast. Sagittal and coronal reformatted images were obtained on the technologist's workstation. Oral contrast: No This CT examination was performed using dose optimization techniques as appropriate, variously including the following: *Automated exposure control *Adjustment of mA and/or kV according to patient size (this includes techniques or standardized protocols for targeted exams where dose is matched to indication/reason for exam; i.e. extremities or head) *Use of iterative reconstruction technique. DLP: 589 mGy centimeter. FINDINGS: Limited by patient's motion artifact. LUNG BASES: Linear attenuation right lung base. LIVER, GALLBLADDER, AND BILIARY TREE: Liver measures 13 cm. Nodular surface. No focal enhancing mass. The main portal veins and hepatic veins are patent. The intrahepatic portion of the IVC is patent. No pericholecystic fluid collection or gallbladder wall thickening. No intrahepatic or extrahepatic biliary ductal dilatation. PANCREAS: No focal lesion. No peripancreatic fluid collections. No main pancreatic ductal dilatation. Reduced volume of the pancreatic parenchyma. SPLEEN: 9 cm. No focal mass. ADRENAL GLANDS: No nodular lesions. KIDNEYS AND URETERS: No hydronephrosis. No gross nephrolithiasis. Subcentimeter cystic lesion, lower pole left kidney. BLADDER: Collapsed with the heterogeneous wall thickening. GASTROINTESTINAL TRACT: Appendix is normal. Collapsed left hemicolon. No intestinal obstruction pattern. No gross intestinal wall thickening. Decreased caliber of the distal ileal loops. No pneumatosis intestinalis. No ascites. No peripheral enhancing fluid collection in the peritoneal cavity. No pneumoperitoneum. Hiatal hernia, small to moderate volume.. ABDOMINAL WALL: No gross umbilical hernia. LYMPH NODES: Nonspecific mildly prominent lymph nodes in the retroperitoneum and periaortic iliac. VASCULAR: Mixed plaques throughout the abdominal aorta wall and iliac arteries. No gross aneurysm or dissection, abdominal aorta. Calcified plaques in the aortic valve, descending thoracic aorta and at the origin of the mesenteric arteries and main renal arteries. Vascular calcifications in the renal hilum bilaterally. Mixed plaques in the arteries of the lower extremities. PELVIC VISCERA: There is a 6 cm heterogeneously enhancing and enlarged prostate gland protruding upon the urinary bladder floor. OSSEOUS STRUCTURES: There is a 20% superior endplate compression deformity with mild sclerosis and no retropulsion at T12 vertebra. There is spondylosis at L4-5 and L5-S1. There is grade 1 anterolisthesis at L5-S1 secondary to spondylolysis pars interarticulares resulting in bilateral neuroforamina stenosis. Degenerative changes in the symphysis joints and sacroiliac joints. No acute fracture in the coxofemoral joints. CT/CT abdomen pelvis w IV con IMPRESSION: Concerning cirrhosis without ascites. Benign prostate hyperplasia versus malignancy protruding into the urinary bladder with urinary bladder wall thickening. Inflammatory versus infectious versus neoplasm should be considered. Atherosclerosis disease. Subacute to old superior endplate compression deformity at T12. 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 Subcentimeter exophytic cyst, lower pole left kidney.. Fleischner guidelines were followed. Electronically signed by: Reji Hurley MD 11/29/2024 01:38 PM EDT
--- NOTE | ~2024-11-29 | XR_ITS ---
EXAMINATION: XR CHEST CLINICAL INFORMATION: SOB COMPARISON: 2023. TECHNIQUE: Frontal view of the chest was obtained. FINDINGS: Prominence of the interstitial markings in the perihilar regions. No consolidation pleural effusion or pneumothorax. Cardiomediastinal silhouette size is normal. Calcified plaque thoracic aorta. Mild multilevel thoracic spondylosis. Degenerative changes in the acromioclavicular joint. XR/XR chest 1V IMPRESSION: Mild interstitial edema versus acute small airway inflammatory process. Electronically signed by: Reji Hurley MD 11/29/2024 12:47 PM EDT
[2024-11-29 11:24] VITALS: BP 104/54; PULSE 71; RESP 18; TEMP 36.9; O2SAT 97; BMI 30.1
--- NOTE | 2024-11-29 11:29 | ED.GENADULT ---
HPI - General Adult General Chief complaint: Urogenital-Male Stated complaint: blood in urine, back pain Time Seen by Provider: 11/29/24 11:25 Source: patient, family (Granddaughter at bedside corroborating history, acting as envelope cutter), RN notes reviewed and old records reviewed Mode of arrival: ambulatory Limitations: language barrier (Filipino-speaking, granddaughter at bedside acting as envelope cutter) History of Present Illness ED Provider: Stephanie Durham PA-C HPI narrative: 79-year-old Filipino-speaking male accompanied by granddaughter, with medical history of CVA, myocardial infarction, HLD, CAD, GERD, HTN, pernicious anemia, presents to the ED due to 1 week of difficulty urinating and bilateral lower back pain. Patient states he has had increased work of urination, needing to strain and ?push? when urinating. He states this last week he has experienced subjective fevers, chills, and dark scant urine. Patient also reports he has been experiencing some shortness of breath, which is exacerbated when it is hot outside, but denies increased of SOB during activity. Patient denies chest pain, abdominal pain, nausea, vomiting, dark/tarry stools MD complaint: B/L back pain, dysuria Related Data Previous Rx's ?Medication ?Instructions ?Recorded blood pressure monitor (Blood #1 ea 08/19/22 Pressure Kit) nicotine (polacrilex) 4 mg gum 4 mg buccal Q1H 30 days #40 ea 07/26/23 metoprolol tartrate 25 mg tablet 25 mg PO DAILY 90 days #90 tabs 04/14/24 cholecalciferol (vitamin D3) 25 25 mcg PO DAILY 90 days #90 caps 07/28/24 mcg (1,000 unit) capsule losartan 50 mg tablet 50 mg PO DAILY 90 days #90 tabs 07/28/24 rosuvastatin 40 mg tablet 40 mg PO DAILY 90 days #90 tabs 07/28/24 trazodone 100 mg tablet 200 mg (2 x 100 mg) PO DAILY PRN 07/28/24 insomnia 90 days #180 tabs magnesium oxide 400 mg PO DAILY 90 days #90 tabs 08/08/24 omeprazole 20 mg capsule,delayed 20 mg PO QAM 90 days #90 caps 09/02/24 release albuterol sulfate 90 mcg/actuation 2 puff inhalation Q6H PRN 11/10/24 aerosol inhaler (Ventolin HFA) shortness of breath or wheezing 30 days #6.7 grams aspirin 81 mg tablet,delayed 81 mg PO DAILY 90 days #90 tabs 11/10/24 release triamcinolone acetonide 0.1 % 1 appl topical DAILY 30 days #30 11/10/24 topical cream grams nitrofurantoin 100 mg PO BID 5 days #10 caps 11/29/24 monohydrate/macrocrystals 100 mg capsule (Macrobid) ondansetron HCl 4 mg tablet 4 mg PO Q8H PRN nausea and 11/29/24 vomiting #10 tabs Allergies Allergy/AdvReac Type Severity Reaction Status Date / Time Penicillins (PENICILLINS) Allergy Intermediate Rash Verified 11/29/24 11:27 atorvastatin AdvReac Intermediate elevated Verified 11/29/24 11:27 liver enzymes quetiapine (From SEROQUEL) AdvReac Intermediate ERRATIC Verified 11/29/24 11:27 BEHAVIOR, NIGHTMARES,DIZZINESS Review of Systems Review of Systems: CONST: Negative for body aches. POS fever, chills HENT: Negative for neck pain/stiffness, headache, congestion, sore throat, swelling. EYES: Negative for discharge/pain or vision changes. RESP: Negative for cough/hemoptysis and shortness of breath. POS SOB CV: Negative chest pain, difficulty breathing, palpitations. ABD: Negative pain, nausea, vomiting. : Negative increase frequency, dysuria, blood in urine or stool. POS dysuria, scant dark urine. MUSC: Negative for muscle aches, edema. POS B/L flank pain SKIN: Negative rash, lesions/sores. NEURO: Negative headache, dizziness, weakness. Yes all other systems are reviewed and are negative [facility] Past Medical History Attestation statement: The following information was validated with the patient. Source: old records reviewed, obtained from family (Granddaughter at bedside corroborating history) and nursing notes reviewed Medical History Physical exam Lesion of lip Mass of lip Pre-op evaluation Obesity (BMI 30.0-34.9) Need for dental care Pre-operative clearance Left shoulder pain CVA (cerebral vascular accident) Myocardial infarction Hypovitaminosis D Mixed hyperlipidemia Right-sided lacunar infarction CAD (coronary artery disease) Dyslipidemia Hearing loss GERD (gastroesophageal reflux disease) Insomnia Essential hypertension Pernicious anemia Surgical History Hx of esophagogastroduodenoscopy Stented coronary artery Family History Family History Father No problems noted. Mother No problems noted. Social History Social History Household Members: None Housing: Apartment Do you presently have visiting nurse or other home services: No Alcohol intake: never Patient Tobacco Use Status: Former Tobacco user Tobacco use type: Cigarette Cigarettes Per Day: 2 e-Cigarette/Vaping Use: Never Used Second Hand Smoke Exposure: No Advance Directives: No Advance Directives Information Provided: Yes service: No Current occupational status: retired Cognitive needs: No Hearing needs: Yes Vision needs: No Physical Exam ED Vital Signs: Vital Signs - 24 hr 11/29/24 11:24 11/29/24 13:41 Temperature 98.5 F Pulse Rate 71 67 Respiratory Rate 18 16 Blood Pressure 104/54 L 143/67 H Pulse Oximetry 97 95 Oxygen Delivery Method Room Air BMI result Body Mass Index 30.1 GENERAL APPEARANCE: ?AxOx4, no acute distress. HEENT: ?NC, AT. MMM. EOMI, clear conjunctiva, oropharynx clear. NECK: ?Supple without lymphadenopathy.? No stiffness or restricted ROM. HEART:? Normal rate and regular rhythm, normal S1/S2, no m/r/g LUNGS:? Diminished lung sounds throughout all lung magana ABDOMEN: Abdomen mildly distended, no rigidity, TTP RLQ, suprapubic region, no overlying skin changes BACK: B/L CVAT L>R, no midline spine tenderness, no bony step-offs EXTREMITIES: ?Without cyanosis, clubbing or edema. NEUROLOGICAL: ?Grossly nonfocal. Alert and oriented, moving all 4 extremities. Observed to ambulate with normal gait. Skin: ?Warm and dry without any rash. Medications Administered Discontinued Medications Generic Name Dose Route Start Last Admin Trade Name Freq PRN Reason Stop Dose Admin Acetaminophen 1,000 mg in 100 mls @ 400 mls/hr 11/29/24 11:40 11/29/24 13:11 Ofirmev IV 11/29/24 11:54 Infused ONCE ONE Infusion Lactated Ringer's 1,000 mls @ 999 mls/hr 11/29/24 13:20 11/29/24 13:40 Lr IV 11/29/24 14:20 999 mls/hr .Q1H1M ONE Administration Ciprofloxacin 400 mg in 200 mls @ 200 mls/hr 11/29/24 15:16 11/29/24 16:24 Cipro IV 11/29/24 16:15 200 mls/hr ONCE ONE Administration Iohexol 85 ml 11/29/24 13:04 11/29/24 13:05 Iohexol 350 Mg/Ml 100 Ml Infus..Btl IV 11/29/24 13:05 85 ml ONCE ONE Administration Morphine Sulfate 4 mg 11/29/24 13:20 11/29/24 13:40 Morphine Sulfate 4 Mg/Ml Cartridge IVPUSH 11/29/24 13:21 4 mg ONCE ONE Administration Protocol Ondansetron HCl 4 mg 11/29/24 15:54 11/29/24 16:22 Ondansetron Hcl 4 Mg/2 Ml Vial IVPUSH 11/29/24 15:55 4 mg ONCE ONE Administration Medical Decision Making Medical Decision Making MDM Narrative: 79-year-old Filipino-speaking male accompanied by granddaughter, with medical history of CVA, myocardial infarction, HLD, CAD, GERD, HTN, pernicious anemia, presents to the ED due to 1 week of difficulty urinating and bilateral lower back pain. Patient states he has had increased work of urination, needing to strain and ?push? when urinating. He states this last week he has experienced subjective fevers, chills, and dark scant urine. Patient also reports he has been experiencing some shortness of breath, which is exacerbated when it is hot outside, but denies increased of SOB during activity. VSS, BP 104/54, pulse rate 71 beats per minute, oral temp is 98.5?, O2 saturation 97% on room air. Physical exam reveals diminished breath sounds across all lung magana, Abdomen mildly distended, no rigidity, TTP RLQ, suprapubic region, no overlying skin changes, B/L CVAT L>R, no midline spine tenderness, no bony step-offs Plan for labs, EKG, PVR bladder scan, UA, CXR, CT abdomen/pelvis for obstructive pathology Course 12:29- EKG reveals normal sinus rhythm with RBBB. patient attempted to urinate, scant urine produced. PVR bladder scan reveals 28 mL of retained urine. Nurse placed straight cath, with coude for sample which did not provide enough urine for sample. Awaiting CT abdomen and pelvis to observe for obstructive pathology. 14:45- labs reveal leukocytosis, hgb- 12.8, hct- 37.4, elevated creatinine at 1.56. UA reveals 2+ urine protein, 2+ urine blood, trace leukocyte esterase, urine RBC greater than 20/HPF, urine WBC greater than 50/HPF, 0-2 squamous epithelial cells, 0-2 hyaline casts, without urine bacteria. CXR reveals prominence of the interstitial markings in the perihilar regions, questioning mild interstitial edema versus acute small airway inflammatory process. Patient with chronic asthma, no cough, states SOB is increased in the heat, which he states has resolved since temperature has cooled down, patient using albuterol pump at home with good effect- less likely acute small airway inflammation. CT abdomen and pelvis reveals cirrhosis without ascites, BPH versus malignancy protruding into the urinary bladder with urinary bladder wall thickening. Inflammatory versus infectious versus neoplasm should be considered. Atherosclerosis disease, subacute to old superior endplate compression deformity at T12, grade 1 anterolisthesis at L5-S1 secondary to spondylosis, subcentimeter exophytic cyst of the lower pole left kidney. I reached out to urologist Dr. Ruelas for recommendations on the patient, who suggested 1 dose 400 mg IV ciprofloxacin, 5 days Macrobid 100 b.i.d., with outpatient urology follow-up. I counseled the patient and his family members at bedside on the findings of the CT scan, and plan for antibiotics. Family and patient are in agreement of the plan. 15:57- patient endorsing nausea, we will medicate with 4 mg IV Zofran. 17:20- Zofran with good effect. Patient finishing up IV ciprofloxacin, we will discharge home for self-care and Urology follow up. Differential Diagnosis Differential Diagnoses: The differential diagnosis associated with the presentation includes Bladder cancer BPH Nephrolithiasis Renal colic Lumbar strain Admission/Observation Consideration of admission/observation: Escalation of care including admission/observation considered Lab Data MDM Lab Attestation statement: I reviewed the patient's lab results. 11/29/24 11:55 11/29/24 11:55 Labs: Lab Results 11/29/24 11/29/24 11/29/24 Range/Units 11:55 13:35 16:43 WBC 14.2 H (4.8-10.8) X10*3/uL RBC 3.93 L (4.60-5.80) X10*6/uL Hgb 12.8 L (14.0-18.0) g/dl Hct 37.4 L (42.0-52.0) % MCV 95.2 (80.0-98.0) fL MCH 32.6 (27.0-33.0) pg MCHC 34.2 (31.0-36.0) g/dl RDW 13.0 (11.0-16.0) % Plt Count 241 (160-400) X10*3/uL MPV 10.0 (9.4-12.4) fL Immature Gran % (Auto) 0.6 H (0.0-0.4) % Neut % (Auto) 78.4 H (45-73) % Lymph % (Auto) 11.5 L (20-40) % [place] % (Auto) 8.9 (2-11) % Eos % (Auto) 0.2 (0-4) % Baso % (Auto) 0.4 (0-2) % Lymph # (Auto) 1.6 (1.2-4.9) X10*3/uL [place] # (Auto) 1.3 H (0.1-1.2) X10*3/uL Eos # (Auto) 0.0 (0.0-0.4) X10*3/uL Baso # (Auto) 0.1 (0.0-0.2) X10*3/uL Abs Immat Gran (auto) 0.09 H (0.00-0.03) X10*3/uL Absolute Neuts (auto) 11.1 H (2.0-8.3) x10*3/uL Absolute Nucleated RBC 0.000 (0.0-0.012) X10*3/uL Nucleated RBC % (auto) 0.0 (0.0-0.2) /100WBC Sodium 136 (135-145) mmol/L Potassium 4.4 (3.3-5.1) mmol/L Chloride 102 (96-108) mmol/L Carbon Dioxide 24 (22-29) mmol/L Anion Gap 14 (12-20) BUN 17 H (9-16) mg/dL Creatinine 1.56 H (0.5-1.4) mg/dL Estim Creat Clear Calc 40.5 Estimated GFR 43 Random Glucose 111 (60-115) mg/dL Calcium 9.2 (8.4-10.2) mg/dL Magnesium 2.0 (1.6-2.6) mg/dL Total Bilirubin 1.3 H (0.0-1.0) mg/dL AST 40 H (5-37) U/L ALT 26 (0-40) U/L Alkaline Phosphatase 80 (39-117) U/L Troponin I High Sens 12.8 18.7 (<3.5-35.0) ng/L Total Protein 8.4 H (6.5-8.0) g/dL Albumin 4.1 (3.5-5.0) g/dL Urine Color Dark Yellow Urine Appearance Clear Urine pH 6.5 (5.0-9.0) Ur Specific [place] >= 1.030 H (1.005-1.025) Urine Protein 100 (2+) H (Neg-Trace) mg/dL Urine Glucose (UA) Negative (Negative) mg/dL Urine Ketones Trace (Negative) mg/dL Urine Blood Moderate (2+) H (Negative) Urine Nitrite Negative (Negative) Ur Leukocyte Esterase Trace H (Negative) Urine RBC >20 H (0-2) /HPF Urine WBC >50 H (0-5) /HPF Ur Squamous Epith Cells 0-2 (0-2) /HPF Urine Bacteria None Seen (None Seen) Hyaline Casts 0-2 (0-2) /LPF Independent Interpretation I performed an independent interpretation of an: EKG Interpretation: I personally interpreted the EKG which reveals normal sinus rhythm, right bundle-branch block without ST elevation/depression/T-wave abnormality Vent. Rate : 68 BPM Atrial Rate : 68 BPM P-R Int : 170 ms QRS Dur : 136 ms QT Int : 406 ms P-R-T Axes : 105 55 34 degrees QTcB Int : 431 ms Normal sinus rhythm Right bundle branch block Abnormal ECG When compared with ECG of 18-May-2022 08:56, Right bundle branch block is now Present CXR Prominence of the interstitial markings in the perihilar regions. No consolidation pleural effusion or pneumothorax. Cardiomediastinal silhouette size is normal. Calcified plaque thoracic aorta. Mild multilevel thoracic spondylosis. Degenerative changes in the acromioclavicular joint. XR/XR chest 1V IMPRESSION: Mild interstitial edema versus acute small airway inflammatory process. Electronically signed by: Reji Hurley MD 11/29/2024 12:47 PM EDT RP Dictated By: Reji Rocha MD Signed By: <Electronically signed by Reji Scherer MD in OV> 11/29/24 1247 Radiology Impression Discussion of test interpretation with radiology: I have reviewed the radiologist's reading. Radiologist Impression: CXR Prominence of the interstitial markings in the perihilar regions. No consolidation pleural effusion or pneumothorax. Cardiomediastinal silhouette size is normal. Calcified plaque thoracic aorta. Mild multilevel thoracic spondylosis. Degenerative changes in the acromioclavicular joint. XR/XR chest 1V IMPRESSION: Mild interstitial edema versus acute small airway inflammatory process. Electronically signed by: Reji Hurley MD 11/29/2024 12:47 PM EDT RP Dictated By: Reji Rocha MD Signed By: <Electronically signed by Reji Scherer MD in [place]> 11/29/[address] abdomen/pelvis FINDINGS: Limited by patient's motion artifact. LUNG BASES: Linear attenuation right lung base. LIVER, GALLBLADDER, AND BILIARY TREE: Liver measures 13 cm. Nodular surface. No focal enhancing mass. The main portal veins and hepatic veins are patent. The intrahepatic portion of the IVC is patent. No pericholecystic fluid collection or gallbladder wall thickening. No intrahepatic or extrahepatic biliary ductal dilatation. PANCREAS: No focal lesion. No peripancreatic fluid collections. No main pancreatic ductal dilatation. Reduced volume of the pancreatic parenchyma. SPLEEN: 9 cm. No focal mass. ADRENAL GLANDS: No nodular lesions. KIDNEYS AND URETERS: No hydronephrosis. No gross nephrolithiasis. Subcentimeter cystic lesion, lower pole left kidney. BLADDER: Collapsed with the heterogeneous wall thickening. GASTROINTESTINAL TRACT: Appendix is normal. Collapsed left hemicolon. No intestinal obstruction pattern. No gross intestinal wall thickening. Decreased caliber of the distal ileal loops. No pneumatosis intestinalis. No ascites. No peripheral enhancing fluid collection in the peritoneal cavity. No pneumoperitoneum. Hiatal hernia, small to moderate volume.. ABDOMINAL WALL: No gross umbilical hernia. LYMPH NODES: Nonspecific mildly prominent lymph nodes in the retroperitoneum and periaortic iliac. VASCULAR: Mixed plaques throughout the abdominal aorta wall and iliac arteries. No gross aneurysm or dissection, abdominal aorta. Calcified plaques in the aortic valve, descending thoracic aorta and at the origin of the mesenteric arteries and main renal arteries. Vascular calcifications in the renal hilum bilaterally. Mixed plaques in the arteries of the lower extremities. PELVIC VISCERA: There is a 6 cm heterogeneously enhancing and enlarged prostate gland protruding upon the urinary bladder floor. OSSEOUS STRUCTURES: There is a 20% superior endplate compression deformity with mild sclerosis and no retropulsion at T12 vertebra. There is spondylosis at L4-5 and L5-S1. There is grade 1 anterolisthesis at L5-S1 secondary to spondylolysis pars interarticulares resulting in bilateral neuroforamina stenosis. Degenerative changes in the symphysis joints and sacroiliac joints. No acute fracture in the coxofemoral joints. CT/CT abdomen pelvis w IV con IMPRESSION: Concerning cirrhosis without ascites. Benign prostate hyperplasia versus malignancy protruding into the urinary bladder with urinary bladder wall thickening. Inflammatory versus infectious versus neoplasm should be considered. Atherosclerosis disease. Subacute to old superior endplate compression deformity at T12. 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 Subcentimeter exophytic cyst, lower pole left kidney.. Fleischner guidelines were followed. Electronically signed by: Reji Hurley MD 11/29/2024 01:38 PM EDT Dictated By: Reji Rocha MD Signed By: <Electronically signed by Reji Scherer MD in OV> 11/29/24 1338 DD/ 1258 Independent Historian Clinical information obtained from an independent historian. History obtained from or confirmed by: Other (Granddaughter, grandson, daughter at bedside corroborating history) External Record Review External record reviewed: Inpatient record, Office record and Outpatient record Discharge Plan Discharge Clinical Impression: Blood in urine, UTI (urinary tract infection) Patient Disposition: Home, Self-Care Additional Instructions: You were evaluated in the ED today due to flank pain, and blood in the urine. The CT imaging of your abdomen and pelvis revealed possible benign prostatic hyperplasia, possible infection due to bladder wall thickening, cirrhosis of the liver, and a cyst on the left kidney. I discussed your case with [facility] urologist Dr. Ruelas who recommended treatment with antibiotics IV ciprofloxacin, Macrobid for 5 days, and outpatient follow-up. While in the department you were medicated with 400 mg IV ciprofloxacin, IV fluids, 4 mg IV Zofran for nausea, and 4 mg morphine for pain management. You will be prescribed a 5 day course of Macrobid which is an antibiotic to cover for urinary tract infection, and zofran for nausea. Please finish the course of antibiotics. To control your pain, you can take 500 mg of Tylenol every 8 hours, this is safe for you to take even with your cirrhosis. [facility] Urology will be contacting you within 2 business?days after being discharged from the Emergency?Department.? During this?phone call, they will inform you when your follow up appointment will be scheduled. If you have not received a call from [facility] Urology after 2 business?days, please call the?office at [phone]. Please return to the emergency department if you experience fevers over 100.4?, chills, abdominal pain, increased back pain, increased difficulty urinating, no urine production, or any new/concerning/worsening symptoms. Prescriptions: New nitrofurantoin monohyd/m-cryst [Macrobid] 100 mg capsule 100 mg PO BID 5 Days Qty: 10 0RF Rx Instructions: must administer with a meal/food ondansetron HCl 4 mg tablet 4 mg PO Q8H PRN (Reason: nausea and vomiting) Qty: 10 0RF No Action (DME) blood pressure monitor [Blood Pressure Kit] Kit See Rx Instructions .Route Qty: 1 0RF Rx Instructions: As directed metoprolol tartrate 25 mg tablet 25 mg PO DAILY 90 Days Qty: 90 1RF losartan 50 mg tablet 50 mg PO DAILY 90 Days Qty: 90 1RF rosuvastatin 40 mg tablet 40 mg PO DAILY 90 Days Qty: 90 3RF cholecalciferol (vitamin D3) 25 mcg (1,000 unit) capsule 25 mcg PO DAILY 90 Days Qty: 90 3RF trazodone 100 mg tablet 200 mg PO DAILY PRN (Reason: insomnia) 90 Days Qty: 180 3RF omeprazole 20 mg capsule,delayed release(DR/EC) 20 mg PO QAM 90 Days Qty: 90 2RF triamcinolone acetonide 0.1 % cream 1 appl topical DAILY 30 Days Qty: 30 0RF aspirin 81 mg tablet,delayed release (DR/EC) 81 mg PO DAILY 90 Days Qty: 90 1RF albuterol sulfate [Ventolin HFA] 90 mcg/actuation HFA aerosol inhaler 2 puff inhalation Q6H PRN (Reason: shortness of breath or wheezing) 30 Days Qty: 6.7 2RF nicotine (polacrilex) 4 mg gum 4 mg buccal Q1H 30 Days Qty: 40 11RF magnesium oxide 400 mg magnesium tablet 400 mg PO DAILY 90 Days Qty: 90 1RF Referrals: [facility] Urology Services [Provider Group, Urology] Referral Note: abnormal CT findings Clinical Impression: UTI (urinary tract infection); Blood in urine Print Language: Ukrainian
--- NOTE | 2024-11-29 11:39 | ECG_ITS ---
Test Reason : Blood Pressure : */* mmHG Vent. Rate : 68 BPM Atrial Rate : 68 BPM P-R Int : 170 ms QRS Dur : 136 ms QT Int : 406 ms P-R-T Axes : 105 55 34 degrees QTcB Int : 431 ms Normal sinus rhythm Right bundle branch block Abnormal ECG When compared with ECG of 18-May-2022 08:56, Right bundle branch block is now Present Referred By: Marva Brown Electronically Signed By: BRYANT VILLALOBOS MD
[2024-11-29 12:00] LABS: MANUAL DIFF FLAG NO
[2024-11-29 12:03] LABS: Hematocrit 37.4 % (42.0-52.0); Hemoglobin 12.8 g/dl (14.0-18.0); Imm Gran Abs Auto 0.09 X10*3/uL (0.00-0.03); Imm Gran Pct Auto 0.6 % (0.0-0.4); Lymphocytes Absolute Auto 1.6 X10*3/uL (1.2-4.9); Mean Corpuscular HGB Conc 34.2 g/dl (31.0-36.0); Mean Corpuscular Hemoglobin 32.6 pg (27.0-33.0); Mean Corpuscular Volume 95.2 fL (80.0-98.0); NRBC Abs Auto 0.000 X10*3/uL (0.0-0.012); NRBC Pct Auto 0.0 /100WBC (0.0-0.2); Platelet Count 241 X10*3/uL (160-400); Red Blood Count 3.93 X10*6/uL (4.60-5.80); White Blood Count 14.2 X10*3/uL (4.8-10.8)
--- OUTSIDE RECORDS SUMMARY | 2024-11-29 12:17 | XMS_ITS | Patient Health Record ---
Author Organization [facility] Address [address] [place] [id number] Care Team Providers Care Group Art Supervisor Name Role Phone Hawa Chatman Primary Care Provider Julio Vieyra [phone] Allergies Allergen (clinical drug ingredient) Drug/Non Drug Allergy documented on EMR Reaction Allergy Type Onset Date Status Penicillin Unknown Drug Allergy Active Reason For Referral No Information Medications Medication SIG (Take, Route, Fr equency, Duration) Notes Start Date End Date Status Antibiotic Active Omeprazole 20 MG 1 capsule Orally Once a day Active traZODone HCl 100 MG TOME DOS TABLETAS T ODOS [place] FOR 30 DAYS Oral for 30 Act marleni Vitamin B Complex Ac tive Lisinopril 40 MG TOME GREGORY TABLETA TOD OS [place] Oral for 30 Active Problems Problem Type SNOMED Code ICD Code Onset Dates Problem Status W/U Status Risk Notes Problem 59471113 Esophageal stricture (K22.2) Active confirmed Problem [id number] GERD with esophagitis (K21.0) Active confirmed Plan Of Treatment Future Test Test Name Order Date UPPER GI ENDOSCOPY [place] DILATION OF ESOPH 08/05/2014 Insurance Providers Payer Name Payer Address Payer Phone Subscriber Number Group Number Insured Name Patient Relationship to Insured Coverage Start Date Coverage End Date [facility] [address] [place] [address] [phone] [id number] SRAVAN MCHUGH Self - patient is the insured Medical (General) History Medical History History ICD Code Denies DC,DM,CVA,Lung disease,renal dise ase Reports a negative colonoscopy at [facility] in approx 2009 HTN Barium Swallow in 05/02/2014-distal esopha geal narrowing--? ring vs. mass GERD and esophageal strictur e--upper endoscopy in July 2014 revealed erosive esophagitis and an esophageal stricture, which was dilated up to a 16 mm balloon--he was started on omeprazole at that time; a followup endoscopy in October of 2014 revealed healing of the esophagitis and a more patent esophageal stricture--this was dilated up to an 18 mm balloon at that time--biopsies were negative for Mario's esophagus Surgical History Surgery Date(Month/Year) Salivary gland surgery
[2024-11-29 12:42] LABS: Troponin-I High Sensitivity 12.8 ng/L (<3.5-35.0)
[2024-11-29 12:50] LABS: Alanine Aminotransferase 26 U/L (0-40); Albumin Level 4.1 g/dL (3.5-5.0); Alkaline Phosphatase 80 U/L (39-117); Anion Gap 14 (12-20); Aspartate Amino Transferase 40 U/L (5-37); Blood Urea Nitrogen 17 mg/dL (9-16); Calcium 9.2 mg/dL (8.4-10.2); Carbon Dioxide 24 mmol/L (22-29); Chloride 102 mmol/L (96-108); Creatinine Clr Calc Pharmacy 40.5; Estimated Glomerular Filt Rate 43; Magnesium 2.0 mg/dL (1.6-2.6); Potassium 4.4 mmol/L (3.3-5.1); Sodium 136 mmol/L (135-145); Total Protein 8.4 g/dL (6.5-8.0)
[2024-11-29] MEDS: iohexoL 350 MG/ML 100 ML INFUS..BTL 85 ML IV (13:05)
[2024-11-29] MEDS: Lactated Ringers 1,000 ML 999 ML IV (13:40)
[2024-11-29 13:41] VITALS: BP 143/67; PULSE 67; RESP 16; O2SAT 95
[2024-11-29 13:43] LABS: Appearance Urine Clear; Glucose Urine UA Negative (Negative); PH 6.5 (5.0-9.0); Specific Gravity - Urine >= 1.030 (1.005-1.025); UMIC TRIGGER UACC YES
[2024-11-29 13:53] LABS: UACC Culture Trigger YES
--- NOTE | 2024-11-29 14:27 | PC.NURSE ---
Patient has been getting up to urinate multiple times since he was straight cathed.
[2024-11-29 17:11] LABS: Troponin-I High Sensitivity 18.7 ng/L (<3.5-35.0)
[2024-11-29 17:22] VITALS: BP 136/56; PULSE 60; RESP 16; O2SAT 95
[2024-11-29 17:59] VITALS: BP 136/56; PULSE 60; RESP 16; TEMP 36.4; O2SAT 95
== END 2024-11-29 17:59 | disposition home or self-care (01) ==
PROVIDERS: Emergency Provider Emergency Medicine Emergency Medical Services; PCP Internal Medicine
DX: N39.0 Urinary tract infection, site not specified (principal); R31.9 Hematuria, unspecified; R39.198 Other difficulties with micturition; M54.50 Low back pain, unspecified; I25.2 Old myocardial infarction; E78.5 Hyperlipidemia, unspecified; I25.10 Atherosclerotic heart disease of native coronary artery without angina pectoris; I10 Essential (primary) hypertension; K21.9 Gastro-esophageal reflux disease without esophagitis
CPT/HCPCS: 36415; 71045; 74177; 80053; 81001; 83735; 84484; 85025; 87086; 93005; 96361; 96374; 96375; 99285; J0131; J0744; J2270; J2405; J7120; Q9967

== ENCOUNTER → 2024-11-29 11:35 | Outpatient (BNV) | payer OTHER, SELFPAY | PROVIDERS: Emergency Provider Emergency Medicine Emergency Medical Services; PCP Internal Medicine; Visit Provider Radiology Diagnostic Radiology | DX: N28.1 Cyst of kidney, acquired (principal); I70.90 Unspecified atherosclerosis; R05.1 Acute cough | CPT/HCPCS: 71045; 74177 ==

== ENCOUNTER → 2024-11-29 11:39 | Outpatient (BNV) | payer OTHER, SELFPAY | PROVIDERS: Emergency Provider Emergency Medicine Emergency Medical Services; PCP Internal Medicine; Visit Provider Internal Medicine Cardiovascular Disease | DX: I45.10 Unspecified right bundle-branch block (principal) | CPT/HCPCS: 93010 ==

== ENCOUNTER 2025-01-03 11:06 | Outpatient (AMB) | payer OTHER, SELFPAY ==
[2025-01-03 11:08] VITALS: BP 116/74; PULSE 63; BMI 30.4
--- NOTE | 2025-01-03 11:08 | MHC.OFFVIS ---
Vital Signs 01/03/25 11:08 Height 5 ft 7 in Weight 194 lb 0.108 oz BMI 30.4 BP 116/74 Blood Pressure Location Lt brachial Position Sitting Pulse 63 Intake Visit Reasons: 1 year fu (rs) Intake Note: 1 year follow-up had ekg last month feeling good Tuber Operator Required: Yes Tuber Operator Services: Tuber Operator Offered & Declined Gamemaster: Gamemaster Present Accompanied by: Grand Child Allergies Penicillins (PENICILLINS) Allergy (Intermediate, Verified 11/29/24 11:27) Rash atorvastatin Adverse Reaction (Intermediate, Verified 11/29/24 11:27) elevated liver enzymes quetiapine (From SEROQUEL) Adverse Reaction (Intermediate, Verified 11/29/24 11:27) ERRATIC BEHAVIOR, NIGHTMARES,DIZZINESS Medication List - Last Reconciled 01/03/25 by David Hernandez MD albuterol sulfate 90 mcg/actuation (Ventolin HFA) 2 puffs inhalation Q6H PRN 30 days aspirin 81 mg PO DAILY 90 days blood pressure monitor (Blood Pressure Kit) As directed cholecalciferol (vitamin D3) 25 mcg PO DAILY 90 days finasteride (Proscar) 5 mg PO DAILY 30 days losartan 50 mg PO DAILY 90 days magnesium oxide 400 mg PO DAILY 90 days metoprolol tartrate 25 mg PO DAILY 90 days omeprazole 20 mg PO QAM 90 days ondansetron HCl 4 mg PO Q8H PRN rosuvastatin 40 mg PO DAILY 90 days trazodone 200 mg (2 x 100 mg) PO DAILY PRN 90 days triamcinolone acetonide 0.1% 1 appl topical DAILY 30 days HPI Comments Details: Cristino comes for follow-up, accompanied by his grandson who is a certified food service kitchen supervisor for him. Patient says since I last saw him he has stopped smoking and feels a lot better. His shortness of breath has improved significantly. 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 He otherwise does his usual activities without limitations. Denies any orthopnea, PND, leg edema. Denies any exertional chest pain. No prolonged palpitation irregular heartbeat. Last LDL was well optimized. [facility] Medical History Physical exam Lesion of lip Mass of lip Pre-op evaluation Obesity (BMI 30.0-34.9) Need for dental care Pre-operative clearance Left shoulder pain CVA (cerebral vascular accident) Myocardial infarction Hypovitaminosis D Mixed hyperlipidemia Right-sided lacunar infarction CAD (coronary artery disease) Dyslipidemia Hearing loss GERD (gastroesophageal reflux disease) Insomnia Essential hypertension Pernicious anemia Surgical History Hx of esophagogastroduodenoscopy Stented coronary artery Family History Father No problems noted. Mother No problems noted. Social History Household Members: None Housing: Apartment Do you presently have visiting nurse or other home services: No Alcohol intake: never Patient Tobacco Use Status: Former Tobacco user Tobacco use type: Cigarette Cigarettes Per Day: 2 e-Cigarette/Vaping Use: Never Used Second Hand Smoke Exposure: No service: No Current occupational status: retired Cognitive needs: No Hearing needs: Yes Vision needs: No Review of Systems Const Denies chills, Denies fatigue, Denies fever(s), Denies frequent falls, Denies weakness, Denies weight gain and Denies weight loss ENT Denies dizziness Card Denies chest pain, Denies leg edema, Denies lightheadedness, Denies palpitations, Denies dyspnea, Denies dyspnea on exertion, Denies orthopnea and Denies other (loss of consciousness) Resp Denies cough, Denies dyspnea and Denies dyspnea on exertion GI Denies hematochezia and Denies change in stool character Musc Denies abnormal gait, Denies muscle weakness, Denies numbness, Denies radiating pain into limb and Denies tingling Neuro Denies abnormal gait, Denies dizziness, Denies frequent falls, Denies numbness, Denies tingling and Denies weakness Endo Denies fatigue and Denies palpitations Physical Exam Vital Signs: Last Vital Signs Pulse 63 01/03/25 11:08 BP 116/74 01/03/25 11:08 BMI result Body Mass Index 30.4 Const General: cooperative, comfortable, no acute distress, alert and awake Nutritional Appearance: overweight Orientation/consciousness: patient oriented x3 Limitations: no limitations Neck Neck: Yes trachea midline, Yes supple and Yes no JVD Carotids: no bruits Resp Effort & Inspection: normal respiratory effort Auscultation: clear to auscultation bilaterally and diminished lung sounds Cardio Jugular venous distension: no JVD Palpation: normal PMI Rate: regular rate Rhythm: regular rhythm Heart sounds: S1 normal heart sound present, S2 normal heart sound present, no click, no gallops and no murmurs GI Auscultation: normal bowel sounds Skin General skin exam: no rashes or lesions noted Neuro General: patient oriented x3 and no focal motor deficits Extrem General: Yes no clubbing, cyanosis or edema Assessment & Plan Assessment & Plan (1) CAD (coronary artery disease): Comment: Drug-eluting stent to LAD, June 2016. Residual moderate disease in mid RCA and OM 2 Code(s): I25.10 - Atherosclerotic heart disease of [place] coronary artery without angina pectoris Category: Medical Plan: Stable CAD which has remained without any symptoms. His shortness of breath has improved after stopping smoking suggesting that this might be more related to pulmonary bronchospastic airway disease. He is functional status is adequate. He is advised to call me with any new symptoms. Encouraged to maintain activity level as tolerated. Advised to maintain lifelong aspirin therapy. Continue high-intensity statin therapy with well optimized LDL level. Continue aggressive blood pressure management see below. (2) Essential hypertension: Code(s): I10 - Essential (primary) hypertension Category: Medical Plan: Blood pressure which is currently well controlled on current losartan and metoprolol therapy. Importance of good blood pressure control was discussed advised to monitor blood pressure at home maintain a log. Goal blood pressure less than 130/84. Low-salt diet was discussed. He understands agrees. Will follow up in the clinic in 1 year's time, sooner p.r.n.. Thank you for allowing me to partake in his care Coding Level of Care Code Est Pt Level 4 (95080) Complex EM visit Add On G2211 Diagnoses CAD (coronary artery disease) I25.10 Essential hypertension I10
--- OUTSIDE RECORDS SUMMARY | 2025-01-03 12:13 | XMS_ITS | Patient Health Record ---
Author Organization [facility] Address [address] [place] [id number] Care Team Providers Care Food Bagging Machine Operator Name Role Phone Hawa Chatman Primary Care Provider Julio Vieyra [phone] Allergies Allergen (clinical drug ingredient) Drug/Non Drug Allergy documented on EMR Reaction Allergy Type Onset Date Status Penicillin Unknown Drug Allergy Active Reason For Referral No Information Medications Medication SIG (Take, Route, Fr equency, Duration) Notes Start Date End Date Status Antibiotic Active Omeprazole 20 MG 1 capsule Orally Once a day Active traZODone HCl 100 MG TOME DOS TABLETAS T ODOS [place] BR[place] FOR 30 DAYS Oral for 30 Act marleni Vitamin B Complex Ac tive Lisinopril 40 MG TOME GREGORY TABLETA TOD OS [place] Oral for 30 Active Problems Problem Type SNOMED Code ICD Code Onset Dates Problem Status W/U Status Risk Notes Problem [id number] Esophageal stricture (K22.2) Active confirmed Problem [id number] GERD with esophagitis (K21.0) Active confirmed Plan Of Treatment Future Test Test Name Order Date UPPER GI ENDOSCOPY BALLOOON DILATION OF ESOPH 08/05/2014 Insurance Providers Payer Name Payer Address Payer Phone Subscriber Number Group Number Insured Name Patient Relationship to Insured Coverage Start Date Coverage End Date [facility] [address] [place] [phone] [id number] SRAVAN MCHUGH Self - patient is the insured Medical (General) History Medical History History ICD Code Denies [place],DM,CVA,Lung disease,renal dise ase Reports a negative colonoscopy at [facility] in approx 2009 HTN Barium Swallow in [...]
== END 2025-01-03 11:27 | disposition home or self-care (01) ==
LOC: HO.HCS 11:07
PROVIDERS: PCP Internal Medicine; Visit Provider Internal Medicine Cardiovascular Disease
DX: I25.10 Atherosclerotic heart disease of native coronary artery without angina pectoris (principal); I10 Essential (primary) hypertension
CPT/HCPCS: 99214; G2211

== ENCOUNTER → 2025-01-03 11:06 | Outpatient (BNVA) | payer OTHER, SELFPAY | PROVIDERS: PCP Internal Medicine; Visit Provider Internal Medicine Cardiovascular Disease | DX: I25.10 Atherosclerotic heart disease of native coronary artery without angina pectoris (principal); I10 Essential (primary) hypertension | CPT/HCPCS: 99212 ==

== ENCOUNTER 2025-01-09 10:24 | Outpatient (AMB) | payer OTHER, SELFPAY ==
--- NOTE | 2025-01-09 10:55 | A.OFFVIS_ITS ---
Intake Visit Reasons: hematuria Intake Note: patient presents today for: new pt hematuria urology medications: finasteride blood thinners: aspirin House Painter Helper Required: Yes Accompanied by: Daughter Allergies Penicillins (PENICILLINS) Allergy (Intermediate, Verified 01/09/25 10:56) Rash atorvastatin Adverse Reaction (Intermediate, Verified 01/09/25 10:56) elevated liver enzymes quetiapine (From SEROQUEL) Adverse Reaction (Intermediate, Verified 01/09/25 10:56) ERRATIC BEHAVIOR, NIGHTMARES,DIZZINESS HPI Comments Details: Cristino is a pleasant Venezuelan-speaking male. He is a patient of Dr. Singh. He is seen for the following urologic conditions - elevated PSA - lower urinary tract symptoms with episode of retention Venezuelan translation provided in office by qualified medical billing and coding specialist Initial evaluation of elevated PSA and hematuria UA today negative Had been seen in emergency room beginning of November with urinary retention Started on finasteride which has been doing well Elevated PSA He presents for Initial evaluation of elevated PSA Lower Urinary Tract Symptoms include - incomplete emptying, weakness of stream, nocturia Investigations include - PSA - 07/23 5.0 32% - ASHLEY deferred Individualized Prostate Cancer Risk Calculator - PCPT Calculator Therapeutic plan will be - continue finasteride, three-month follow-up bladder ultrasound on PSA [facility] Medical History Physical exam Lesion of lip Mass of lip Pre-op evaluation Obesity (BMI 30.0-34.9) Need for dental care Pre-operative clearance Left shoulder pain CVA (cerebral vascular accident) Myocardial infarction Hypovitaminosis D Mixed hyperlipidemia Right-sided lacunar infarction CAD (coronary artery disease) Dyslipidemia Hearing loss GERD (gastroesophageal reflux disease) Insomnia Essential hypertension Pernicious anemia Surgical History Hx of esophagogastroduodenoscopy Stented coronary artery Family History Father No problems noted. Mother No problems noted. Social History Household Members: None Housing: Apartment Do you presently have visiting nurse or other home services: No Alcohol intake: never Patient Tobacco Use Status: Former Tobacco user Tobacco use type: Cigarette Cigarettes Per Day: 2 e-Cigarette/Vaping Use: Never Used Second Hand Smoke Exposure: No service: No Current occupational status: retired Cognitive needs: No Hearing needs: Yes Vision needs: No Review of Systems Const Denies chills and Denies fever(s) Card Reports no additional complaints and Denies syncope Resp Denies cough GI Denies abdominal pain and Denies heartburn Reports as per HPI and Denies change in libido Neuro Denies syncope Psych Denies change in libido Endo Denies change in libido Physical Exam Const General: cooperative, healthy appearing, comfortable and no acute distress Orientation/consciousness: patient oriented x3 HEENT Face and sinus: Yes normal facial exam Mouth: moist mucous membranes Neck Neck: Yes normal visual inspection, Yes full ROM and Yes trachea midline Chest Chest palpation & inspection: normal inspection of the chest Resp Effort & Inspection: normal respiratory effort, able to speak in complete sentences and no respiratory distress GI Inspection: Yes normal to inspection Back/Spine/Pelvis Cervical Spine: normal cervical lordosis Thoracic/Lumbar Spine: thoracic and lumbar spine normal to inspection Skin General skin exam: no rashes or lesions noted Neuro General: patient oriented x3, gait normal, tone normal and moves all extremities Extrem General: Yes normal to inspection and Yes capillary refill normal Assessment & Plan Assessment & Plan (1) Incomplete emptying of bladder due to benign prostatic hyperplasia: Code(s): N40.1 - Benign prostatic hyperplasia with lower urinary tract symptoms; R33.9 - Retention of urine, unspecified Category: Medical (2) Bladder outlet obstruction: Code(s): N32.0 - Bladder-neck obstruction Category: Medical (3) Elevated PSA: Code(s): R97.20 - Elevated prostate specific antigen [PSA] Category: Medical Plan Continue finasteride Three-month follow-up bladder ultrasound PSA Orders: Orders US bladder 3 Months N40.1 - Benign prostatic hyperplasia with lower urinary tract symptoms, R33.9 - Retention of urine, unspecified PSA,Total (Free>4and<10) 3 Months N40.1 - Benign prostatic hyperplasia with lower urinary tract symptoms, R33.9 - Retention of urine, unspecified Medications: Changed From finasteride (Proscar) 5 mg PO DAILY 30 days 30 tabs 1RF N40.1 - Benign prostatic hyperplasia with lower urinary tract symptoms, R33.9 - Retention of urine, unspecified To finasteride (Proscar) 5 mg PO DAILY 90 tabs 1RF 90 days N40.1 - Benign prostatic hyperplasia with lower urinary tract symptoms, R33.9 - Retention of urine, unspecified Patient Instructions: This note is constructed using voice recognition software. While every effort has been made to ensure accuracy hog room supervisor errors may have been included. Imaging studies, laboratory and physical exam results were discussed and reviewed in detail. No major barriers to patient understanding were identified. An opportunity to ask questions regarding the treatment plan was provided. All questions were answered. The patient expressed understanding and agreement with the above treatment plan. The patient is aware they should contact our office by phone for worsening of their current condition or the appearance of new urologic symptoms. Compliance is encouraged with any medications and followup testing that is ordered. It is a privilege to participate in the urologic care of your patient. If you have any questions or concerns regarding treatment for the above conditions, or other urologic issues, please do not hesitate to contact me. The office telephone contact is [phone]. Sincerely, Dr Biju Velazquez MD, [facility]LE[facility]ANDR[facility] - Urology Compassionate Specialist Care for the Genitourinary System Coding Level of Care Code New Pt Level 4 (01249) Diagnoses Incomplete emptying of bladder due to benign prostatic hyperplasia N40.1; R33.9 Bladder outlet obstruction N32.0 Elevated PSA R97.20
--- OUTSIDE RECORDS SUMMARY | 2025-01-09 13:14 | XMS_ITS | Patient Health Record ---
Author Organization [facility] Address [address] [place] [id number] Care Team Providers Care Analyst Name Role Phone Hawa Chatman Primary Care Provider Julio Vieyra [phone] Allergies Allergen (clinical drug ingredient) Drug/Non Drug [...] Problem Status W/U Status Risk Notes Problem [id number] Esophageal stricture (K22.2) Active confirmed Problem [id number] GERD with esophagitis (K21.0) Active confirmed Plan Of Treatment Future Test Test Name Order Date UPPER GI ENDOSCOPY BALL[place] DILATION OF ESOPH 08/05/2014 Insurance Providers Payer Name Payer Address Payer Phone Subscriber Number Group Number Insured Name Patient Relationship to Insured Coverage Start Date Coverage End Date [facility] [address] [place] [phone] [id number] SRAVAN MCHUGH Self - patient is the insured Medical (General) History Medical History History ICD Code Denies PA,DM,CVA,Lung disease,renal dise ase Reports a negative colonoscopy at [facility] in approx 2009 HTN Barium Swallow in [...]
== END 2025-01-09 11:28 | disposition home or self-care (01) ==
LOC: HO.HUSH 10:24
PROVIDERS: PCP Internal Medicine; Visit Provider Urology
DX: N40.1 Benign prostatic hyperplasia with lower urinary tract symptoms (principal); R33.9 Retention of urine, unspecified; N32.0 Bladder-neck obstruction; R97.20 Elevated prostate specific antigen [PSA]; Z13.9 Encounter for screening, unspecified
CPT/HCPCS: 99204

== ENCOUNTER → 2025-01-09 10:24 | Outpatient (BNVA) | payer OTHER, SELFPAY | PROVIDERS: PCP Internal Medicine; Visit Provider Urology | DX: N40.1 Benign prostatic hyperplasia with lower urinary tract symptoms (principal); N32.0 Bladder-neck obstruction; R33.9 Retention of urine, unspecified; R97.20 Elevated prostate specific antigen [PSA] | CPT/HCPCS: 81003; 99202 ==

== ENCOUNTER 2025-01-11 09:16 | Outpatient (REF) | payer OTHER, SELFPAY ==
--- OUTSIDE RECORDS SUMMARY | 2025-01-11 09:20 | XMS_ITS | Patient Health Record ---
Author Organization [facility] Address [address] [place] [id number] Care Team Providers Care Ticket Maker Name Role Phone Hawa Chatman Primary Care Provider Julio Vieyra [phone] Allergies Allergen (clinical drug ingredient) Drug/Non Drug [...] Problem Status W/U Status Risk Notes Problem [id number] Esophageal stricture (K22.2) Active confirmed Problem [id number] GERD with esophagitis (K21.0) Active confirmed Plan Of Treatment Future Test Test Name Order Date UPPER GI ENDOSCOPY BALLOOON DILATION OF ESOPH 08/05/2014 Insurance Providers Payer Name Payer Address Payer Phone Subscriber Number Group Number Insured Name Patient Relationship to Insured Coverage Start Date Coverage End Date [facility] [address] [place] [phone] [id number] SRAVAN MCHUGH Self - patient is the insured Medical (General) History Medical History History ICD Code Denies PR,DM,CVA,Lung disease,renal dise ase Reports a negative colonoscopy at [facility] in approx 2009 HTN Barium Swallow [...]
[2025-01-13 22:09] LABS: Prot Elec - Albumin 3.9 g/dL (3.8-4.8); Prot Elec - Alpha1 0.3 g/dL (0.2-0.3); Prot Elec - Alpha2 0.7 g/dL (0.5-0.9); Prot Elec - Beta 1 0.4 g/dL (0.4-0.6); Prot Elec - Beta 2 0.5 g/dL (0.2-0.5); Prot Elec - Gamma 1.8 g/dL (0.8-1.7); Prot Elec - Total Protein 7.6 g/dL (6.1-8.1)
== END 2025-01-11 09:17 | disposition home or self-care (01) ==
LOC: HO.LAB 09:16
PROVIDERS: PCP Internal Medicine; Visit Provider Internal Medicine
DX: R77.8 Other specified abnormalities of plasma proteins (principal)
CPT/HCPCS: 36415; 84165

== ENCOUNTER 2025-03-03 13:19 | Outpatient (AMB) | payer OTHER, SELFPAY ==
[2025-03-03 13:26] VITALS: BP 140/64; PULSE 56; O2SAT 98; BMI 30.6
--- NOTE | 2025-03-03 13:26 | MHC.OFFVIS ---
Vital Signs 03/03/25 13:26 Height 5 ft 7 in Weight 195 lb 1.745 oz BMI 30.6 BP 140/64 H Blood Pressure Location Lt brachial Position Sitting Pulse 56 Pulse Source Pulse Oximeter Pulse Oximetry (%) 98 Oxygen Delivery Method Room Air Intake Visit Reasons: Chronic cough Residence Life Coordinator Required: No Residence Life Coordinator Services: Residence Life Coordinator Offered & Declined Residence Life Coordinator Name: MD speaks albanian Allergies Penicillins (PENICILLINS) Allergy (Intermediate, Verified 03/03/25 13:29) Rash atorvastatin Adverse Reaction (Intermediate, Verified 03/03/25 13:29) elevated liver enzymes quetiapine (From SEROQUEL) Adverse Reaction (Intermediate, Verified 03/03/25 13:29) ERRATIC BEHAVIOR, NIGHTMARES,DIZZINESS HPI Comments Details: The patient is here for pulmonary evaluation. The patient is a 79-year-old man presenting with a chronic cough. The patient had been a lifelong smoker. He quit few years back. He started developing cough and also the family states that he has not shortness of breath with activity. He does have a rescue inhaler that he does not always use it. The patient also states that he has not wheezing at times. He did have a CT scan of the chest in 2023. I did personally reviewed. No evidence of any significant emphysema or bronchitis or parenchymal disease. He does have a small hiatal hernia. The patient overall is doing well he does have good breath sounds with some post exhalation coughing. Likely some degree of small airways disease. Will go ahead start him on WAnoro to see if we can provide some relief in of his airway disease. In the meantime he will continue with his rescue inhaler as needed. The patient will undergo pulmonary function studies to better address his lung capacity. During the visit we did go for brief walking oximetry in his oxygen was 196% with activity is heart rate was stable. Is all reassuring. Therefore he will start the respiratory inhalers and then he will follow-up after his breathing studies. [facility] Medical History Physical exam Lesion of lip Mass of lip Pre-op evaluation Obesity (BMI 30.0-34.9) Need for dental care Pre-operative clearance Left shoulder pain CVA (cerebral vascular accident) Myocardial infarction Hypovitaminosis D Mixed hyperlipidemia Right-sided lacunar infarction CAD (coronary artery disease) Dyslipidemia Hearing loss GERD (gastroesophageal reflux disease) Insomnia Essential hypertension Pernicious anemia Surgical History Hx of esophagogastroduodenoscopy Stented coronary artery Family History Father No problems noted. Mother No problems noted. Social History Household Members: None Housing: Apartment Do you presently have visiting nurse or other home services: No Alcohol intake: never Patient Tobacco Use Status: Former Tobacco user Tobacco use type: Cigarette Cigarettes Per Day: 2 e-Cigarette/Vaping Use: Never Used Second Hand Smoke Exposure: No service: No Current occupational status: retired Cognitive needs: No Hearing needs: Yes Vision needs: No Review of Systems Const Denies chills, Denies fatigue, Denies fever(s), Denies weight gain and Denies weight loss ENT Reports no additional complaints Card Denies chest pain, Denies leg edema, Denies lightheadedness, Denies palpitations, Denies dyspnea and Reports dyspnea on exertion Resp Reports cough, Denies dyspnea, Reports dyspnea on exertion and Reports wheezing GI Denies hematochezia and Denies change in stool character Musc Denies abnormal gait, Denies muscle weakness and Denies radiating pain into limb Skin/Breast Denies rash Neuro Denies abnormal gait Endo Denies fatigue and Denies palpitations Emerson/Lymph Reports no additional complaints Aller/Immun Reports wheezing Physical Exam Vital Signs: Last Vital Signs Pulse 56 03/03/25 13:26 BP 140/64 H 03/03/25 13:26 Pulse Ox 98 03/03/25 13:26 Oxygen Delivery Method Room Air 03/03/25 13:26 BMI result Body Mass Index 30.6 Const General: comfortable Neck Neck: Yes supple Chest Chest palpation & inspection: normal inspection of the chest Resp Effort & Inspection: normal respiratory effort Auscultation: diminished lung sounds Cardio Heart sounds: S1 normal heart sound present and S2 normal heart sound present GI Palpation (GI): Soft to palpation Skin General skin exam: no rashes or lesions noted Extrem General: No clubbing and No cyanosis Assessment & Plan Assessment & Plan (1) Dyspnea on exertion: Code(s): R06.09 - Other forms of dyspnea Category: Medical (2) Chronic cough: Code(s): R05.3 - Chronic cough Category: Medical Plan Start Anoro daily continue NAIMA as needed PFTs F/U 3-4 months Orders: Orders PFT pulmonary function test Today R06.09 - Other forms of dyspnea Medications: New umeclidinium-vilanterol 62.5-25 mcg/actuation (Anoro Ellipta) 1 inh inhalation DAILY 60 ea 11RF J44.9 - Chronic obstructive pulmonary disease, unspecified Coding Level of Care Code New Pt Level 4 (26653) Diagnoses Dyspnea on exertion R06.09 Chronic cough R05.3 Time Spent (min) 40
== END 2025-03-03 13:53 | disposition home or self-care (01) ==
LOC: HO.HPS 13:20
PROVIDERS: PCP Internal Medicine; Visit Provider Hospitalist
DX: R06.09 Other forms of dyspnea (principal); R05.3 Chronic cough
CPT/HCPCS: 99204

== ENCOUNTER → 2025-03-03 13:19 | Outpatient (BNVA) | payer OTHER, SELFPAY | PROVIDERS: PCP Internal Medicine; Visit Provider Hospitalist | DX: R06.09 Other forms of dyspnea (principal); R05.3 Chronic cough | CPT/HCPCS: 99202 ==

== ENCOUNTER 2025-03-13 12:09 | Outpatient (AMB) | payer OTHER, SELFPAY ==
[2025-03-13 12:33] VITALS: BP 134/76; PULSE 65; O2SAT 93; BMI 30.2
--- NOTE | 2025-03-13 12:33 | MHC.PC.OV ---
Vital Signs 03/13/25 12:33 Height 5 ft 7 in Weight 193 lb BMI 30.2 BP 134/76 Blood Pressure Location Lt brachial Position Sitting Pulse 65 Pulse Source Pulse Oximeter Pulse Oximetry (%) 93 Oxygen Delivery Method Room Air Intake Visit Reasons: PHYSICAL Telephone Assembler Required: No Accompanied by: Self / Same As Patient Allergies Penicillins (PENICILLINS) Allergy (Intermediate, Verified 03/13/25 12:43) Rash atorvastatin Adverse Reaction (Intermediate, Verified 03/13/25 12:43) elevated liver enzymes quetiapine (From SEROQUEL) Adverse Reaction (Intermediate, Verified 03/13/25 12:43) ERRATIC BEHAVIOR, NIGHTMARES,DIZZINESS Medication List - Last Reconciled 03/13/25 by Hawa Singh MD albuterol sulfate 90 mcg/actuation (Ventolin HFA) 2 puffs inhalation Q6H PRN 30 days aspirin 81 mg PO DAILY 90 days blood pressure monitor (Blood Pressure Kit) As directed cholecalciferol (vitamin D3) 25 mcg PO DAILY 90 days finasteride (Proscar) 5 mg PO DAILY 90 days losartan 50 mg PO DAILY 90 days magnesium oxide 400 mg PO DAILY 90 days metoprolol tartrate 25 mg PO DAILY 90 days omeprazole 20 mg PO QAM 90 days ondansetron HCl 4 mg PO Q8H PRN rosuvastatin 40 mg PO DAILY 90 days trazodone 200 mg (2 x 100 mg) PO DAILY PRN 90 days triamcinolone acetonide 0.1% 1 appl topical DAILY 30 days umeclidinium-vilanterol 62.5-25 mcg/actuation (Anoro Ellipta) 1 inh inhalation DAILY Tobacco use date assessed: 08/08/24 Fall risk assessment: No Falls in past year Last assessed Fall Risk: 03/13/25 Dental Screening Dental Screen Date: 08/08/24 HPI HPI Comments History of Present Illness Details The patient is a 79-year-old male presenting for a physical examination. He has a history of allergies to penicillin, atorvastatin, and Seroquel (quetiapine). His current medications include an unspecified inhaler, aspirin, vitamin D, ProScar (finasteride), losartan, and magnesium. Will get flu vaccine today. He is aware he needs tetanus vaccine and PCV 20. In November, the patient was seen in the emergency room for an infection and was treated with antibiotics. He has a history of hearing loss and uses hearing aids, but continues to have difficulty hearing. Also has elevated total protein and will be referred to Hematology-Oncology. [facility] Medical History (Updated 03/13/25 @ 12:57 by Hawa Singh MD) Physical exam Lesion of lip Mass of lip Pre-op evaluation Obesity (BMI 30.0-34.9) Need for dental care Pre-operative clearance Left shoulder pain CVA (cerebral vascular accident) Myocardial infarction Hypovitaminosis D Mixed hyperlipidemia Right-sided lacunar infarction CAD (coronary artery disease) Dyslipidemia Hearing loss GERD (gastroesophageal reflux disease) Insomnia Essential hypertension Pernicious anemia Surgical History Hx of esophagogastroduodenoscopy Stented coronary artery Family History Father No problems noted. Mother No problems noted. Social History Household Members: None Housing: Apartment Do you presently have visiting nurse or other home services: No Alcohol intake: never Patient Tobacco Use Status: Former Tobacco user Tobacco use type: Cigarette Cigarettes Per Day: 2 e-Cigarette/Vaping Use: Never Used Second Hand Smoke Exposure: No service: No Current occupational status: retired Cognitive needs: No Hearing needs: Yes Vision needs: No Questionnaire PHQ-9 Over the last 2 weeks, how often have you been bothered by any of the following problems? 1. Little interest or pleasure in doing things: not at all 2. Feeling down, depressed, or hopeless: not at all 3. Trouble falling or staying asleep, or sleeping too much: not at all 4. Feeling tired or having little energy: not at all 5. Poor appetite or overeating: not at all 6. Feeling bad about yourself - or that you are a failure or have let yourself or your family down: not at all 7. Trouble concentrating on things, such as reading the newspaper or watching television: not at all 8. Moving or speaking so slowly that other people could have noticed. Or the opposite - being so fidgety or restless that you have been moving around a lot more than usual: not at all 9. Thoughts that you would be better off or of hurting yourself in some way: not at all Total score: 0 Depression Screening Interpretation: Negative Depression Screening Done: Yes 01681 - PHQ-9 Billing: Yes Source: Developed by Drs. Julio Tovar, Ebonie Gutierrez, Jose Guadalupe Smith and colleagues, with an educational caio from [employer]. Thrive Questionnaire Date Thrive assessed: 02/19/25 I am a: Patient What is your living situation today?: I have a steady place to live Within the past 12 months, did the food you bought not last and you didn't have the money to get more?: Never true Within the past 12 months, did you worry whether your food would run out before you got money to buy more?: Never true Do you have trouble paying for medicines?: No Do you have trouble getting transportation to medical appointments?: No Do you have trouble paying your heating and electricity bill?: No Do you have trouble taking care of your child, family member or friend?: No Do you have trouble with day-to-day activities such as bathing, preparing meals, shopping, managing finances, etc.?: No Are you currently unemployed and looking for a job?: No Are you interested in more education?: No Please select the resources that you would like help with: None Currently or been in a relationship where the following occur: I choose not to answer THRIVE Score: 0 AUDIT C Alcohol Use Questionnaire (AUDIT-C) 1. How often do you have a drink containing alcohol?: Never 3. How often do you have six or more drinks on one occasion?: Never Total Score: 0 Score Reviewed/Action Taken: No OSMAN-7 AMB Questionnaire OSMAN-7 Date OSMAN - 7 assessed: 08/08/24 Source: Developed by Drs. Julio Tovar, Ebonie Gutierrez, Jose Guadalupe Smith and colleagues, with an educational caio from [employer]. Review of Systems Const All systems reviewed & are unremarkable except as noted in HPI and below Card Denies chest pain at rest, Denies chest pain with activity, Denies edema, Denies irregular heart rhythm, Denies claudication, Denies dyspnea, Denies dyspnea on exertion, Denies orthopnea, Denies paroxysmal nocturnal dyspnea and Denies slow heart rate Resp Denies cough, Denies dyspnea and Denies dyspnea on exertion Physical exam (Primary Care) Vital Signs: Last Vital Signs Pulse 65 03/13/25 12:33 BP 134/76 03/13/25 12:33 Pulse Ox 93 03/13/25 12:33 Oxygen Delivery Method Room Air 03/13/25 12:33 BMI result Body Mass Index 30.2 Tobacco/Smoking Status: Tobacco use Status Tobacco use date assessed 08/08/24 03/13/25 12:37 Patient Tobacco Use Status Former Tobacco user 03/13/25 12:37 Tobacco use type Cigarette 03/13/25 12:37 e-Cigarette/Vaping Use Never Used 03/13/25 12:37 PHQ-9: PHQ-9 Score PHQ-9: Total score 0 03/13/25 12:57 Depression Screening Interpretation: Negative Thrive Assessment: Date of Thrive Assessment Date Thrive assessed 02/19/25 03/13/25 12:37 Currently or been in a relationship where the following occur: I choose not to answer HENLA Head: Yes normal to inspection, Yes normocephalic and Yes atraumatic Ears: external ears normal Eyes General: appearance normal, both eyes and all related structures Eyelids: Yes eyelids normal Conjunctivae: conjunctivae normal Neck Neck: Yes normal visual inspection and Yes supple Resp Effort & Inspection: normal respiratory effort Auscultation: clear to auscultation bilaterally Cardio Jugular venous distension: no JVD Rate: regular rate Rhythm: regular rhythm Heart sounds: S1 normal heart sound present and S2 normal heart sound present GI Inspection: Yes normal to inspection Palpation (GI): Soft to palpation and nontender Auscultation: normal bowel sounds Skin General skin exam: no rashes or lesions noted Neuro General: no focal motor deficits Extrem General: Yes full ROM Psych Appearance: grossly normal Office Procedures Flu Questionnaire Does the patient have a severe egg allergy?: No Does the patient have severe life threatening allergies?: No Does the patient have a fever or illness today?: No Has the patient ever had Guillain-Hays Syndrome?: No Has the patient ever had any past reaction to a flu shot?: No Immunizations Fluarix 0530-7084 (PF) 45 mcg (15 mcg x 3)/0.5 mL IM syringe Performing Provider: Hawa Singh MD [facility] Administered by: LAURIE Walker on 03/13/25 13:00 Dose Route Admin Location Dispensed Lot Number Expiration Date [facility] [place] 0.5 mL IM Left Deltoid 0.5 mL [id number] 10/28/25 [id number] [employer] VIS Given Date VIS Provided VIS Publication Date 03/13/25 Single Vaccine 24 Eligibility Eligibility Date Funding Source Not [facility] Eligible 03/13/25 Private Coding Level of Care Code Est Pt Level 3 (63854) Est Pt Prev Care >65y(63459) Diagnoses Physical exam Z00.00 Elevated total protein R77.8 Hearing loss H91.90 Additional Codes PHQ-9 - 32019 - PHQ-9 Billing: Yes ([id number]) Time Spent (min) 33 Assessment & Plan Assessment & Plan (1) Physical exam: Code(s): Z00.00 - Encounter for general adult medical examination without abnormal findings Category: Medical (2) Elevated total protein: Code(s): R77.8 - Other specified abnormalities of plasma proteins Category: Medical (3) Hearing loss: Code(s): H91.90 - Unspecified hearing loss, unspecified ear Category: Medical Plan Plan 1. Physical exam The patient is due for tetanus and pneumonia vaccinations. An influenza vaccine will be administered today. 2. Elevated total protein The patient has an elevated protein level, which could be indicative of a blood disease such as monoclonal gammopathy of undetermined significance. A referral to Hematology will be placed for further evaluation. 3. Hearing Loss, Unspecified The patient continues to experience hearing difficulty despite using hearing aids. A referral to an ENT specialist will be considered. Orders: Orders Influenza 2806-0336 Immunization Today Z23 - Encounter for immunization Lipid Panel Today E78.5 - Hyperlipidemia, unspecified Complete Blood Count Auto Diff Today D64.9 - Anemia, unspecified Vitamin D 25-OH Total Today E55.9 - Vitamin D deficiency, unspecified Vitamin B12 and Folate Today E53.8 - Deficiency of other specified B group vitamins Comprehensive [place]. Panel Fast Today Z00.00 - Encounter for general adult medical examination without abnormal findings Immunofixation Pnl, Serum Today R77.8 - Other specified abnormalities of plasma proteins Referrals Hematology & Oncology Referral R77.8 - Other specified abnormalities of plasma proteins Ear/Nose/Throat Referral H91.90 - Unspecified hearing loss, unspecified ear
--- OUTSIDE RECORDS SUMMARY | 2025-03-13 15:23 | XMS_ITS | Data Portability ---
Author Organization [facility] Address [address] [place] [address] Care Team Providers Care Garment Finisher Name Role Phone HIM CCA OTHER Assessment Encounter Date Assessment Date Assessment LastModified by Organization Details LastModified Time 11/16/2023 11/16/2023 I have reviewed and agree with the assessment and plan as daocumented by the service control operator. I provided real-time medical direction for this encounter and was immediately available to provide additional phone-based assistance as needed. History as noted in EMR and by service control operator. I would add / emphasize: Via the use of bag adjuster. Pt complaining of SOB worsened by increased [...] intramusc ular solution 2023 024 pallfather [id number] [address] [place], [address], 4 10:16:04 Patient TargetsNo targets recorded. Patient InstructionsNo instructions recorded. Reason for Referral None Reported. Medical Equipment None Reported. Allergies Allergen ID Allergen Name Allergen Category Reaction Reaction Severity Criticality Documentation Date Start Date Code Code System Note Provider Name and Address Organization Details Recorded Time 7275 Product containin g penicilli n (product) medicatio n Not available Not available Not available 02/27/2024 64381 8001 SNOMED Not Available [facility] - production [...] blood by Pulse oximetry Heart rate Systolic And Diastolic Provider Name and Address Organization Details Last Updated DateTime 4 16 /min 97.6 [degF] 26661.4 8 g 97 % 97 % 86 /min 160/98 mm[Hg] Not Available [facility] - production 4 10:04:26 Social History None recorded. Functional Status None recorded. Mental Status None recorded. Family History Nothing Reported. Medical History No medical history recorded. Past Encounters Encounter ID Performer Location Encounter Start Date Encounter Closed Date Diagnosis/Indication Diagnosis SNOMED-CT Code Diagnosis ICD10 Code Diagnosis IMO Codes Diagnosis Note [id number] Chandan Tsai MD [facility] [address] [place] [phone] 11/16/2023 10:04:24 11/16/2023 16:04:47 Dyspnea 028240027 R06.00 Low back pain 791529122 M54.50 Health Concerns Section Related Observation LastModified by Organization Detai ls LastModified Time None Recorded Concern Status LastModified by Organization Details LastModified Time None Recorded Advance Directives Directive None Recorded Payers Insurance Date Sequence Insurance Name Policy Number Policy Collado Covered Member ID Collado Member ID Guarantor Name 2023 1 [facility] - DOS ON OR AFTER 2022 - DUAL ELIGIBLE - GROUP HOME OPTIONS AND ONE CARE (MEDICARE REPLACEMENT/AD VANTAGE - HMO) Cristino Orellana [id number] Cristino Orellana Notes Date Note Type Note Provider Name and Address Organization Details Recorded Time 11/16/2023 text/html CRC Nurse Triage Notes (Desi Franklin): Reason For Request: Patient wants a visit on November 15, to check on breathing problems. Chief Complaints: Shortness of Breath/Dyspnea PMH: Hypertension, Heart Disease, Other Allergies: Penicillin Comments: PMH: CVA, [place], High CholesterolAllergie s: Seroquel Daughter requesting visit for patient with to assess respiratory status. States he is a chronic smoker. Recently trying to stop smoking. Recent x-rays and CT scan. No results received yet. Noticed increased sob over the last few months. Referred to Cipher Expert recently. Increased dyspnea and fatigue on exertion. Patient has a worsening cough. c/o new back pain. No known fever. Uses Albuterol for wheezing in the past. Daughter called PCP who recommended patient go to the ED due to 02 level and respirations. Patient refusing. Daughter requesting visit for tomorrow so she can be present for the visit. Member is Mozambican speaking. Daughter states breathing is stable currently. ................... ................... ................... ................... ................... ................... ................... ........ Tire Stripper Note From Carl Arriola: Pt daughter wanted pt evaluated for sob he has been having on the really hot days. Pt denies sob on arrival. Pt denies cp , NVD , dizziness , headache. Pt sts uses inhaler 2x per day on the hot days. Pt has been referred to special education itinerant teacher however sts he doesn t want to go. Pt sts having some sciatica pain radiating down towards buttocks/legs. Pt using advil back pain with some relief. Baseline vitals assessed, lungs clear, afebrile, no cva tenderness. C contacted and 15mg toradol IM. Pt advised to follow up with pcp and special education itinerant teacher appt. Pt education on signs indicating the ER. Tire Stripper Allergies: Penicillin ................... ................... ................... ................... ................... ................... ................... ........ Disposition: Fulfilled Chandan Tsai MD [address] [facility],[address], [place], [address], SOFIA ALANIZ 11/16/2023 10:34:28
--- OUTSIDE RECORDS SUMMARY | 2025-03-13 15:23 | XMS_ITS | Patient Health Record ---
Author Organization [facility] Address [address] [place] [id number] Care Team Providers Care Choir Member Name Role Phone Hawa Chatman Primary Care Provider Julio Vieyra [phone] Allergies Allergen (clinical drug ingredient) Drug/Non Drug [...] T ODOS [place] FOR 30 DAYS Oral; Duration: 30 Active Vitamin B Complex Ac tive Lisinopril 40 MG TOME GREGORY TABLETA TOD OS [place] Oral; Duration: 30 Active Problems Problem Type SNOMED Code ICD Code Onset Dates Problem Status W/U Status Risk Notes Problem Esophageal stricture (04524345) Esophageal stricture (K22.2) Active confirmed Problem Gastroesophageal reflux disease with esophagitis (disorder) (761837495) GERD with esophagitis (K21.0) Active confirmed Plan Of Treatment Future Test Test Name Order Date UPPER GI ENDOSCOPY BALLOOON DILATION OF ESOPH 08/05/2014 Insurance Providers Payer Name Payer Address Payer Phone Subscriber Number Group Number Insured Name Patient Relationship to Insured Coverage Start Date Coverage End Date [facility] [address] [place] [phone] [id number] SRAVAN MCHUGH Self - patient is the insured Medical (General) History Medical History History ICD Code Denies MD,DM,CVA,Lung disease,renal dise ase Reports a negative colonoscopy at [facility] in approx 2009 HTN Barium Swallow in [...]
== END 2025-03-13 13:04 | disposition home or self-care (01) ==
LOC: HO.HMCH 12:11
PROVIDERS: PCP Internal Medicine; Visit Provider Internal Medicine
DX: Z00.00 Encounter for general adult medical examination without abnormal findings (principal); R77.8 Other specified abnormalities of plasma proteins; H91.90 Unspecified hearing loss, unspecified ear; Z23 Encounter for immunization

== ENCOUNTER → 2025-03-13 12:09 | Outpatient (BNVA) | payer OTHER, SELFPAY | PROVIDERS: PCP Internal Medicine; Visit Provider Internal Medicine | DX: Z00.00 Encounter for general adult medical examination without abnormal findings (principal); R77.8 Other specified abnormalities of plasma proteins; H91.90 Unspecified hearing loss, unspecified ear; E78.5 Hyperlipidemia, unspecified; D64.9 Anemia, unspecified; E55.9 Vitamin D deficiency, unspecified; E53.8 Deficiency of other specified B group vitamins; Z23 Encounter for immunization | CPT/HCPCS: 90471; 90656; 96127; 99397 ==

== ENCOUNTER 2025-04-07 11:19 | Outpatient (REF) | payer OTHER, SELFPAY ==
--- NOTE | ~2025-04-07 | US_ITS ---
CLINICAL HISTORY: N40.1 - Benign prostatic hyperplasia with lower urinary tract symptoms US Urinary Bladder Comparison: None Findings: The urinary bladder is unremarkable. Prevoid volume: 126 mLPostvoid volume: 23 mL Ureteral jets are visualized bilaterally. The prostate gland measures 4.0 x 4.5 x 4.2 cm. Prostate volume is estimated at 39.5 mL. IMPRESSION: 1. Enlarged prostate gland. 2. Minimal postvoid residual within the urinary bladder. This document has been electronically signed by: Naima Marshall MD on 04/08/2025 16:13:33
== END 2025-04-07 11:20 | disposition home or self-care (01) ==
LOC: HO.US 11:19
PROVIDERS: PCP Internal Medicine; Visit Provider Urology
DX: N40.1 Benign prostatic hyperplasia with lower urinary tract symptoms (principal); R33.8 Other retention of urine
CPT/HCPCS: 76857

== ENCOUNTER → 2025-04-07 11:24 | Outpatient (BNV) | payer OTHER, SELFPAY | PROVIDERS: PCP Internal Medicine; Visit Provider Radiology Diagnostic Radiology | DX: N40.1 Benign prostatic hyperplasia with lower urinary tract symptoms (principal) | CPT/HCPCS: 76857 ==

== ENCOUNTER 2025-04-08 08:14 | Outpatient (REF) | payer OTHER, SELFPAY ==
[2025-04-08 08:30] LABS: MANUAL DIFF FLAG NO
[2025-04-08 09:20] LABS: Hematocrit 38.6 % (42.0-52.0); Hemoglobin 12.9 g/dl (14.0-18.0); Imm Gran Abs Auto 0.04 X10*3/uL (0.00-0.03); Imm Gran Pct Auto 0.8 % (0.0-0.4); Lymphocytes Absolute Auto 1.9 X10*3/uL (1.2-4.9); Mean Corpuscular HGB Conc 33.4 g/dl (31.0-36.0); Mean Corpuscular Hemoglobin 32.2 pg (27.0-33.0); Mean Corpuscular Volume 96.3 fL (80.0-98.0); NRBC Abs Auto 0.000 X10*3/uL (0.0-0.012); NRBC Pct Auto 0.0 /100WBC (0.0-0.2); Platelet Count 240 X10*3/uL (160-400); Red Blood Count 4.01 X10*6/uL (4.60-5.80); White Blood Count 4.8 X10*3/uL (4.8-10.8)
[2025-04-08 10:08] LABS: Chloride 110 mmol/L (96-108); Potassium 3.7 mmol/L (3.3-5.1); Sodium 141 mmol/L (135-145)
[2025-04-08 10:09] LABS: Alanine Aminotransferase 41 U/L (0-40); Albumin Level 3.9 g/dL (3.5-5.0); Alkaline Phosphatase 80 U/L (39-117); Anion Gap 8 (12-20); Aspartate Amino Transferase 53 U/L (5-37); Blood Urea Nitrogen 11 mg/dL (9-16); Calcium 8.9 mg/dL (8.4-10.2); Carbon Dioxide 27 mmol/L (22-29); Cholesterol 110 mg/dL (<200); Estimated Glomerular Filt Rate > 60; HDL Cholesterol 27 mg/dL (>40); Total Protein 7.5 g/dL (6.5-8.0); Triglycerides 232 mg/dL (<150)
[2025-04-08 10:25] LABS: PSA,Total (Free>4and<10) 5.42 ng/mL (0.00-4.00)
[2025-04-08 10:36] LABS: Folate 7.0 ng/mL (> or = 4.0); Vitamin B12 516 pg/mL (200-900)
[2025-04-10 12:29] LABS: Free Prostate Spec Ag 1.2 ng/mL; Percent Free Prostate Spec Ag 20 % (calc) (>25)
== END 2025-04-08 08:15 | disposition home or self-care (01) ==
LOC: HO.LAB 08:14
PROVIDERS: PCP Internal Medicine; Visit Provider Urology
DX: Z00.00 Encounter for general adult medical examination without abnormal findings (principal); Z12.5 Encounter for screening for malignant neoplasm of prostate; E53.8 Deficiency of other specified B group vitamins; N40.1 Benign prostatic hyperplasia with lower urinary tract symptoms; R33.9 Retention of urine, unspecified; E78.5 Hyperlipidemia, unspecified; D64.9 Anemia, unspecified; R77.8 Other specified abnormalities of plasma proteins; E55.9 Vitamin D deficiency, unspecified
CPT/HCPCS: 36415; 80053; 80061; 82306; 82607; 82746; 82784; 84153; 84154; 85025; 86334

== ENCOUNTER 2025-04-10 09:59 | Outpatient (AMB) | payer OTHER, SELFPAY ==
--- NOTE | 2025-04-10 10:00 | A.OFFVIS_ITS ---
Intake Visit Reasons: 3m/US/PSA/ UA Intake Note: patient presents today for: 3 mo follow up urology medications: finasteride blood thinners: aspirin Imaging: BLadder US 04/07/25 Labs done : 04/08/25 Total PSA 5.42 PVR:35 mls Manager Requirements Required: Yes Accompanied by: Daughter Allergies Penicillins (PENICILLINS) Allergy (Intermediate, Verified 04/10/25 10:04) Rash atorvastatin Adverse Reaction (Intermediate, Verified 04/10/25 10:04) elevated liver enzymes quetiapine (From SEROQUEL) Adverse Reaction (Intermediate, Verified 04/10/25 10:04) ERRATIC BEHAVIOR, NIGHTMARES,DIZZINESS HPI Comments Details: Cristino is a pleasant [place] Citizen-speaking male. He is a patient of Dr. Singh. He is seen for the following urologic conditions - elevated PSA - lower urinary tract symptoms with episode of retention [place] Citizen translation provided in office by qualified remote medical coder Three-month follow-up on finasteride PSA remains stable Continue medication Six-month follow-up repeat PSA PVR today low Elevated PSA He presents for Follow-up evaluation of elevated PSA Lower Urinary Tract Symptoms include - incomplete emptying, weakness of stream, nocturia Investigations include - PSA - 07/23 5.0 32%, 04/24 5.4 - ASHLEY deferred - bladder ultrasound 40 g Therapeutic plan will be - continue finasteride, three-month follow-up bladder ultrasound on PSA [facility] Medical History (Updated 03/13/25 @ 12:57 by Hawa Singh MD) Physical exam Lesion of lip Mass of lip Pre-op evaluation Obesity (BMI 30.0-34.9) Need for dental care Pre-operative clearance Left shoulder pain CVA (cerebral vascular accident) Myocardial infarction Hypovitaminosis D Mixed hyperlipidemia Right-sided lacunar infarction CAD (coronary artery disease) Dyslipidemia Hearing loss GERD (gastroesophageal reflux disease) Insomnia Essential hypertension Pernicious anemia Surgical History Hx of esophagogastroduodenoscopy Stented coronary artery Family History Father No problems noted. Mother No problems noted. Social History Household Members: None Housing: Apartment Do you presently have visiting nurse or other home services: No Alcohol intake: never Patient Tobacco Use Status: Former Tobacco user Tobacco use type: Cigarette Cigarettes Per Day: 2 e-Cigarette/Vaping Use: Never Used Second Hand Smoke Exposure: No service: No Current occupational status: retired Cognitive needs: No Hearing needs: Yes Vision needs: No Review of Systems Const Denies chills and Denies fever(s) Card Reports no additional complaints and Denies syncope Resp Denies cough GI Denies abdominal pain and Denies heartburn Reports as per HPI and Denies change in libido Neuro Denies syncope Psych Denies change in libido Endo Denies change in libido Physical Exam Const General: cooperative, healthy appearing, comfortable and no acute distress Orientation/consciousness: patient oriented x3 HEENT Face and sinus: Yes normal facial exam Mouth: moist mucous membranes Neck Neck: Yes normal visual inspection, Yes full ROM and Yes trachea midline Chest Chest palpation & inspection: normal inspection of the chest Resp Effort & Inspection: normal respiratory effort, able to speak in complete sentences and no respiratory distress GI Inspection: Yes normal to inspection Back/Spine/Pelvis Cervical Spine: normal cervical lordosis Thoracic/Lumbar Spine: thoracic and lumbar spine normal to inspection Skin General skin exam: no rashes or lesions noted Neuro General: patient oriented x3, gait normal, tone normal and moves all extremities Extrem General: Yes normal to inspection and Yes capillary refill normal Office Procedures Post Void Residual Post Residual Void Post Void Residual (PVR): 35 70422-Lpty Void Residual by ultrasound Results AMB Urinalysis, Automated UA Leukoctes 0 Kameron/uL Last Edit by FLAVIO Fisher on 04/10/25 10:37 UA Nitrite Negative Last Edit by FLAVIO Fisher on 04/10/25 10:37 UA Urobilinogen 0.2 mg/dL Last Edit by FLAVIO Fisher on 04/10/25 10:37 UA Protein 15 mg/dL Last Edit by FLAVIO Fisher on 04/10/25 10:37 UA pH 6.0 Last Edit by FLAVIO Fisher on 04/10/25 10:37 UA Blood 25 Eamon/uL Last Edit by FLAVIO Fisher on 04/10/25 10:37 UA Specific Howells 1.015 Last Edit by MoreFLAVIO Guo on 04/10/25 10:3 7 UA Ketone Negative Last Edit by More JOSEPHINE LemusA on 04/10/25 10:37 UA Bilirubin 1 mg/dL Last Edit by More Lemus JOSEPHINEA on 04/10/25 10:37 UA Glucose 0 mg/dL Last Edit by More JOSEPHINE LemusA on 04/10/25 10:37 Results Reviewed Results Reviewed: Laboratory Last Values Urine pH (Auto) 6.0 04/10/25 10:36 Specific Howells (Auto) 1.015 04/10/25 10:36 Urine Protein (Auto) 15 mg/dL 04/10/25 10:36 Glucose (UA)(Auto) 0 mg/dL 04/10/25 10:36 Urine Ketones (Auto) Negative 04/10/25 10:36 Urine Blood (Auto) 25 Eamon/uL 04/10/25 10:36 Urine Nitrite (Auto) Negative 04/10/25 10:36 Urine Bilirubin (Auto) 1 mg/dL 04/10/25 10:36 Urine Urobilinogen (Auto) 0.2 mg/dL 04/10/25 10:36 Leukocyte Esterase (Auto) 0 Kameron/uL 04/10/25 10:36 Assessment & Plan Assessment & Plan (1) Bladder outlet obstruction: Code(s): N32.0 - Bladder-neck obstruction Category: Medical (2) Incomplete emptying of bladder due to benign prostatic hyperplasia: Code(s): N40.1 - Benign prostatic hyperplasia with lower urinary tract symptoms; R33.9 - Retention of urine, unspecified Category: Medical (3) Elevated PSA: Code(s): R97.20 - Elevated prostate specific antigen [PSA] Category: Medical Plan Six-month follow-up Repeat PSA Orders: Orders AMB Post Void Residual by ultrasound Today N40.1 - Benign prostatic hyperplasia with lower urinary tract symptoms PSA,Total (Free>4and<10) 6 Months N32.0 - Bladder-neck obstruction AMB Urinalysis Automated Today N13.8 - Other obstructive and reflux uropathy, N40.1 - Benign prostatic hyperplasia with lower urinary tract symptoms Medications: Refilled finasteride (Proscar) 5 mg PO DAILY 90 tabs 1RF 90 days N40.1 - Benign prostatic hyperplasia with lower urinary tract symptoms, R33.9 - Retention of urine, unspecified Patient Instructions: This note is constructed using voice recognition software. While every effort has been made to ensure accuracy underwriter solicitation director errors may have been included. Imaging studies, laboratory and physical exam results were discussed and reviewed in detail. No major barriers to patient understanding were identified. An opportunity to ask questions regarding the treatment plan was provided. All questions were answered. The patient expressed understanding and agreement with the above treatment plan. The patient is aware they should contact our office by phone for worsening of their current condition or the appearance of new urologic symptoms. Compliance is encouraged with any medications and followup testing that is ordered. It is a privilege to participate in the urologic care of your patient. If you have any questions or concerns regarding treatment for the above conditions, or other urologic issues, please do not hesitate to contact me. The office telephone contact is [phone]. Sincerely, Dr Biju Velazquez MD, [facility] - Urology Compassionate Specialist Care for the Genitourinary System Coding Level of Care Code Est Pt Level 3 (46436) Diagnoses Bladder outlet obstruction N32.0 Incomplete emptying of bladder due to benign prostatic hyperplasia N40.1; R33.9 Elevated PSA R97.20 CPT Codes Post Residual Void - PVR CPT Code: 34515-Bvqx Void Residual by ultrasound ([id number])
== END 2025-04-10 10:58 | disposition home or self-care (01) ==
LOC: HO.HUSH 10:00
PROVIDERS: PCP Internal Medicine; Visit Provider Urology
DX: N32.0 Bladder-neck obstruction (principal); N40.1 Benign prostatic hyperplasia with lower urinary tract symptoms; R33.9 Retention of urine, unspecified; R97.20 Elevated prostate specific antigen [PSA]; N13.8 Other obstructive and reflux uropathy
CPT/HCPCS: 99213

== ENCOUNTER → 2025-04-10 09:59 | Outpatient (BNVA) | payer OTHER, SELFPAY | PROVIDERS: PCP Internal Medicine; Visit Provider Urology | DX: N40.1 Benign prostatic hyperplasia with lower urinary tract symptoms (principal); N32.0 Bladder-neck obstruction; R97.20 Elevated prostate specific antigen [PSA]; R33.8 Other retention of urine; Z79.899 Other long term (current) drug therapy | CPT/HCPCS: 51798; 81003; 99212 ==